=== PATIENT | female | born 1935 | race Caucasian/White ===

== ENCOUNTER → 2016-10-10 | Outpatient (CLI) | payer OTHER ==
[~2016-10-10] MED LIST: ACET-1138 PO; ALBU1AER9 INH; ATRINS INH; Boost Nutritional Drink PO; CALCTAB7 PO; CEPH500C PO; CHOL100027 PO; ENAL1TAB34 PO; FLUT0.15 NAE; FLUTICASONE NASAL NAE; GUAI1TAB68 PO; HYDC25 PO; HYDR25TA4 PO; LATA0.009 OPB; LVQ750 PO; METO25TA3 PO; MONT1TAB5 PO; MULT-506 PO; ONDA8TAB6 PO; OXYSR10 PO; PLQ200 PO; POTA-65 PO; POTA10CA28 PO; PRD/1 PO; PRED-301 PO; PRED10TA PO; PRM/3 PO; RXC5 PO; SPRIN/30 INH; TIOTCAP INH; VNTHFA/IN INH; WARF5TAB90 PO; WLC625 PO; XPNINS INH
== END | disposition home or self-care (01) ==
LOC: C.MAMM 10:21
PROVIDERS: ATTEND Family Medicine
DX: Z78.0 Asymptomatic menopausal state (principal)

== ENCOUNTER → 2016-11-28 | Day surgery (SDC) | payer OTHER ==
[~2016-11-28] MED LIST changes: -ACET-1138 PO; +BRIMONIDINE TART 0.2% OP SOLN PER DROP CHARGE OPR ONE; +BRIMONIDINE TART 0.2% OP SOLN PER DROP CHARGE OPR SCH; +BRIMONIDINE TARTRATE 0.2% 5ML OP SCH; -ONDA8TAB6 PO; -OXYSR10 PO; +PILOCARPINE HCL 2% OP SOLN PER DROP CHARGE OPR SCH; +PREDNISOLONE ACET 1% OPR SCH; -PRM/3 PO; +PROPARACAINE 0.5% OP SOLN PER DROP CHARGE OPR SCH; -RXC5 PO; -WARF5TAB90 PO
--- NOTE | 2016-11-28 11:33 | Discharge Instructions-[facility]urgCtr ---
Discharge Instructions Date of Service Nov 28, 2016. Visit Reason for Visit: Glaucoma Discharge Discharge Diagnosis / Problem: Glaucoma Discharge Goals Goal(s): Improve disease control Activity Recommendations Activity Limitations: per Instructions/Follow-up section Anesthesia . Post Anesthesia Instructions: If you have had General Anesthesia or IV Sedation: * Do not drive today. * Resume driving when surgeon permits. * Do not make important decisions or sign legal documents today. * Call surgeon for: 1. Temperature elevations greater than 101 degrees F. 2. Uncontrollable pain. 3. Excessive bleeding. 4. Persistent nausea and vomiting. 5. Medication intolerance (nausea, vomiting or rash). * For nausea and vomiting use only clear liquids such as: tea, soda, bouillon until nausea subsides, then gradually increase diet as tolerated. * If you have any concerns or questions, call your surgeon's office. If physician is unavailable and it is an emergency, call 911 or go to the nearest emergency room. . Instructions / Follow-Up Instructions / Follow-Up ACTIVITY RECOMMENDATIONS: * No limitations RETURN TO SCHOOL/WORK: * No limitations DIET: * No limitations MEDICATIONS: Resume previous medications unless instructed otherwise by your surgeon. * Please use Prednisolone acetate drops prescription given to you at your office appointment as follows: 1 drop in effected eye 4 times a day for 5 days. * Continue all glaucoma drops as usual with no interruption to either eye. SPECIAL CARE INSTRUCTIONS: Call your doctor at with any concerns or problems. FOLLOW UP VISIT: Follow-up with Dr Coronado in 1 hour. Diet Recommendations Home Diet: resume previous diet Pending Studies Studies pending at discharge: no Medical Emergencies . Who to Call and When: Medical Emergencies: If at any time you feel your situation is an emergency, please call 911 immediately. . Non-Emergent Contact Non-Emergency issues call your: [facility] [employer] . . "Provider Documentation" section prepared by Mk Coronado. .
[2016-11-28 11:34] VITALS: BP 155/95; PULSE 89; O2SAT 93
--- NOTE | 2016-11-28 11:35 | [facility] Operative Report ---
Operative Report Date of Service Nov 28, 2016. Operative Report Diagnosis: Open angle glaucoma, right eye Procedure: SLT inferior 180 degrees right eye, 53 spots, 1.3-1.5mj Complications: none I attest to the content of the Intraoperative Record and any orders documented therein. Any exceptions are noted below.
== END | disposition home or self-care (01) ==
LOC: X.SURG 09:58
PROVIDERS: ATTEND Ophthalmology
DX: H40.1110 Primary open-angle glaucoma, right eye, stage unspecified (principal); I10 Essential (primary) hypertension; J44.9 Chronic obstructive pulmonary disease, unspecified

== ENCOUNTER 2016-12-23 13:03 | Inpatient (IN) | payer OTHER ==
[~2016-12-23] VITALS: Ht 162.6 cm; Wt 77.7 kg
[~2016-12-23 13:03] MED LIST changes: -ATRINS INH; -BRIMONIDINE TART 0.2% OP SOLN PER DROP CHARGE OPR ONE; -BRIMONIDINE TART 0.2% OP SOLN PER DROP CHARGE OPR SCH; -BRIMONIDINE TARTRATE 0.2% 5ML OP SCH; -Boost Nutritional Drink PO; -CEPH500C PO; -FLUT0.15 NAE; -GUAI1TAB68 PO; -HYDR25TA4 PO; -LVQ750 PO; -METO25TA3 PO; -PILOCARPINE HCL 2% OP SOLN PER DROP CHARGE OPR SCH; -PLQ200 PO; -POTA-65 PO; -PRD/1 PO; -PRED-301 PO; -PREDNISOLONE ACET 1% OPR SCH; -PROPARACAINE 0.5% OP SOLN PER DROP CHARGE OPR SCH; -SPRIN/30 INH; -VNTHFA/IN INH; -XPNINS INH
[2016-12-23] MEDS ORDERED: SODIUM CHLORIDE 0.9% 1000ML 1,000 ML IV ONE ×2 (13:15→14:45)
[2016-12-23] MEDS ORDERED: ACETAMINOPHEN 500 MG TAB PO STA (13:15)
--- NOTE | 2016-12-23 13:27 | EMERGENCY ROOM VISIT NOTE ---
History Report prepared by [place]: Ernestine Raphael Under the Supervision of: Dr. Beto Walker M.D. First contact with patient: 13:09 Stated Complaint: WEAKNESS/ POSS. SEPSIS History of Present Illness The patient is a 81 year old female who presents to the Emergency Room with complaints of worsening weakness beginning this morning. The patient states that she has been experiencing a fever and cough. She is very dehydrated feeling. She did experience trouble breathing this morning. The patient denies urinary symptoms, rash, cold like symptoms, chest pain, or abdominal pain. She denies being on any blood thinners. Source of History: patient Onset: this morning Position: other (global) Quality: other (weakness) Timing: worsening Associated Symptoms: + fevers, + cough, No chest pain, No abdominal pain, No urinary symptoms, No rash Review of Systems All systems have been listed, reviewed, and are negative other than those previously mentioned. Please see Additional Medical History Sheet. Past Medical & Surgical Medical Problems: (1) Arthritis of right knee (2) COPD (chronic obstructive pulmonary disease) (3) Cough (4) Hypertension (5) PMR (polymyalgia rheumatica) Family History Cancer Heart disease Hypertension Lung disease Social History Smoking Status: Former Smoker Drug Use: none Marital Status: Housing Status: lives with family Occupation Status: retired Current/Historical Medications Scheduled Calcium Carbonate-Vitamin D W/ (Caltrate 600 Plus), 1 TAB PO BID Cholecalciferol (Vitamin D 1000 Unit), 5,000 INTER.UNIT PO QAM Colesevelam Hcl (Welchol), 625 MG PO BID Enalapril Maleate (Vasotec), 10 MG PO BID Fluticasone Propionate (Nasal) (Flonase Allergy Relief), 2 SPRAYS GREGORIO HS Hydrochlorothiazide (Hctz), 25 MG PO DAILY Latanoprost (Xalatan 0.005% Oph Lizz), 1 DROP OPB HS Montelukast Sodium (Montelukast Sodium), 1 TAB PO HS Multivitamin (Multivitamin), 1 TAB PO QAM Potassium Chloride (Micro-K Ext Rel), 10 MEQ PO QAM Prednisone (Prednisone), 2 MG PO DAILY Prednisone (Prednisone), 10 MG PO DAILY Tiotropium [place] (Spiriva Handihaler), 1 CAP INH DAILY Scheduled PRN Albuterol Hfa (Ventolin Hfa), 2-4 PUFFS INH UD PRN for SOB/Wheezing Allergies Coded Allergies: Aspirin (Verified Allergy, Intermediate, HIVES, 12/23/16) Erythromycin (Verified Allergy, Intermediate, HIVES, N/V, 12/23/16) Nitrofurantoin (Verified Allergy, Intermediate, rash, 12/23/16) Sulfa Antibiotics (Verified Allergy, Intermediate, HIVES, 11/28/16) Amoxicillin (Verified Adverse Reaction, Mild, NAUSEA, 12/23/16) Ciprofloxacin (Verified Adverse Reaction, Mild, N/V, 12/23/16) Clavulanic Acid (Verified Adverse Reaction, Mild, VOMITING, 12/23/16) Codeine (Verified Adverse Reaction, Mild, N/V, 12/23/16) Morphine (Verified Adverse Reaction, Mild, VOMITING, 12/23/16) Physical Exam Vital Signs Date Time Temp Pulse Resp B/P (MAP) Pulse Ox O2 Delivery O2 Flow Rate FiO2 12/23/16 15:31 88 24 113/66 94 Nasal Cannula 2.0 12/23/16 15:15 94 Nasal Cannula 2.0 12/23/16 14:37 88 22 121/62 94 Nasal Cannula 2.0 12/23/16 14:37 37.2 12/23/16 13:53 102 36 146/80 93 Nasal Cannula 2.0 12/23/16 13:13 117 12/23/16 13:05 87 Room Air 12/23/16 13:05 39.4 110 34 161/95 87 Room Air 12/23/16 13:05 93 Nasal Cannula 2.0 Physical Exam GENERAL: Patient awake, alert, oriented x 3. Patient follows commands. Patient does not appear toxic. Patient is adequately hydrated and well- nourished. SKIN: No erythema, pallor, cyanosis or rash HEENT: Normal head, pupils equal, reactive to light and accommodation. Oral cavity and posterior pharynx appear normal. Very dry mucous membranes. Neck: Without adenopathy, no neck vein distention. LUNGS: Clear to auscultation. No wheezes, no rales, no rhonchi. HEART: Regular rapid rate. No murmurs. No gallops. No rubs ABDOMEN: No masses, no rebound, no hepatomegaly or splenomegaly. BACK: Slightly kyphotic. EXTREMITIES: No signs of trauma. No pedal or pretibial edema. No calf or thigh tenderness. Scar over both knees. SKIN: No rash. Warm to touch. NEUROLOGIC: Cranial nerves II-XII within normal limits. No gross motor sensory function deficits. Medical Decision & Procedures ER Provider Diagnostic Interpretation: X ray results are stated below per my interpretation and the radiologist's interpretation. CHEST ONE VIEW PORTABLE CLINICAL HISTORY: Sepsis COMPARISON STUDY: 04/07/2016 FINDINGS: The heart is enlarged. There is right upper lobe airspace consolidation consistent with pneumonia. Films subsequent to treatment are recommended in follow-up. There is no failure. There are bibasal atelectatic changes.[ IMPRESSION: Right upper lobe consolidation consistent with pneumonia. Films subsequent to treatment are recommended in follow-up Electronically signed by: German Askew M.D. 12/23/2016 1:39 PM Dictated Date/Time: 12/23/2016 1:39 PM Laboratory Results 12/23/16 13:50 Red Blood Count 4.66, Mean Corpuscular Volume 88.6, Mean Corpuscular Hemoglobin 29.8, Mean Corpuscular Hemoglobin Concent 33.7, Mean Platelet Volume 8.5, Neutrophils (%) (Auto) 85.1, Lymphocytes (%) (Auto) 4.4, Monocytes (%) (Auto) 9.8, Eosinophils (%) (Auto) 0.0, Basophils (%) (Auto) 0.2, Neutrophils # (Auto) 14.53, Lymphocytes # (Auto) 0.76, Monocytes # (Auto) 1.67, Eosinophils # (Auto) 0.00, Basophils # (Auto) 0.03 12/23/16 13:50 Test 12/23/16 13:30 12/23/16 13:39 12/23/16 13:50 12/23/16 13:58 Influenza Type A Antigen Neg for Influ A (NEG) Influenza Type B Antigen Neg for Influ B (NEG) Urine Color ORANGE Urine Appearance TURBID (CLEAR) Urine pH 5.5 (4.5-7.5) Urine Specific [place] 1.020 (1.000-1.030) Urine Protein 2+ (NEG) Urine Glucose (UA) NEG (NEG) Urine Ketones 2+ (NEG) Urine Occult Blood 3+ (NEG) Urine Nitrite POS (NEG) Urine Bilirubin NEG (NEG) Urine Urobilinogen NEG (NEG) Urine Leukocyte Esterase MODERATE (NEG) Urine WBC (Auto) >30 /hpf (0-5) Urine RBC (Auto) 10-30 /hpf (0-4) Urine Hyaline Casts (Auto) 5-10 /lpf (0-5) Urine Epithelial Cells (Auto) 10-20 /lpf (0-5) Urine Bacteria (Auto) 4+ (NEG) Urine Pathogenic Casts /lpf (0) Urine Mucus PRESENT (NONE PRSENT) White Blood Count 17.08 K/uL (4.8-10.8) Red Blood Count 4.66 M/uL (4.2-5.4) Hemoglobin 13.9 g/dL (12.0-16.0) Hematocrit 41.3 % (37-47) Mean Corpuscular Volume 88.6 fL (80-100) Mean Corpuscular Hemoglobin 29.8 pg (25-34) Mean Corpuscular Hemoglobin Concent 33.7 g/dl (32-36) Platelet Count 251 K/uL (130-400) Mean Platelet Volume 8.5 fL (7.4-10.4) Neutrophils (%) (Auto) 85.1 % Lymphocytes (%) (Auto) 4.4 % Monocytes (%) (Auto) 9.8 % Eosinophils (%) (Auto) 0.0 % Basophils (%) (Auto) 0.2 % Neutrophils # (Auto) 14.53 K/uL (1.4-6.5) Lymphocytes # (Auto) 0.76 K/uL (1.2-3.4) Monocytes # (Auto) 1.67 K/uL (0.11-0.59) Eosinophils # (Auto) 0.00 K/uL (0-0.5) Basophils # (Auto) 0.03 K/uL (0-0.2) RDW Standard Deviation 48.5 fL (36.4-46.3) RDW Coefficient of Variation 14.9 % (11.5-14.5) Immature Granulocyte % (Auto) 0.5 % Immature Granulocyte # (Auto) 0.09 K/uL (0.00-0.02) Prothrombin Time 12.7 SECONDS (9.0-12.0) Prothromb Time International Ratio 1.2 (0.9-1.1) Activated Partial Thromboplast Time 40.8 SECONDS (21.0-31.0) Partial Thromboplastin Ratio 1.6 Anion Gap 10.0 mmol/L (3-11) Estimated GFR () 61.2 Estimated GFR (Non- 52.8 BUN/Creatinine Ratio 11.6 (10-20) Calcium Level 9.1 mg/dl (8.5-10.1) Total Bilirubin 1.4 mg/dl (0.2-1) Aspartate Amino Transf (AST/SGOT) 24 U/L (15-37) Alanine Aminotransferase (ALT/SGPT) 21 U/L (12-78) Alkaline Phosphatase 98 U/L (45-117) Total Protein 6.9 gm/dl (6.4-8.2) Albumin 2.3 gm/dl (3.4-5.0) Globulin 4.6 gm/dl (2.5-4.0) Albumin/Globulin Ratio 0.5 (0.9-2) Bedside Lactic Acid Venous 1.10 mmol/L (0.90-1.70) Laboratory results as stated above per my review. Medications Administered Medications (Trade) Dose Ordered Sig/Amos Route Start Time Stop Time Status Last Admin Dose Admin Sodium Chloride 1,000 ml @ 999 mls/hr Q1H1M ONCE IV 12/23/16 13:15 12/23/16 14:15 DC 12/23/16 13:15 999 MLS/HR Acetaminophen (Tylenol Tab) 1,000 mg NOW STAT PO 12/23/16 13:15 12/23/16 13:22 DC 12/23/16 13:15 1,000 MG Aztreonam 2000 mg/ Dextrose 110 ml @ 100 mls/hr ONE ONCE IV 12/23/16 14:45 12/23/16 15:50 DC 12/23/16 14:57 100 MLS/HR Sodium Chloride 1,000 ml @ 500 mls/hr Q2H ONCE IV 12/23/16 14:45 12/23/16 16:33 DC 12/23/16 14:45 500 MLS/HR Levofloxacin (Levaquin / D5W) 750 mg NOW ONCE IV 12/23/16 15:00 12/23/16 15:01 DC 12/23/16 15:25 750 MG Hydrocortisone Sodium Succinate (Solu-Cortef IV) 100 mg STK-MED ONCE .ROUTE 12/23/16 15:20 12/23/16 15:21 DC 12/23/16 15:26 100 MG ECG Indication: weakness Rate (beats per minute): 110 Rhythm: sinus tachycardia Findings: no acute ischemic change, no ectopy ED Course 1309: Past medical records reviewed. The patient was evaluated in room B6. A complete history and physical examination was performed. 1315: Tylenol Tab 1,000 mg PO, Sodium Chloride 1,000 ml @ 999 mls/hr IV. 1440: I discussed the patient's test results with the patient and her family at length and answered questions they had. 1445: Sodium Chloride 1,000 ml @ 500 mls/hr IV, Aztreonam 2,000 mg/ Dextrose 110 ml @ 100 mls/hr IV/ 1500: Zofran Inj 4 mg IV, Levaquin / D5W 750 mg IV, Hydrocortisone Sodium Succinate 100 mg/ Syringe 2ml @ 4 mls/min. 1502: [facility]iscuss[facility] the [facility]'s [facility] The patient will be evaluated for further management. 1505: Upon reevaluation, the patient is hemodynamically stable.I discussed today 's findings with the patient and her family. They verbalized agreement of the treatment plan. [facility] for further management. Medical Decision Nurses notes reviewed. Medical history sheet reviewed. Differential diagnosis includes but is not limited to: sepsis, pneumonia, UTI, dehydration, metabolic disorder. Medication Reconciliation: I attest that I have personally reviewed the patient' s current medication list. Blood Pressure Screening: Patient was found to have an elevated blood pressure and was referred to their primary doctor for recheck and further treatment. Multiple labs, EKG, urinalysis and imaging were obtained. Please see above. Chest x-ray reveals a pneumonia. Patient has questionable allergies to penicillins and quinolones but on further questioning she states that she gets nauseous. Patient was given IV aztreonam and Levaquin after blood cultures were obtained. Patient had no adverse reaction while here in the ED. Patient also appears to have a urinary tract infection. White count is markedly elevated. Lactic acid is not elevated. The patient is normally on penicillin for her polymyalgia rheumatica. I gave her a stress dose of IV hydrocortisone. Follow I discussed care with the hospitalist. I also discussed care with the patient and family members. Consults Time Called: 1500 Consulting Physician: Dr. Dilma Morris Returned Call: 1502 Discussed the patient's case with Dr. Dilma Morris. The patient will be evaluated for further management. Impression Primary Impression: Pneumonia Additional Impressions: Dehydration UTI (urinary tract infection) Critical Care I have personally spent greater than 35 minutes of critical care time in the direct management of this patient. This includes bedside care, interpretation of diagnostic studies, and testing, discussion with consultants, patient, and family members, and other required patient management activities. This 35 minutes is in excess of all separately billable procedures. Scribe Attestation The scribe's documentation has been prepared under my direction and personally reviewed by me in its entirety. I confirm that the note above accurately reflects all work, treatment, procedures, and medical decision making performed by me. Departure Information Dispostion Being Evaluated By Hospitalist Referrals Casa Bradley DDarien. (PCP) Problem Qualifiers
[2016-12-23] MEDS ORDERED: HYDR25TA4 PO (13:31)
[2016-12-23] MEDS ORDERED: SPRIN/30 INH (13:31)
[2016-12-23] MEDS ORDERED: VNTHFA/IN INH (13:31)
[2016-12-23] MEDS ORDERED: FLUT0.15 NAE (13:31)
--- NOTE | 2016-12-23 13:41 | DIAGNOSTIC IMAGING REPORT ---
CHEST ONE VIEW PORTABLE CLINICAL HISTORY: Sepsis COMPARISON STUDY: 04/07/2016 FINDINGS: The heart is enlarged. There is right upper lobe airspace consolidation consistent with pneumonia. Films subsequent to treatment are recommended in follow-up. There is no failure. There are bibasal atelectatic changes.[ IMPRESSION: Right upper lobe consolidation consistent with pneumonia. Films subsequent to treatment are recommended in follow-up Electronically signed by: German Askew M.D. 12/23/2016 1:39 PM Dictated Date/Time: 12/23/2016 1:39 PM
[2016-12-23] MEDS ORDERED: PRED-301 PO (14:07)
[2016-12-23] MEDS ORDERED: PRD/1 PO (14:07)
[2016-12-23 14:11] LABS: BASO % 0.2 %; BASO ABS # 0.03 K/uL (0-0.2); COMPLETE YES; HEMATOCRIT 41.3 % (37-47); IG% 0.5 %; LYMPH % 4.4 %; LYMPH ABS # 0.76 K/uL (1.2-3.4); MEAN CELL VOLUME 88.6 fL (80-100); MEAN CORPUSCULAR HEMOGLOBIN 29.8 pg (25-34); MEAN CORPUSCULAR HGB CONC 33.7 g/dl (32-36); MEAN PLATELET VOLUME 8.5 fL (7.4-10.4); MONO % 9.8 %; NEUT % 85.1 %; PLATELET COUNT 251 K/uL (130-400); RED BLOOD COUNT 4.66 M/uL (4.2-5.4); WHITE BLOOD COUNT 17.08 K/uL (4.8-10.8)
[2016-12-23 14:20] LABS: INR 1.2 (0.9-1.1); PARTIAL THROMBOPLASTIN RATIO 1.6; PROTHROMBIN TIME (PATIENT) 12.7 SECONDS (9.0-12.0)
[2016-12-23 14:29] LABS: ALT/SGPT 21 U/L (12-78); BLOOD UREA NITROGEN 12 mg/dl (7-18); BUN/CREATININE RATIO 11.6 (10-20); CALCIUM 9.1 mg/dl (8.5-10.1); CARBON DIOXIDE 26 mmol/L (21-32); CHLORIDE 99 mmol/L (98-107); GLUCOSE 112 mg/dl (70-99); POTASSIUM 3.3 mmol/L (3.5-5.1); SODIUM 135 mmol/L (136-145)
[2016-12-23 14:32] LABS: ALB/GLOB RATIO 0.5 (0.9-2); ALKALINE PHOSPHATASE 98 U/L (45-117); AST/SGOT 24 U/L (15-37)
[2016-12-23 14:41] LABS: URINE APPEARANCE TURBID (CLEAR); URINE COLOR ORANGE; URINE NITRITE POS (NEG); URINE PH 5.5 (4.5-7.5); UROBILINOGEN NEG (NEG); ZZURINE CULT IF INDIC CATH YES
[2016-12-23 14:45] LABS: MANUAL MICROSCOPIC REQUIRED? NO; REVIEW REQ? YES
[2016-12-23] MEDS ORDERED: AZTREONAM IV 2,000 MG in DEXTROSE 5% 100ML 100 ML IV ONE (14:45)
[2016-12-23 14:54] LABS: URINE BILIRUBIN NEG (NEG)
[2016-12-23 14:57] LABS: URINE MUCUS PRESENT (NONE PRSENT)
[2016-12-23] MEDS ORDERED: HYDROCORTISONE IV 100 MG in SYRINGE 0 ML IV ONE (15:00)
[2016-12-23] MEDS ORDERED: LEVAQUIN 750MG / 150ML D5W IV ONE (15:00)
[2016-12-23] MEDS ORDERED: ONDANSETRON INJ 2 MG/ML 2 ML VIAL IV PRN ×2 (15:00→15:45)
--- NOTE | 2016-12-23 15:09 | History and Physical ---
History & Physical Date & Time of Service: Dec 23, 2016 at 15:09 Chief Complaint: Weakness/ Poss. Sepsis Primary Care Physician: Casa Bradley D.O. History of Present Illness Source: patient, family Patient is a 81 yr female with PMH of COPD, Polymyalgia rheumatica, Rosacea, HTN , HLP and other problems presents with fever, cough and weakness since 3 days duration. CXR is consistent with pneumonia. Patient reports cough is dry, intermittent. Recently travelled to [place] and believes she could have encountered a sick friend. She reports generalized weakness and decreased appetite since 2 days. Denies any SOB, chest pain, nausea, vomiting, diarrhea, abdominal pain, dizziness. States having urinary urgency and had UTIs in the past. Offers no other relevant history. Past Medical/Surgical History Medical Problems: (1) COPD (chronic obstructive pulmonary disease) Status: Chronic (2) Hypertension Status: Chronic (3) PMR (polymyalgia rheumatica) Status: Chronic Family History Cancer Heart disease Hypertension Lung disease Not contributory Social History Smoking Status: Former Smoker Alcohol Use: none Drug Use: none Marital Status: Occupational Status: retired Multi-Drug Resistant Organisms History of MDRO: No Allergies Coded Allergies: Aspirin (Verified Allergy, Intermediate, HIVES, 12/23/16) Erythromycin (Verified Allergy, Intermediate, HIVES, N/V, 12/23/16) Nitrofurantoin (Verified Allergy, Intermediate, rash, 12/23/16) Sulfa Antibiotics (Verified Allergy, Intermediate, HIVES, 11/28/16) Amoxicillin (Verified Adverse Reaction, Mild, NAUSEA, 12/23/16) Ciprofloxacin (Verified Adverse Reaction, Mild, N/V, 12/23/16) Clavulanic Acid (Verified Adverse Reaction, Mild, VOMITING, 12/23/16) Codeine (Verified Adverse Reaction, Mild, N/V, 12/23/16) Morphine (Verified Adverse Reaction, Mild, VOMITING, 12/23/16) Home Medications Scheduled Calcium Carbonate-Vitamin D W/ (Caltrate 600 Plus), 1 TAB PO BID Cholecalciferol (Vitamin D 1000 Unit), 5,000 INTER.UNIT PO QAM Colesevelam Hcl (Welchol), 625 MG PO BID Enalapril Maleate (Vasotec), 10 MG PO BID Fluticasone Propionate (Nasal) (Flonase Allergy Relief), 2 SPRAYS GREGORIO HS Hydrochlorothiazide (Hctz), 25 MG PO DAILY Latanoprost (Xalatan 0.005% Oph Lizz), 1 DROP OPB HS Montelukast Sodium (Montelukast Sodium), 1 TAB PO HS Multivitamin (Multivitamin), 1 TAB PO QAM Potassium Chloride (Micro-K Ext Rel), 10 MEQ PO QAM Prednisone (Prednisone), 2 MG PO DAILY Prednisone (Prednisone), 10 MG PO DAILY Tiotropium [place] (Spiriva Handihaler), 1 CAP INH DAILY Scheduled PRN Albuterol Hfa (Ventolin Hfa), 2-4 PUFFS INH UD PRN for SOB/Wheezing Review of Systems See HPI for pertinent positives & negatives. A total of 10 systems reviewed and were otherwise negative. Physical Exam Vital Signs Date Time Temp Pulse Resp B/P (MAP) Pulse Ox O2 Delivery O2 Flow Rate FiO2 12/23/16 14:37 88 22 121/62 94 Nasal Cannula 2.0 12/23/16 14:37 37.2 12/23/16 13:53 102 36 146/80 93 Nasal Cannula 2.0 12/23/16 13:13 117 12/23/16 13:05 87 Room Air 12/23/16 13:05 39.4 110 34 161/95 87 Room Air 12/23/16 13:05 93 Nasal Cannula 2.0 General Appearance: WD/WN, no apparent distress Head: normocephalic, atraumatic Eyes: normal inspection, PERRL, EOMI, sclerae normal ENT: normal ENT inspection, hearing grossly normal Neck: supple, trachea midline Respiratory/Chest: chest non-tender, lungs clear, no respiratory distress, no accessory muscle use, + decreased breath sounds Cardiovascular: regular rate, rhythm, no edema, no murmur, + tachycardia Abdomen/GI: normal bowel sounds, non tender, soft Back: normal inspection Extremities/Musculoskelatal: normal inspection, no pedal edema Neurologic/Psych: crane helper II-XII nml as tested, no motor/sensory deficits, alert, normal mood/affect, oriented x 3 Skin: warm/dry, + pertinent finding (+Rosacea ) Diagnostics Laboratory Results Results Past 24 Hours Test 12/23/16 13:30 12/23/16 13:39 12/23/16 13:50 12/23/16 13:58 Range/Units Influenza Type A Antigen Neg for Influ A NEG Influenza Type B Antigen Neg for Influ B NEG Urine Color ORANGE Urine Appearance TURBID CLEAR Urine pH 5.5 4.5-7.5 Urine Specific [place] 1.020 1.000-1.030 Urine Protein 2+ NEG Urine Glucose (UA) NEG NEG Urine Ketones 2+ NEG Urine Occult Blood 3+ NEG Urine Nitrite POS NEG Urine Bilirubin NEG NEG Urine Urobilinogen NEG NEG Urine Leukocyte Esterase MODERATE NEG Urine WBC (Auto) >30 0-5 /hpf Urine RBC (Auto) 10-30 0-4 /hpf Urine Epithelial Cells (Auto) 10-20 0-5 /lpf Urine Bacteria (Auto) 4+ NEG Urine Pathogenic Casts 0 /lpf Urine Mucus PRESENT NONE PRSENT White Blood Count 17.08 4.8-10.8 K/uL Red Blood Count 4.66 4.2-5.4 M/uL Hemoglobin 13.9 12.0-16.0 g/dL Hematocrit 41.3 37-47 % Mean Corpuscular Volume 88.6 80-100 fL Mean Corpuscular Hemoglobin 29.8 25-34 pg Mean Corpuscular Hemoglobin Concent 33.7 32-36 g/dl Platelet Count 251 130-400 K/uL Mean Platelet Volume 8.5 7.4-10.4 fL Neutrophils (%) (Auto) 85.1 % Lymphocytes (%) (Auto) 4.4 % Monocytes (%) (Auto) 9.8 % Eosinophils (%) (Auto) 0.0 % Basophils (%) (Auto) 0.2 % Neutrophils # (Auto) 14.53 1.4-6.5 K/uL Lymphocytes # (Auto) 0.76 1.2-3.4 K/uL Monocytes # (Auto) 1.67 0.11-0.59 K/uL Eosinophils # (Auto) 0.00 0-0.5 K/uL Basophils # (Auto) 0.03 0-0.2 K/uL RDW Standard Deviation 48.5 36.4-46.3 fL RDW Coefficient of Variation 14.9 11.5-14.5 % Immature Granulocyte % (Auto) 0.5 % Immature Granulocyte # (Auto) 0.09 0.00-0.02 K/uL Prothrombin Time 12.7 9.0-12.0 SECONDS Prothromb Time International Ratio 1.2 0.9-1.1 Activated Partial Thromboplast Time 40.8 21.0-31.0 SECONDS Partial Thromboplastin Ratio 1.6 Sodium Level 135 136-145 mmol/L Potassium Level 3.3 3.5-5.1 mmol/L Chloride Level 99 98-107 mmol/L Carbon Dioxide Level 26 21-32 mmol/L Anion Gap 10.0 3-11 mmol/L Blood Urea Nitrogen 12 7-18 mg/dl Creatinine 1.00 0.60-1.20 mg/dl Estimated GFR () 61.2 Estimated GFR (Non- 52.8 BUN/Creatinine Ratio 11.6 10-20 Random Glucose 112 70-99 mg/dl Calcium Level 9.1 8.5-10.1 mg/dl Total Bilirubin 1.4 0.2-1 mg/dl Aspartate Amino Transf (AST/SGOT) 24 15-37 U/L Alanine Aminotransferase (ALT/SGPT) 21 12-78 U/L Alkaline Phosphatase 98 45-117 U/L Total Protein 6.9 6.4-8.2 gm/dl Albumin 2.3 3.4-5.0 gm/dl Globulin 4.6 2.5-4.0 gm/dl Albumin/Globulin Ratio 0.5 0.9-2 Bedside Lactic Acid Venous 1.10 0.90-1.70 mmol/L Microbiology Results 12/23/16 Blood Culture, Received Pending 12/23/16 Blood Culture, Received Pending 12/23/16 Urine Culture, Received Pending Diagnostic Radiology CXR: Right upper lobe consolidation consistent with pneumonia. Films subsequent to treatment are recommended in follow-up EKG EKG: Sinus tachycardia Impression Assessment and Plan Sepsis: CAP Presented with Leukocytosis, Tachycardia, fever, Hypoxia CXR: consistent with pneumonia On chronic prednisone for PMR Stress dose steroids given in ED Blood/Urine cultures Start on IV Levaquin 750mg daily IV fluids Monitor in Tele Hold HCTZ Lactate:1.1 Hypokalemia: Potassium:3.3 Will replace and monitor Possible UTI: UA suggestive of UTI Continue Levaquin Follow Urine culture COPD No signs of exacerbation Oxygen per protocol Duonebs QID Continue home inhalers On chronic prednisone for PMR Polymyalgia rheumatica: On prednisone 12mg daily started by PCP Planning to see rheumatology as outpatient No acute issues HTN: Hold HCTZ Stable DVT Px: Lovenox SQ Code Status: Full code
[2016-12-23 15:15] VITALS: O2SAT 94; Ht 162.6 cm; Wt 77.7 kg
[2016-12-23] MEDS ORDERED: HYDROCORTISONE SOD SUCCINATE 100 MG/2 ML VIAL ONE (15:20)
[2016-12-23] MEDS ORDERED: ACETAMINOPHEN 325 MG TAB PO PRN (15:45)
[2016-12-23] MEDS: ALBUT/IPRATROP 3MG/0.5MG NEB 3 ML VIAL INH SCH ×2 (16:00→18:51)
[2016-12-23 17:00] VITALS: BP 118/61; PULSE 87; TEMP 36.7; O2SAT 94; O2SAT 95
[2016-12-23] MEDS: NSS + 20MEQ KCL 1000ML 1,000 ML IV SCH (18:09)
[2016-12-23 18:51] VITALS: PULSE 87; O2SAT 96
[2016-12-23 19:28] VITALS: BP 109/70; PULSE 79; TEMP 36.6; O2SAT 96
[2016-12-23] MEDS: LATANOPROST 0.005% OP SOLN 2.5 ML BTL OPB SCH (21:03)
[2016-12-23] MEDS: FLUTICASONE PROPIONATE NA SPR 16 GM BTL NAE SCH (21:05)
[2016-12-23] MEDS: COLESEVELAM 625 MG TAB PO SCH (21:06)
[2016-12-23] MEDS: MONTELUKAST SOD 10 MG TAB PO SCH (21:06)
[2016-12-23] MEDS: ENALAPRIL MALEATE 10 MG TAB PO SCH (21:06)
[2016-12-23] MEDS: ENOXAPARIN 40 MG/0.4 ML SYR SC SCH (21:07)
[2016-12-24] VITALS (14 sets, daily range): BP systolic 128–154; BP diastolic 6–83; PULSE 81–102; TEMP 35.6–37.4; O2SAT 91–97
[2016-12-24] MEDS: NSS + 20MEQ KCL 1000ML 1,000 ML IV SCH ×3 (02:58→23:19)
[2016-12-24 06:43] LABS: BASO % 0.1 %; BASO ABS # 0.01 K/uL (0-0.2); COMPLETE YES; IG% 0.6 %; LYMPH % 4.4 %; LYMPH ABS # 0.74 K/uL (1.2-3.4); MEAN CELL VOLUME 89.1 fL (80-100); MEAN CORPUSCULAR HEMOGLOBIN 28.3 pg (25-34); MEAN CORPUSCULAR HGB CONC 31.8 g/dl (32-36); MEAN PLATELET VOLUME 8.4 fL (7.4-10.4); MONO % 7.2 %; NEUT % 87.7 %; PLATELET COUNT 261 K/uL (130-400); RED BLOOD COUNT 4.49 M/uL (4.2-5.4); WHITE BLOOD COUNT 17.01 K/uL (4.8-10.8)
[2016-12-24] MEDS: ALBUT/IPRATROP 3MG/0.5MG NEB 3 ML VIAL INH SCH ×2 (07:05→11:09)
[2016-12-24 07:15] LABS: CREATININE 0.82 mg/dl (0.60-1.20)
[2016-12-24 07:16] LABS: BUN/CREATININE RATIO 13.4 (10-20); CALCIUM 9.2 mg/dl (8.5-10.1); POTASSIUM 3.9 mmol/L (3.5-5.1)
[2016-12-24] MEDS: COLESEVELAM 625 MG TAB PO SCH ×2 (08:30→20:06)
[2016-12-24] MEDS: ENALAPRIL MALEATE 10 MG TAB PO SCH ×2 (08:30→20:05)
[2016-12-24] MEDS: POTASSIUM CHLORIDE 10 MEQ TABCR PO SCH (08:31)
--- NOTE | 2016-12-24 12:36 | Progress Note ---
Medicine Progress Note Date & Time of Visit: Dec 24, 2016 at 12:21. Subjective Pt was seen and examined Lying in bed with no distress Pt said that she feels much better she said that she is able to breath better denies any chest pain, palpitation, chills and fever Objective Last 8 Hrs Date Time Temp Pulse Resp B/P (MAP) Pulse Ox O2 Delivery O2 Flow Rate FiO2 12/24/16 11:39 35.6 95 20 136/6 (49) 96 Room Air 12/24/16 11:10 92 16 95 Nasal Cannula 2.0 12/24/16 08:00 95 Nasal Cannula 2.0 12/24/16 07:56 36.6 96 20 147/83 (104) 97 Nasal Cannula 2.0 12/24/16 07:06 94 16 93 Nasal Cannula 2.0 Physical Exam: General- No acute distress Head- atraumatic Eyes- PERRL, EOMI ENT- oropharynx clear Neck- supple, no JVD Lungs- Poor air entry, no wheezing Heart- regular rhythm Abdomen- normal bowel sounds, soft Extremities- no calf tenderness Neuro- alert, oriented x 3; PERRL, EOMI Skin- warm & dry Laboratory Results: Last 24 Hours Test 12/23/16 13:30 12/23/16 13:39 12/23/16 13:50 12/23/16 13:58 Influenza Type A Antigen Neg for Influ A Influenza Type B Antigen Neg for Influ B Urine Color ORANGE Urine Appearance TURBID Urine pH 5.5 Urine Specific [place] 1.020 Urine Protein 2+ Urine Glucose (UA) NEG Urine Ketones 2+ Urine Occult Blood 3+ Urine Nitrite POS Urine Bilirubin NEG Urine Urobilinogen NEG Urine Leukocyte Esterase MODERATE Urine WBC (Auto) >30 /hpf Urine RBC (Auto) 10-30 /hpf Urine Hyaline Casts (Auto) 5-10 /lpf Urine Epithelial Cells (Auto) 10-20 /lpf Urine Bacteria (Auto) 4+ Urine Pathogenic Casts /lpf Urine Mucus PRESENT White Blood Count 17.08 K/uL Red Blood Count 4.66 M/uL Hemoglobin 13.9 g/dL Hematocrit 41.3 % Mean Corpuscular Volume 88.6 fL Mean Corpuscular Hemoglobin 29.8 pg Mean Corpuscular Hemoglobin Concent 33.7 g/dl Platelet Count 251 K/uL Mean Platelet Volume 8.5 fL Neutrophils (%) (Auto) 85.1 % Lymphocytes (%) (Auto) 4.4 % Monocytes (%) (Auto) 9.8 % Eosinophils (%) (Auto) 0.0 % Basophils (%) (Auto) 0.2 % Neutrophils # (Auto) 14.53 K/uL Lymphocytes # (Auto) 0.76 K/uL Monocytes # (Auto) 1.67 K/uL Eosinophils # (Auto) 0.00 K/uL Basophils # (Auto) 0.03 K/uL RDW Standard Deviation 48.5 fL RDW Coefficient of Variation 14.9 % Immature Granulocyte % (Auto) 0.5 % Immature Granulocyte # (Auto) 0.09 K/uL Prothrombin Time 12.7 SECONDS Prothromb Time International Ratio 1.2 Activated Partial Thromboplast Time 40.8 SECONDS Partial Thromboplastin Ratio 1.6 Sodium Level 135 mmol/L Potassium Level 3.3 mmol/L Chloride Level 99 mmol/L Carbon Dioxide Level 26 mmol/L Anion Gap 10.0 mmol/L Blood Urea Nitrogen 12 mg/dl Creatinine 1.00 mg/dl Estimated GFR () 61.2 Estimated GFR (Non- 52.8 BUN/Creatinine Ratio 11.6 Random Glucose 112 mg/dl Calcium Level 9.1 mg/dl Total Bilirubin 1.4 mg/dl Aspartate Amino Transf (AST/SGOT) 24 U/L Alanine Aminotransferase (ALT/SGPT) 21 U/L Alkaline Phosphatase 98 U/L Total Protein 6.9 gm/dl Albumin 2.3 gm/dl Globulin 4.6 gm/dl Albumin/Globulin Ratio 0.5 Bedside Lactic Acid Venous 1.10 mmol/L Test 12/24/16 06:09 White Blood Count 17.01 K/uL Red Blood Count 4.49 M/uL Hemoglobin 12.7 g/dL Hematocrit 40.0 % Mean Corpuscular Volume 89.1 fL Mean Corpuscular Hemoglobin 28.3 pg Mean Corpuscular Hemoglobin Concent 31.8 g/dl Platelet Count 261 K/uL Mean Platelet Volume 8.4 fL Neutrophils (%) (Auto) 87.7 % Lymphocytes (%) (Auto) 4.4 % Monocytes (%) (Auto) 7.2 % Eosinophils (%) (Auto) 0.0 % Basophils (%) (Auto) 0.1 % Neutrophils # (Auto) 14.93 K/uL Lymphocytes # (Auto) 0.74 K/uL Monocytes # (Auto) 1.22 K/uL Eosinophils # (Auto) 0.00 K/uL Basophils # (Auto) 0.01 K/uL RDW Standard Deviation 48.7 fL RDW Coefficient of Variation 15.0 % Immature Granulocyte % (Auto) 0.6 % Immature Granulocyte # (Auto) 0.11 K/uL Sodium Level 142 mmol/L Potassium Level 3.9 mmol/L Chloride Level 105 mmol/L Carbon Dioxide Level 28 mmol/L Anion Gap 9.0 mmol/L Blood Urea Nitrogen 11 mg/dl Creatinine 0.82 mg/dl Est Creatinine Clear Calc Drug Dose 55.1 ml/min Estimated GFR () 77.8 Estimated GFR (Non- 67.1 BUN/Creatinine Ratio 13.4 Random Glucose 95 mg/dl Calcium Level 9.2 mg/dl Date/Time Source Procedure Growth Status 12/23/16 14:35 Blood Blood Culture Pending Received 12/23/16 14:20 Blood Blood Culture Pending Received 12/23/16 13:39 Urine,Catheterized Urine Culture - Preliminary Escherichia Coli Resulted Assessment & Plan Sepsis Presented on admission with Leukocytosis, Tachycardia, fever, Hypoxia Possible 2nd to CAP CXR showed right upper lobe consolidation consistent with pneumonia Stress dose steroids and IV Azactam in ED Blood pending urine cx growth Ecoli Continue levaquin 750 mg daily Will D/C IVF Continue monitor WBC Monitor in Tele UTI UA positive for UTI Urine cx grew EColi On Levaquin for pneumonia will follow sensitivity Hypokalemia: K stable Monitor BMP COPD No signs of exacerbation saturated well on RA DuoNeb QID Continue home inhalers On chronic prednisone for PMR Polymyalgia rheumatica: On prednisone 12mg daily started by PCP Planning to see rheumatology as outpatient No acute issues HTN: Stable Will resume HCTZ DVT Px: Lovenox SQ Code Status Full code Current Inpatient Medications: Current Inpatient Medications Medications (Trade) Dose Ordered Sig/Amos Route Start Time Stop Time Status Last Admin Dose Admin Enoxaparin Sodium (Lovenox Inj) 40 mg Q24H SC 12/23/16 21:00 01/22/17 20:59 12/23/16 21:07 40 MG Potassium Chloride/Sodium Chloride 1,000 ml @ 100 mls/hr Q10H IV 12/23/16 17:00 01/22/17 15:41 12/24/16 02:58 100 MLS/HR Acetaminophen (Tylenol Tab) 650 mg Q4H PRN PO 12/23/16 15:45 01/22/17 15:44 Ondansetron HCl (Zofran Inj) 4 mg Q6H PRN IV 12/23/16 15:45 01/22/17 15:44 Levofloxacin 750 mg/Prmx 150 ml @ 100 mls/hr Q24H IV 12/24/16 16:00 12/30/16 23:59 Albuterol/ Ipratropium (Duoneb) 3 ml QIDR INH 12/23/16 16:00 01/22/17 15:59 12/24/16 11:09 3 ML Enalapril Maleate (Vasotec Tab) 10 mg BID PO 12/23/16 21:00 01/22/17 20:59 12/24/16 08:30 10 MG Fluticasone Propionate (Flonase Nasal [place]) 2 sprays HS GREGORIO 12/23/16 21:00 01/22/17 20:59 12/23/16 21:05 2 SPRAYS Latanoprost (Xalatan Oph Soln) 1 drops HS OPB 12/23/16 21:00 01/22/17 20:59 12/23/16 21:03 1 DROPS Montelukast Sodium (Singulair Tab) 10 mg HS PO 12/23/16 21:00 01/22/17 20:59 12/23/16 21:06 10 MG Potassium Chloride (Klor-Con M10) 10 meq QAM PO 12/24/16 09:00 01/23/17 08:59 12/24/16 08:31 10 MEQ Prednisone (PredniSONE TAB) 10 mg DAILY PO 12/24/16 09:00 01/23/17 08:59 12/24/16 08:31 10 MG Prednisone (PredniSONE TAB) 2 mg DAILY PO 12/24/16 09:00 01/23/17 08:59 12/24/16 08:31 2 MG Colesevelam HCl (Welchol) 625 mg BID@1000,2200 PO 12/23/16 22:00 01/22/17 21:59 12/24/16 08:30 625 MG
[2016-12-24] MEDS: LEVOFLOXACIN / D5W 750 MG in PREMIXED IN D5W 150 ML IV SCH (15:49)
[2016-12-24] MEDS: IPRATROPIUM BROMIDE/ALBUTEROL respimat INH INH SCH (20:04)
[2016-12-24] MEDS: FLUTICASONE PROPIONATE NA SPR 16 GM BTL NAE SCH (20:04)
[2016-12-24] MEDS: LATANOPROST 0.005% OP SOLN 2.5 ML BTL OPB SCH (20:05)
[2016-12-24] MEDS: MONTELUKAST SOD 10 MG TAB PO SCH (20:05)
[2016-12-24] MEDS: ENOXAPARIN 40 MG/0.4 ML SYR SC SCH (20:06)
[2016-12-25] VITALS (13 sets, daily range): BP systolic 143–180; BP diastolic 79–103; PULSE 86–114; TEMP 36.7–37.2; O2SAT 92–98
[2016-12-25] MEDS: ALBUT/IPRATROP 3MG/0.5MG NEB 3 ML VIAL INH SCH ×6 (01:21→19:04)
[2016-12-25] MEDS ORDERED: FUROSEMIDE INJ 20 MG in SYRINGE 0 ML IV ONE (05:00)
--- NOTE | 2016-12-25 07:04 | DIAGNOSTIC IMAGING REPORT ---
CHEST ONE VIEW PORTABLE CLINICAL HISTORY: Hypoxia. Cough. COMPARISON STUDY: Chest radiograph December 23, 2016. FINDINGS: There is no pneumothorax. Dense right upper lobe consolidation has progressed since chest radiograph of December 23, 2016. Left lung is clear. Cardiomegaly is unchanged. There is no evidence of pulmonary edema. IMPRESSION: Progression of extensive right upper lobe consolidation which favors pneumonia. Post treatment radiographs to ensure resolution are recommended. Electronically signed by: Vaughn Frost M.D. 12/25/2016 7:03 AM Dictated Date/Time: 12/25/2016 7:02 AM
[2016-12-25] MEDS: IPRATROPIUM BROMIDE/ALBUTEROL respimat INH INH SCH ×3 (08:17→20:51)
[2016-12-25] MEDS: ENALAPRIL MALEATE 10 MG TAB PO SCH ×2 (08:18→20:53)
[2016-12-25] MEDS: POTASSIUM CHLORIDE 10 MEQ TABCR PO SCH (08:18)
[2016-12-25] MEDS: COLESEVELAM 625 MG TAB PO SCH ×2 (08:18→20:53)
[2016-12-25 09:02] LABS: HEMATOCRIT 37.5 % (37-47); MEAN CELL VOLUME 89.1 fL (80-100); MEAN CORPUSCULAR HGB CONC 32.5 g/dl (32-36); MEAN PLATELET VOLUME 8.5 fL (7.4-10.4); PLATELET COUNT 272 K/uL (130-400); RED BLOOD COUNT 4.21 M/uL (4.2-5.4); WHITE BLOOD COUNT 10.82 K/uL (4.8-10.8)
[2016-12-25 09:29] LABS: BUN/CREATININE RATIO 7.2 (10-20); CALCIUM 9.3 mg/dl (8.5-10.1); CREATININE 0.85 mg/dl (0.60-1.20); POTASSIUM 3.4 mmol/L (3.5-5.1)
[2016-12-25] MEDS ORDERED: METOPROLOL TARTRATE 1 MG/ML VIAL IV PRN (09:30)
[2016-12-25] MEDS: LEVOFLOXACIN / D5W 750 MG in PREMIXED IN D5W 150 ML IV SCH (16:02)
[2016-12-25] MEDS ORDERED: HYDROCHLOROTHIAZIDE 25 MG TAB PO ONE (16:41)
--- NOTE | 2016-12-25 16:45 | Progress Note ---
Medicine Progress Note Date & Time of Visit: Dec 25, 2016 at 16:33. Subjective Pt was seen and examined Lying in bed with no distress with son and present Pt said that her breathing feels better this morning She said that she had a rough night last night because she was having a hard time to breath Denies any chest pain, palpitation, fever, chills and weakness Objective Last 8 Hrs Date Time Temp Pulse Resp B/P (MAP) Pulse Ox O2 Delivery O2 Flow Rate FiO2 12/25/16 15:57 99 20 95 Nasal Cannula 2.0 12/25/16 15:22 37.0 90 20 153/92 (112) 98 Nasal Cannula 3.0 12/25/16 12:00 Nasal Cannula 2.0 12/25/16 11:28 37.1 97 22 146/93 (110) 96 Nasal Cannula 3.0 12/25/16 11:12 94 20 95 Nasal Cannula 3.0 12/25/16 10:30 151/83 (105) Physical Exam: General- No acute distress Head- atraumatic Eyes- PERRL, EOMI ENT- oropharynx clear Neck- supple, no JVD Lungs- Poor air entry, no wheezing Heart- regular rhythm Abdomen- normal bowel sounds, soft Extremities- no calf tenderness Neuro- alert, oriented x 3; PERRL, EOMI Skin- warm & dry Laboratory Results: Last 24 Hours Test 12/25/16 04:59 12/25/16 08:46 Pro-B-Type Natriuretic Peptide 1060 pg/ml White Blood Count 10.82 K/uL Red Blood Count 4.21 M/uL Hemoglobin 12.2 g/dL Hematocrit 37.5 % Mean Corpuscular Volume 89.1 fL Mean Corpuscular Hemoglobin 29.0 pg Mean Corpuscular Hemoglobin Concent 32.5 g/dl RDW Standard Deviation 49.6 fL RDW Coefficient of Variation 15.3 % Platelet Count 272 K/uL Mean Platelet Volume 8.5 fL Sodium Level 137 mmol/L Potassium Level 3.4 mmol/L Chloride Level 102 mmol/L Carbon Dioxide Level 26 mmol/L Anion Gap 9.0 mmol/L Blood Urea Nitrogen 6 mg/dl Creatinine 0.85 mg/dl Est Creatinine Clear Calc Drug Dose 53.5 ml/min Estimated GFR () 74.5 Estimated GFR (Non- 64.3 BUN/Creatinine Ratio 7.2 Random Glucose 179 mg/dl Calcium Level 9.3 mg/dl Assessment & Plan Sepsis/Pneumonia Presented on admission with Leukocytosis, Tachycardia, fever, Hypoxia CXR showed right upper lobe consolidation consistent with pneumonia Repeat cxr this morning showed Progression of extensive right upper lobe consolidation which favors pneumonia. Stress dose steroids and IV Azactam in ED Blood no growth urine cx growth Ecoli Continue levaquin 750 mg daily WBC trending down talked to and Son for about 10- 15 minutes, I reviewed with them her CXR and her urine cx I answered all questions Monitor in Tele UTI UA positive for UTI Urine cx grew EColi On Levaquin for pneumonia Continue levaquin Hypokalemia K3.4 On Potassium supplement Monitor BMP COPD No signs of exacerbation saturated well on RA DuoNeb QID Continue home inhalers On chronic prednisone for PMR Polymyalgia rheumatica: On prednisone 12mg daily started by PCP Planning to see rheumatology as outpatient No acute issues HTN: BP elevated Resume HCTZ Will add lopressor prn DVT Px: Lovenox SQ Code Status Full code Current Inpatient Medications: Current Inpatient Medications Medications (Trade) Dose Ordered Sig/Amos Route Start Time Stop Time Status Last Admin Dose Admin Enoxaparin Sodium (Lovenox Inj) 40 mg Q24H SC 12/23/16 21:00 01/22/17 20:59 12/24/16 20:06 40 MG Acetaminophen (Tylenol Tab) 650 mg Q4H PRN PO 12/23/16 15:45 01/22/17 15:44 12/24/16 20:08 650 MG Ondansetron HCl (Zofran Inj) 4 mg Q6H PRN IV 12/23/16 15:45 01/22/17 15:44 Levofloxacin 750 mg/Prmx 150 ml @ 100 mls/hr Q24H IV 12/24/16 16:00 12/30/16 23:59 12/25/16 16:02 100 MLS/HR Enalapril Maleate (Vasotec Tab) 10 mg BID PO 12/23/16 21:00 01/22/17 20:59 12/25/16 08:18 10 MG Fluticasone Propionate (Flonase Nasal [place]) 2 sprays HS GREGORIO 12/23/16 21:00 01/22/17 20:59 12/24/16 20:04 2 SPRAYS Latanoprost (Xalatan Oph Soln) 1 drops HS OPB 12/23/16 21:00 01/22/17 20:59 12/24/16 20:05 1 DROPS Montelukast Sodium (Singulair Tab) 10 mg HS PO 12/23/16 21:00 01/22/17 20:59 12/24/16 20:05 10 MG Potassium Chloride (Klor-Con M10) 10 meq QAM PO 12/24/16 09:00 01/23/17 08:59 12/25/16 08:18 10 MEQ Prednisone (PredniSONE TAB) 10 mg DAILY PO 12/24/16 09:00 01/23/17 08:59 12/25/16 06:42 10 MG Prednisone (PredniSONE TAB) 2 mg DAILY PO 12/24/16 09:00 01/23/17 08:59 12/25/16 06:42 2 MG Colesevelam HCl (Welchol) 625 mg BID@1000,2200 PO 12/23/16 22:00 01/22/17 21:59 12/25/16 08:18 625 MG Albuterol/ Ipratropium (Combivent Respimat Inh) 1 puffs QID INH 12/24/16 21:00 01/23/17 20:59 12/25/16 16:02 1 PUFFS Albuterol/ Ipratropium (Duoneb) 3 ml QIDR INH 12/25/16 08:00 01/24/17 07:59 12/25/16 15:35 3 ML Metoprolol Tartrate (Lopressor Iv) 2.5 mg Q4 PRN IV 12/25/16 09:30 01/24/17 09:29
[2016-12-25] MEDS: FLUTICASONE PROPIONATE NA SPR 16 GM BTL NAE SCH (20:52)
[2016-12-25] MEDS: MONTELUKAST SOD 10 MG TAB PO SCH (20:53)
[2016-12-25] MEDS: ENOXAPARIN 40 MG/0.4 ML SYR SC SCH (20:54)
[2016-12-25] MEDS: LATANOPROST 0.005% OP SOLN 2.5 ML BTL OPB SCH (20:54)
[2016-12-26] VITALS (11 sets, daily range): BP systolic 128–171; BP diastolic 76–97; PULSE 87–111; TEMP 36.4–37.2; O2SAT 90–96
[2016-12-26] MEDS: ALBUT/IPRATROP 3MG/0.5MG NEB 3 ML VIAL INH SCH ×3 (00:34→11:09)
[2016-12-26 07:26] LABS: HEMATOCRIT 37.7 % (37-47); MEAN CELL VOLUME 87.5 fL (80-100); MEAN CORPUSCULAR HEMOGLOBIN 27.8 pg (25-34); MEAN CORPUSCULAR HGB CONC 31.8 g/dl (32-36); MEAN PLATELET VOLUME 8.3 fL (7.4-10.4); PLATELET COUNT 318 K/uL (130-400); RED BLOOD COUNT 4.31 M/uL (4.2-5.4); WHITE BLOOD COUNT 10.69 K/uL (4.8-10.8)
[2016-12-26] MEDS: ENALAPRIL MALEATE 10 MG TAB PO SCH ×2 (07:39→20:51)
[2016-12-26] MEDS: IPRATROPIUM BROMIDE/ALBUTEROL respimat INH INH SCH (07:40)
[2016-12-26] MEDS: HYDROCHLOROTHIAZIDE 25 MG TAB PO SCH (07:40)
[2016-12-26] MEDS: POTASSIUM CHLORIDE 10 MEQ TABCR PO SCH (07:40)
[2016-12-26 07:59] LABS: BUN/CREATININE RATIO 9.7 (10-20); CALCIUM 9.5 mg/dl (8.5-10.1); CREATININE 0.73 mg/dl (0.60-1.20); POTASSIUM 3.2 mmol/L (3.5-5.1)
[2016-12-26] MEDS ORDERED: GUAIFENESIN 200 MG TAB PO PRN (10:00)
[2016-12-26] MEDS ORDERED: POTASSIUM CHLORIDE 20 MEQ TABCR PO ONE (10:00)
[2016-12-26] MEDS: COLESEVELAM 625 MG TAB PO SCH ×2 (10:12→20:50)
--- NOTE | 2016-12-26 10:38 | Progress Note ---
Medicine Progress Note Date & Time of Visit: Dec 26, 2016 at 10:30. Subjective Pt was seen and examined Lying in bed with no acute distress Pt said that she feels slightly better Denies any fever or chills last night she denies any chest pain, palpitation, dizziness Objective Last 8 Hrs Date Time Temp Pulse Resp B/P (MAP) Pulse Ox O2 Delivery O2 Flow Rate FiO2 12/26/16 08:00 Nasal Cannula 2.0 12/26/16 07:23 37.2 102 20 171/97 (121) 92 2.0 12/26/16 07:15 102 20 93 Nasal Cannula 2.0 12/26/16 04:00 Nasal Cannula 2.0 12/26/16 03:58 37.0 105 22 165/76 (105) 94 Nasal Cannula 2.0 12/26/16 03:58 120 171/93 Physical Exam: General- No acute distress Head- atraumatic Eyes- PERRL, EOMI ENT- oropharynx clear Neck- supple, no JVD Lungs- Decrease BS in the L side, no wheezing Heart- tachycardia Abdomen- normal bowel sounds, soft Extremities- no calf tenderness Neuro- alert, oriented x 3; PERRL, EOMI Skin- warm & dry Laboratory Results: Last 24 Hours Test 12/26/16 06:50 White Blood Count 10.69 K/uL Red Blood Count 4.31 M/uL Hemoglobin 12.0 g/dL Hematocrit 37.7 % Mean Corpuscular Volume 87.5 fL Mean Corpuscular Hemoglobin 27.8 pg Mean Corpuscular Hemoglobin Concent 31.8 g/dl RDW Standard Deviation 48.3 fL RDW Coefficient of Variation 15.0 % Platelet Count 318 K/uL Mean Platelet Volume 8.3 fL Sodium Level 134 mmol/L Potassium Level 3.2 mmol/L Chloride Level 94 mmol/L Carbon Dioxide Level 32 mmol/L Anion Gap 8.0 mmol/L Blood Urea Nitrogen 7 mg/dl Creatinine 0.73 mg/dl Est Creatinine Clear Calc Drug Dose 61.8 ml/min Estimated GFR () 89.5 Estimated GFR (Non- 77.2 BUN/Creatinine Ratio 9.7 Random Glucose 99 mg/dl Calcium Level 9.5 mg/dl Assessment & Plan Sepsis/Pneumonia Presented on admission with Leukocytosis, Tachycardia, fever, Hypoxia CXR showed right upper lobe consolidation consistent with pneumonia Repeat cxr this morning showed Progression of extensive right upper lobe consolidation which favors pneumonia. Stress dose steroids and IV Azactam in ED Blood no growth urine cx growth Ecoli Continue levaquin 750 mg daily WBC trending down to normal talked Son for about 10- 15 minutes yesterday, I reviewed with them her CXR and her urine cx Talked to Son again today and provided with update Monitor in Tele UTI UA positive for UTI Urine cx grew EColi On Levaquin for pneumonia Continue levaquin Hypokalemia K3.2 K replaced On Potassium supplement Monitor BMP COPD Exacerbation due to Pneumonia saturated well on RA on DuoNeb QID, but will change Albuterol inh to levalbuterol due to tahycardia Add prednisone 20mg On chronic prednisone for PMR Polymyalgia rheumatica: On prednisone 12mg daily started by PCP Planning to see rheumatology as outpatient No acute issues HTN: BP elevated Resumed HCTZ Will add lopressor prn continue monitor BP DVT Px: Lovenox SQ Code Status Full code Current Inpatient Medications: Current Inpatient Medications Medications (Trade) Dose Ordered Sig/Amos Route Start Time Stop Time Status Last Admin Dose Admin Enoxaparin Sodium (Lovenox Inj) 40 mg Q24H SC 12/23/16 21:00 01/22/17 20:59 12/25/16 20:54 40 MG Acetaminophen (Tylenol Tab) 650 mg Q4H PRN PO 12/23/16 15:45 01/22/17 15:44 12/24/16 20:08 650 MG Ondansetron HCl (Zofran Inj) 4 mg Q6H PRN IV 12/23/16 15:45 01/22/17 15:44 Levofloxacin 750 mg/Prmx 150 ml @ 100 mls/hr Q24H IV 12/24/16 16:00 12/30/16 23:59 12/25/16 16:02 100 MLS/HR Enalapril Maleate (Vasotec Tab) 10 mg BID PO 12/23/16 21:00 01/22/17 20:59 12/26/16 07:39 10 MG Fluticasone Propionate (Flonase Nasal [place]) 2 sprays HS GREGORIO 12/23/16 21:00 01/22/17 20:59 12/25/16 20:52 2 SPRAYS Latanoprost (Xalatan Oph Soln) 1 drops HS OPB 12/23/16 21:00 01/22/17 20:59 12/25/16 20:54 1 DROPS Montelukast Sodium (Singulair Tab) 10 mg HS PO 12/23/16 21:00 01/22/17 20:59 12/25/16 20:53 10 MG Potassium Chloride (Klor-Con M10) 10 meq QAM PO 12/24/16 09:00 01/23/17 08:59 12/26/16 07:40 10 MEQ Prednisone (PredniSONE TAB) 2 mg DAILY PO 12/24/16 09:00 01/23/17 08:59 12/26/16 07:40 2 MG Colesevelam HCl (Welchol) 625 mg BID@1000,2200 PO 12/23/16 22:00 01/22/17 21:59 12/26/16 10:12 625 MG Albuterol/ Ipratropium (Combivent Respimat Inh) 1 puffs QID INH 12/24/16 21:00 01/23/17 20:59 12/26/16 07:40 1 PUFFS Albuterol/ Ipratropium (Duoneb) 3 ml QIDR INH 12/25/16 08:00 01/24/17 07:59 12/26/16 07:15 3 ML Metoprolol Tartrate (Lopressor Iv) 2.5 mg Q4 PRN IV 12/25/16 09:30 01/24/17 09:29 12/26/16 03:58 2.5 MG Hydrochlorothiazide (Hydrochlorothiazide Tab) 25 mg DAILY PO 12/26/16 09:00 01/25/17 08:59 12/26/16 07:40 25 MG Prednisone (PredniSONE TAB) 20 mg DAILY PO 12/27/16 09:00 01/26/17 08:59 Guaifenesin (Organidin Nr Tab) 200 mg Q6 PRN PO 12/26/16 10:00 01/25/17 09:59
[2016-12-26] MEDS ORDERED: LEVALBUTEROL/IPRATROPIUM NEB INH PRN (11:30)
[2016-12-26] MEDS ORDERED: IPRATROPIUM BROMIDE NEB SOLN 0.02% 2.5 ML VIAL INH PRN (11:45)
[2016-12-26] MEDS ORDERED: LEVALBUTEROL 0.63MG/3 ML NEB INH PRN (11:45)
[2016-12-26] MEDS: LEVALBUTEROL 0.63MG/3 ML NEB INH SCH ×2 (14:20→19:34)
[2016-12-26] MEDS: IPRATROPIUM BROMIDE NEB SOLN 0.02% 2.5 ML VIAL INH SCH ×2 (14:20→19:34)
[2016-12-26] MEDS ORDERED: LEVALBUTEROL/IPRATROPIUM NEB INH SCH (15:00)
[2016-12-26] MEDS: BOOST BREEZE NUTRITION DRINK 1 BOX PO SCH (15:38)
[2016-12-26] MEDS: LEVOFLOXACIN / D5W 750 MG in PREMIXED IN D5W 150 ML IV SCH (15:38)
[2016-12-26] MEDS: FLUTICASONE PROPIONATE NA SPR 16 GM BTL NAE SCH (20:50)
[2016-12-26] MEDS: LATANOPROST 0.005% OP SOLN 2.5 ML BTL OPB SCH (20:50)
[2016-12-26] MEDS: ENOXAPARIN 40 MG/0.4 ML SYR SC SCH (20:51)
[2016-12-26] MEDS: MONTELUKAST SOD 10 MG TAB PO SCH (20:51)
[2016-12-27] VITALS (7 sets, daily range): BP systolic 137–152; BP diastolic 74–81; PULSE 81–106; TEMP 36.3–36.4; O2SAT 91–96
[2016-12-27] MEDS: IPRATROPIUM BROMIDE NEB SOLN 0.02% 2.5 ML VIAL INH SCH ×3 (01:35→14:35)
[2016-12-27] MEDS: LEVALBUTEROL 0.63MG/3 ML NEB INH SCH ×3 (01:35→14:35)
[2016-12-27 06:24] LABS: HEMATOCRIT 36.2 % (37-47); MEAN CELL VOLUME 86.8 fL (80-100); MEAN CORPUSCULAR HGB CONC 33.4 g/dl (32-36); MEAN PLATELET VOLUME 8.1 fL (7.4-10.4); PLATELET COUNT 306 K/uL (130-400); RED BLOOD COUNT 4.17 M/uL (4.2-5.4); WHITE BLOOD COUNT 9.11 K/uL (4.8-10.8)
[2016-12-27 06:55] LABS: BUN/CREATININE RATIO 17.3 (10-20); CALCIUM 9.4 mg/dl (8.5-10.1); CREATININE 0.62 mg/dl (0.60-1.20); POTASSIUM 3.2 mmol/L (3.5-5.1)
[2016-12-27] MEDS: BOOST BREEZE NUTRITION DRINK 1 BOX PO SCH ×3 (07:30→11:30)
[2016-12-27] MEDS ORDERED: POTASSIUM CHLORIDE 10 MEQ TABCR PO ONE (09:00)
[2016-12-27] MEDS: ENALAPRIL MALEATE 10 MG TAB PO SCH (09:23)
[2016-12-27] MEDS: HYDROCHLOROTHIAZIDE 25 MG TAB PO SCH (09:24)
[2016-12-27] MEDS: POTASSIUM CHLORIDE 10 MEQ TABCR PO SCH (09:24)
[2016-12-27] MEDS: COLESEVELAM 625 MG TAB PO SCH (09:26)
[2016-12-27] MEDS ORDERED: LEVOFLOXACIN 750 MG TAB PO SCH (13:54)
--- NOTE | 2016-12-27 15:36 | Progress Note ---
Medicine Progress Note Date & Time of Visit: Dec 27, 2016 at 15:23. Subjective Pt was seen and examined Lying in bed comfortable with present at bedside Pt said that she feels better today She said that her breathing feels better She continues some dyspnea with ambulation she denies any chest chest pain, palpitation, dizziness, fever, chills Objective Last 8 Hrs Date Time Temp Pulse Resp B/P (MAP) Pulse Ox O2 Delivery O2 Flow Rate FiO2 12/27/16 14:35 106 18 93 Nasal Cannula 2.0 12/27/16 12:00 Room Air 91 12/27/16 11:02 36.4 89 18 142/81 (101) 91 12/27/16 08:00 Nasal Cannula 2.0 12/27/16 07:39 36.3 87 20 152/81 (104) 93 Nasal Cannula 2.0 Physical Exam: General- No acute distress Head- atraumatic Eyes- PERRL, EOMI ENT- oropharynx clear Neck- supple, no JVD Lungs- Decrease BS in the L side, no wheezing Heart- tachycardia Abdomen- normal bowel sounds, soft Extremities- no calf tenderness Neuro- alert, oriented x 3; PERRL, EOMI Skin- warm & dry Laboratory Results: Last 24 Hours Test 12/27/16 06:13 White Blood Count 9.11 K/uL Red Blood Count 4.17 M/uL Hemoglobin 12.1 g/dL Hematocrit 36.2 % Mean Corpuscular Volume 86.8 fL Mean Corpuscular Hemoglobin 29.0 pg Mean Corpuscular Hemoglobin Concent 33.4 g/dl RDW Standard Deviation 48.2 fL RDW Coefficient of Variation 15.0 % Platelet Count 306 K/uL Mean Platelet Volume 8.1 fL Sodium Level 138 mmol/L Potassium Level 3.2 mmol/L Chloride Level 97 mmol/L Carbon Dioxide Level 31 mmol/L Anion Gap 10.0 mmol/L Blood Urea Nitrogen 11 mg/dl Creatinine 0.62 mg/dl Est Creatinine Clear Calc Drug Dose 71.8 ml/min Estimated GFR () 98.0 Estimated GFR (Non- 84.6 BUN/Creatinine Ratio 17.3 Random Glucose 102 mg/dl Calcium Level 9.4 mg/dl Assessment & Plan Sepsis/Pneumonia Presented on admission with Leukocytosis, Tachycardia, fever, Hypoxia CXR showed right upper lobe consolidation consistent with pneumonia Repeat cxr this morning showed Progression of extensive right upper lobe consolidation which favors pneumonia. Stress dose steroids and IV Azactam in ED Blood no growth urine cx growth Ecoli Levaquin changed to 750 mg PO daily WBC trending down to normal talked Son for about 10- 15 minutes yesterday, I reviewed with them her CXR and her urine cx Talked to Son again today and provided with update over the phone Talked to today Continue supplement oxygen UTI UA positive for UTI Urine cx grew EColi On Levaquin for pneumonia Continue levaquin Hypokalemia K3.2 K replaced On Potassium supplement, will increase to 20meq daily Monitor BMP COPD Exacerbation due to Pneumonia on DuoNeb QID, but will change Albuterol inh to levalbuterol due to tahycardia Will continue prednisone 20mg for 3 more days Continue oxygen supplement On chronic prednisone for PMR Will need a nocturnal pulse oximetry and 2 step exercise before discharge from rehab Polymyalgia rheumatica: On prednisone 12mg daily started by PCP Planning to see rheumatology as outpatient No acute issues HTN: BP elevated Resumed HCTZ Will add lopressor prn continue monitor BP DVT Px: Lovenox SQ Code Status Full code Disposition Discharge to [facility] today Follow up with your Primary care Physician once your discharge from rehab Continue PT/OT Fall precaution Continue 2 L oxygen supplement for now to keep oxygen saturation above 93% Will need a nocturnal pulse oximetry and 2 step exercise before discharge from rehab Current Inpatient Medications: Current Inpatient Medications Medications (Trade) Dose Ordered Sig/Amos Route Start Time Stop Time Status Last Admin Dose Admin Enoxaparin Sodium (Lovenox Inj) 40 mg Q24H SC 12/23/16 21:00 01/22/17 20:59 12/26/16 20:51 40 MG Acetaminophen (Tylenol Tab) 650 mg Q4H PRN PO 12/23/16 15:45 01/22/17 15:44 12/24/16 20:08 650 MG Ondansetron HCl (Zofran Inj) 4 mg Q6H PRN IV 12/23/16 15:45 01/22/17 15:44 Enalapril Maleate (Vasotec Tab) 10 mg BID PO 12/23/16 21:00 01/22/17 20:59 12/27/16 09:23 10 MG Fluticasone Propionate (Flonase Nasal [place]) 2 sprays HS GREGORIO 12/23/16 21:00 01/22/17 20:59 12/26/16 20:50 2 SPRAYS Latanoprost (Xalatan Oph Soln) 1 drops HS OPB 12/23/16 21:00 01/22/17 20:59 12/26/16 20:50 1 DROPS Montelukast Sodium (Singulair Tab) 10 mg HS PO 12/23/16 21:00 01/22/17 20:59 12/26/16 20:51 10 MG Potassium Chloride (Klor-Con M10) 10 meq QAM PO 12/24/16 09:00 01/23/17 08:59 12/27/16 09:24 10 MEQ Prednisone (PredniSONE TAB) 2 mg DAILY PO 12/24/16 09:00 01/23/17 08:59 12/27/16 09:00 2 MG Colesevelam HCl (Welchol) 625 mg BID@1000,2200 PO 12/23/16 22:00 01/22/17 21:59 12/27/16 09:26 625 MG Metoprolol Tartrate (Lopressor Iv) 2.5 mg Q4 PRN IV 12/25/16 09:30 01/24/17 09:29 12/26/16 03:58 2.5 MG Hydrochlorothiazide (Hydrochlorothiazide Tab) 25 mg DAILY PO 12/26/16 09:00 01/25/17 08:59 12/27/16 09:24 25 MG Prednisone (PredniSONE TAB) 20 mg DAILY PO 12/27/16 09:00 01/26/17 08:59 12/27/16 09:23 20 MG Guaifenesin (Organidin Nr Tab) 200 mg Q6 PRN PO 12/26/16 10:00 01/25/17 09:59 12/27/16 09:46 200 MG Ipratropium [place] (Atrovent 0.02% 0.5MG/2.5ML Neb) 0.5 mg Q6R INH 12/26/16 15:00 01/25/17 14:59 12/27/16 14:35 0.5 MG Levalbuterol (Xopenex 0.63 Mg/ 3 Ml Neb) 0.63 mg Q6R INH 12/26/16 15:00 01/25/17 14:59 12/27/16 14:35 0.63 MG Ipratropium [place] (Atrovent 0.02% 0.5MG/2.5ML Neb) 0.5 mg Q4R PRN INH 12/26/16 11:45 01/25/17 11:44 Levalbuterol (Xopenex 0.63 Mg/ 3 Ml Neb) 0.63 mg Q4R PRN INH 12/26/16 11:45 01/25/17 11:44 Enteral Nutritional Formula (Boost Breeze Nutritional Drink) 1 box TIDM PO 12/26/16 16:45 01/25/17 16:44 12/26/16 15:38 1 BOX Levofloxacin (Levaquin Tab) 750 mg DAILY@11 PO 12/27/16 13:54 12/30/16 13:53
[2016-12-27] MEDS ORDERED: ATRINS INH (15:51)
[2016-12-27] MEDS ORDERED: GUAI1TAB68 PO (15:51)
[2016-12-27] MEDS ORDERED: PRED-301 PO (15:51)
[2016-12-27] MEDS ORDERED: Boost Nutritional Drink PO (15:51)
[2016-12-27] MEDS ORDERED: XPNINS INH (15:51)
[2016-12-27] MEDS ORDERED: POTA10CA28 PO (15:51)
[2016-12-27] MEDS ORDERED: LVQ750 PO ×2 (15:51→15:57)
--- NOTE | 2016-12-27 16:06 | Discharge Instructions ---
Discharge Instructions Date of Service Dec 27, 2016. Admission Reason for Admission: COUGH Discharge Discharge Diagnosis / Problem: Sepsis/Pneumonia/COPD exacerbation/ UTI/ Hypokalemia/HTN Discharge Goals Goal(s): Decrease discomfort, Improve function, Improve disease control Activity Recommendations Activity Limitations: resume your previous activity (as tolerated) . Instructions / Follow-Up Instructions / Follow-Up Discharge to [facility] Follow up with your Primary care Physician once your discharge from rehab Continue PT/OT Fall precaution Continue Incentive spirometry Check BMP within 1 week to monitor her Potassium Continue 2 L oxygen supplement for now to keep oxygen saturation above 93% Will need a nocturnal pulse oximetry and 2 step exercise before discharge from rehab Complete the course of antibiotic with Levaquin Continue Prednisone 20mg for 3 days, then change to 12mg prednisone for her Polymyalgia rheumatica. Current Hospital Diet Patient's current hospital diet: AHA Diet (Heart Healthy) Discharge Diet Recommended Diet: AHA Diet (Heart Healthy) Pending Studies Studies pending at discharge: no Medical Emergencies . Who to Call and When: Medical Emergencies: If at any time you feel your situation is an emergency, please call 911 immediately. . Non-Emergent Contact Non-Emergency issues call your: Primary Care Provider Call Non-Emergent contact if: you have a fever, you have any medication questions . . "Provider Documentation" section prepared by Ascencion Gorman. . VTE Core Measure Inpt VTE Proph given/why not?: Enoxaparin (Lovenox)SQ
--- NOTE | 2016-12-29 15:37 | Discharge Summary ---
Discharge Summary Date of Service Dec 29, 2016. Discharge Summary Admission Date: Dec 23, 2016 at 15:45 Discharge Date: Dec 27, 2016 Discharge Disposition: Rehab Principal Diagnosis: Sepsis Secondary Diagnoses/Problems: Pneumonia COPD exacerbation UTI Hypokalemia HTN Polymyalgia rheumatica Procedures: CHEST ONE VIEW PORTABLE CLINICAL HISTORY: Sepsis COMPARISON STUDY: 04/07/2016 FINDINGS: The heart is enlarged. There is right upper lobe airspace consolidation consistent with pneumonia. Films subsequent to treatment are recommended in follow-up. There is no failure. There are bibasal atelectatic changes.[ IMPRESSION: Right upper lobe consolidation consistent with pneumonia. Films subsequent to treatment are recommended in follow-up Electronically signed by: German Askew M.D. 12/23/2016 1:39 PM Dictated Date/Time: 12/23/2016 1:39 PM CHEST ONE VIEW PORTABLE CLINICAL HISTORY: Hypoxia. Cough. COMPARISON STUDY: Chest radiograph December 23, 2016. FINDINGS: There is no pneumothorax. Dense right upper lobe consolidation has progressed since chest radiograph of December 23, 2016. Left lung is clear. Cardiomegaly is unchanged. There is no evidence of pulmonary edema. IMPRESSION: Progression of extensive right upper lobe consolidation which favors pneumonia. Post treatment radiographs to ensure resolution are recommended. Electronically signed by: Vaughn Frost M.D. 12/25/2016 7:03 AM Dictated Date/Time: 12/25/2016 7:02 AM Medication Reconciliation New Medications: Guaifenesin (Organ-I Nr) 200 Mg Tab 200 MG PO Q8 PRN for cough for 5 Days, #15 TAB Ipratropium Wales (Ipratropium Wales) 0.5 Mg/2.5 Ml Nebu 0.5 MG INH Q6R for 7 Days Levalbuterol (Levalbuterol HCl) 0.63 Mg/3 Ml Nebu 0.63 MG INH Q6R for 7 Days Levofloxacin (Levofloxacin) 750 Mg Tab 750 MG PO DAILY for 3 Days, #3 TAB [Boost Nutritional Drink] () 1 BOX LIQD 1 BOX PO TIDM for 7 Days Changed Medications: Potassium Chloride (Micro-K Ext Rel) 10 Meq Cap 20 MEQ PO QAM for 15 Days, #30 CAP (Changed from: 10 MEQ) Prednisone (Prednisone) 5 Mg Tab 20 MG PO UD for 5 Days, TAB (Changed from: 10 MG; DAILY) Prednisone 20mg for 3 days, on day 4 change to 12 mg, then continue prenisone 12 mg daily for PMR Continued Medications: Albuterol Hfa (Ventolin Hfa) 200 Puffs/62807 Mcg Aers 2-4 PUFFS INH UD PRN for SOB/Wheezing, #1 INHALER Calcium Carbonate-Vitamin D W/ (Caltrate 600 Plus) 1 Tab Tab 1 TAB PO BID, TAB Cholecalciferol (Vitamin D 1000 Unit) 1,000 Unit Cap 5000 INTER.UNIT PO QAM, CAP Colesevelam Hcl (Welchol) 625 Mg Tab 625 MG PO BID, TAB Enalapril Maleate (Vasotec) 10 Mg Tab 10 MG PO BID, TAB Fluticasone Propionate (Nasal) (Flonase Allergy Relief) 50 Mcg/Act Spr 2 SPRAYS GREGORIO HS Hydrochlorothiazide (Hctz) 25 Mg Tab 25 MG PO DAILY, TAB Latanoprost (Xalatan 0.005% Oph Lizz) 0.005 % Lizz 1 DROP OPB HS Montelukast Sodium (Montelukast Sodium) 10 Mg Tab 1 TAB PO HS for 90 Days, TAB 3 Refills Multivitamin (Multivitamin) Tab 1 TAB PO QAM, TAB Prednisone (Prednisone) 1 Mg Tab 2 MG PO DAILY, TAB Tiotropium [place] (Spiriva Handihaler) 30 Puff/540 Mcg Aerp 1 CAP INH DAILY, INHALER Admission Information HPI (per Admitting provider): Patient is a 81 yr female with PMH of COPD, Polymyalgia rheumatica, Rosacea, HTN , HLP and other problems presents with fever, cough and weakness since 3 days duration. CXR is consistent with pneumonia. Patient reports cough is dry, intermittent. Recently travelled to [place] and believes she could have encountered a sick friend. She reports generalized weakness and decreased appetite since 2 days. Denies any SOB, chest pain, nausea, vomiting, diarrhea, abdominal pain, dizziness. States having urinary urgency and had UTIs in the past. Offers no other relevant history. Physical Exam (per Admitting): General Appearance: WD/WN, no apparent distress Head: normocephalic, atraumatic Eyes: normal inspection, PERRL, EOMI, sclerae normal ENT: normal ENT inspection, hearing grossly normal Neck: supple, trachea midline Respiratory/Chest: chest non-tender, lungs clear, no respiratory distress, no accessory muscle use, + decreased breath sounds Cardiovascular: regular rate, rhythm, no edema, no murmur, + tachycardia Abdomen/GI: normal bowel sounds, non tender, soft Back: normal inspection Extremities/Musculoskelatal: normal inspection, no pedal edema Neurologic/Psych: cake former II-XII nml as tested, no motor/sensory deficits, alert , normal mood/affect, oriented x 3 Skin: warm/dry, + pertinent finding (+Rosacea ) Hospital Course Sepsis/Pneumonia Presented on admission with Leukocytosis, Tachycardia, fever, Hypoxia CXR showed right upper lobe consolidation consistent with pneumonia Repeat cxr this morning showed Progression of extensive right upper lobe consolidation which favors pneumonia. Stress dose steroids and IV Azactam in ED Blood no growth urine cx growth Ecoli Levaquin changed to 750 mg PO daily WBC trending down to normal talked Son for about 10- 15 minutes yesterday, I reviewed with them her CXR and her urine cx Talked to Son again today and provided with update over the phone Talked to today Continue supplement oxygen UTI UA positive for UTI Urine cx grew EColi On Levaquin for pneumonia Continue levaquin Hypokalemia K3.2 K replaced On Potassium supplement, will increase to 20meq daily Monitor BMP COPD Exacerbation due to Pneumonia on DuoNeb QID, but will change Albuterol inh to levalbuterol due to tahycardia Will continue prednisone 20mg for 3 more days Continue oxygen supplement On chronic prednisone for PMR Will need a nocturnal pulse oximetry and 2 step exercise before discharge from rehab Polymyalgia rheumatica: On prednisone 12mg daily started by PCP Planning to see rheumatology as outpatient No acute issues HTN: BP elevated Resumed HCTZ Will add lopressor prn continue monitor BP DVT Px: Lovenox SQ Code Status Full code Disposition Discharge to [facility] Follow up with your Primary care Physician once your discharge from rehab Continue PT/OT Fall precaution Continue 2 L oxygen supplement for now to keep oxygen saturation above 93% Will need a nocturnal pulse oximetry and 2 step exercise before discharge from rehab Total time spent on discharge = 35 minutes This includes examination of the patient, discharge planning, medication reconciliation, and communication with other providers. Discharge Instructions Discharge Instructions Date of Service Dec 27, 2016. Admission Reason for Admission: COUGH Discharge Discharge Diagnosis / Problem: Sepsis/Pneumonia/COPD exacerbation/ UTI/ Hypokalemia/HTN Discharge Goals Goal(s): Decrease discomfort, Improve function, Improve disease control Activity Recommendations Activity Limitations: resume your previous activity (as tolerated) . Instructions / Follow-Up Instructions / Follow-Up Discharge to [facility] today Follow up with your Primary care Physician once your discharge from rehab Continue PT/OT Fall precaution Continue Incentive spirometry Check BMP within 1 week to monitor her Potassium Continue 2 L oxygen supplement for now to keep oxygen saturation above 93% Will need a nocturnal pulse oximetry and 2 step exercise before discharge from rehab Complete the course of antibiotic with Levaquin Continue Prednisone 20mg for 3 days, then change to 12mg prednisone for her Polymyalgia rheumatica. Current Hospital Diet Patient's current hospital diet: AHA Diet (Heart Healthy) Discharge Diet Recommended Diet: AHA Diet (Heart Healthy) Pending Studies Studies pending at discharge: no Medical Emergencies . Who to Call and When: Medical Emergencies: If at any time you feel your situation is an emergency, please call 911 immediately. . Non-Emergent Contact Non-Emergency issues call your: Primary Care Provider Call Non-Emergent contact if: you have a fever, you have any medication questions . . "Provider Documentation" section prepared by Ascencion Gorman. . VTE Core Measure Inpt VTE Proph given/why not?: Enoxaparin (Lovenox)SQ Additional Copies To [facility] D[facility]
== END 2016-12-27 16:30 | DRG 871 ==
LOC: EDBD 13:03 → C.EDB 13:04 → C.2T 15:45 → ENRESERV 16:04
PROVIDERS: ADMIT Internal Medicine; ATTEND Internal Medicine
DX: A41.9 Sepsis, unspecified organism (principal); J18.9 Pneumonia, unspecified organism; N39.0 Urinary tract infection, site not specified; J44.0 Chronic obstructive pulmonary disease with (acute) lower respiratory infection; J44.1 Chronic obstructive pulmonary disease with (acute) exacerbation; E87.6 Hypokalemia; E86.0 Dehydration; B96.20 Unspecified Escherichia coli [E. coli] as the cause of diseases classified elsewhere; M17.11 Unilateral primary osteoarthritis, right knee; E78.5 Hyperlipidemia, unspecified; M35.3 Polymyalgia rheumatica; Z79.899 Other long term (current) drug therapy; Z79.52 Long term (current) use of systemic steroids; Z79.51 Long term (current) use of inhaled steroids

== ENCOUNTER 2017-05-20 11:04 | Emergency (ER) | payer OTHER ==
[~2017-05-20] VITALS: Ht 162.6 cm; Wt 77.0 kg
[~2017-05-20 11:04] MED LIST changes: -ALBU1AER9 INH; +ATRINS INH; +Boost Nutritional Drink PO; +FLUT0.15 NAE; -FLUTICASONE NASAL NAE; +GUAI1TAB68 PO; -HYDC25 PO; +HYDR25TA4 PO; +LVQ750 PO; +PRD/1 PO; +PRED-301 PO; -PRED10TA PO; +SPRIN/30 INH; -TIOTCAP INH; +VNTHFA/IN INH; +XPNINS INH
[2017-05-20 11:13] VITALS: Ht 162.6 cm; Wt 77.0 kg
[2017-05-20] MEDS ORDERED: PRD/1 PO (11:39)
[2017-05-20] MEDS ORDERED: POTA-65 PO (11:39)
[2017-05-20 11:49] VITALS: O2SAT 92
[2017-05-20] MEDS ORDERED: PLQ200 PO (12:09)
--- NOTE | 2017-05-20 12:12 | DIAGNOSTIC IMAGING REPORT ---
SINGLE VIEW CHEST CLINICAL HISTORY: Hypertension. FINDINGS: An AP, portable, upright chest radiograph is compared to study dated 01/26/2017. The examination is degraded by portable technique and patient rotation. The heart is enlarged and there is atherosclerotic calcification of the thoracic aorta. The pulmonary vasculature is noncongested. Linear opacities are present at both lung bases. No large pleural effusion or pneumothorax is seen. The skeletal structures are osteopenic. The bony thorax is grossly intact. IMPRESSION: 1. Cardiomegaly without radiographic evidence of congestive failure. 2. Linear opacities are present at both lung bases and likely represent atelectasis. Correlate clinically for evidence of superimposed pneumonia/aspiration pneumonitis. Electronically signed by: Curtis Nj M.D. 05/20/2017 12:10 PM Dictated Date/Time: 05/20/2017 12:09 PM
[2017-05-20 12:27] LABS: URINE APPEARANCE CLEAR (CLEAR); URINE BILIRUBIN NEG (NEG); URINE COLOR YELLOW; URINE EPITHELIAL CELL AUTO >30 /lpf (0-5); URINE NITRITE NEG (NEG); URINE SPECIFIC GRAVITY 1.016 (1.000-1.030); UROBILINOGEN NEG (NEG)
[2017-05-20 12:28] LABS: MANUAL MICROSCOPIC REQUIRED? NO; REVIEW REQ? NO
[2017-05-20 12:32] LABS: BASO % 0.3 %; BASO ABS # 0.05 K/uL (0-0.2); COMPLETE YES; EOS % 0.5 %; HEMATOCRIT 45.2 % (37-47); IG% 0.3 %; MEAN CELL VOLUME 86.8 fL (80-100); MEAN CORPUSCULAR HEMOGLOBIN 29.2 pg (25-34); MEAN CORPUSCULAR HGB CONC 33.6 g/dl (32-36); MEAN PLATELET VOLUME 8.9 fL (7.4-10.4); MONO % 3.8 %; NEUT % 91.1 %; PLATELET COUNT 298 K/uL (130-400); RED BLOOD COUNT 5.21 M/uL (4.2-5.4); WHITE BLOOD COUNT 15.11 K/uL (4.8-10.8)
[2017-05-20 12:49] LABS: ALT/SGPT 22 U/L (12-78); BLOOD UREA NITROGEN 10 mg/dl (7-18); BUN/CREATININE RATIO 11.1 (10-20); CALCIUM 10.1 mg/dl (8.5-10.1); CARBON DIOXIDE 31 mmol/L (21-32); CHLORIDE 98 mmol/L (98-107); CREATININE 0.85 mg/dl (0.60-1.20); GLUCOSE 104 mg/dl (70-99); INR 1.1 (0.9-1.1); PARTIAL THROMBOPLASTIN RATIO 1.1; POTASSIUM 3.6 mmol/L (3.5-5.1); PROTHROMBIN TIME (PATIENT) 11.4 SECONDS (9.0-12.0); SODIUM 136 mmol/L (136-145)
[2017-05-20 13:00] LABS: ALKALINE PHOSPHATASE 77 U/L (45-117); AST/SGOT 20 U/L (15-37); CKMB/CK RATIO 7.6 (0-3.0)
[2017-05-20] MEDS ORDERED: CEFTRIAXONE SOD INJ 1 GM ADDVIAL IV STA (13:15)
[2017-05-20] MEDS ORDERED: METOPROLOL SUCC 25MG EXT REL TAB PO STA (14:04)
[2017-05-20 14:38] VITALS: BP 165/107; PULSE 85; TEMP 37; O2SAT 94
[2017-05-20] MEDS ORDERED: METO25TA3 PO (15:30)
[2017-05-20] MEDS ORDERED: CEPH500C PO (15:30)
--- NOTE | 2017-05-20 19:09 | EMERGENCY ROOM VISIT NOTE ---
History Report prepared by [place]: Lucina Gorman Under the Supervision of: Dr. Lloyd Linder M.D. First contact with patient: 11:49 Chief Complaint: HYPERTENSION Stated Complaint: HIGH BLOOD PRESSURE History of Present Illness The patient is an 81 year old female who presents to the Emergency Room with complaints of an episode of hypertension starting 3 days ago. The patient states that she has been tracking her blood pressure for the past 3 days. She states that it is ranging from 122-185 over 75-100. She reports that she has been taking her hypertension medications and notes that she took them 3 hours ago this morning. The patient complains of loss of appetite. Her notes that she has been stressed because they are giving up their homestead home of 45 years. She notes that this has her anxious and stressed. Pt denies LOC, headache, fevers, chills, diaphoresis, visual changes, neck pain , chest pain, breathing difficulties, nausea, vomiting, abdominal pain, back pain, melena, hematochezia, urinary symptoms, numbness, weakness, lymphadenopathy, rash, being around anyone who is sick or other complaints. Source of History: patient, spouse/significant other Onset: 3 days ago Position: other (global) Quality: other (global) Timing: other (episode) Note: The patient complains of loss of appetite, being anxious, and being stressed. Review of Systems See HPI for pertinent positives and negatives. A total of ten systems were reviewed and were otherwise negative. Past Medical & Surgical Medical Problems: (1) Arthritis of right knee (2) COPD (chronic obstructive pulmonary disease) (3) Cough (4) Hypertension (5) PMR (polymyalgia rheumatica) Surgical Problems: (1) S/P hysterectomy (2) S/P knee replacement Family History Cancer Heart disease Hypertension Lung disease Stroke Social History Smoking Status: Never Smoker Drug Use: none Marital Status: Housing Status: lives with family Occupation Status: retired Current/Historical Medications Scheduled Calcium Carbonate-Vitamin D W/ (Caltrate 600 Plus), 1 TAB PO BID Cephalexin Monohydrate (Keflex), 500 MG PO QID Cholecalciferol (Vitamin D 1000 Unit), 5,000 INTER.UNIT PO QAM Colesevelam Hcl (Welchol), 625 MG PO BID Enalapril Maleate (Vasotec), 10 MG PO BID Fluticasone Propionate (Nasal) (Flonase Allergy Relief), 2 SPRAYS GREGORIO HS Hydrochlorothiazide (Hctz), 25 MG PO DAILY Hydroxychloroquine Sulfate (Hydroxychloroquine Sulfat), 200 MG PO DAILY Latanoprost (Xalatan 0.005% Oph Lizz), 1 DROP OPB HS Metoprolol Succ (Toprol Xl) (Toprol-Xl), 25 MG PO DAILY Montelukast Sodium (Montelukast Sodium), 1 TAB PO HS Multivitamin (Multivitamin), 1 TAB PO QAM Potassium Chloride (Potassium Chloride ER), 20 MEQ PO BID Prednisone (Prednisone), 6 MG PO UD Tiotropium Fieldon (Spiriva Handihaler), 1 CAP INH DAILY Scheduled PRN Albuterol Hfa (Ventolin Hfa), 2-4 PUFFS INH UD PRN for SOB/Wheezing Allergies Coded Allergies: Aspirin (Verified Allergy, Intermediate, HIVES, 05/20/17) Erythromycin (Verified Allergy, Intermediate, HIVES, N/V, 05/20/17) Nitrofurantoin (Verified Allergy, Intermediate, rash, 05/20/17) Sulfa Antibiotics (Verified Allergy, Intermediate, HIVES, 05/20/17) Amoxicillin (Verified Adverse Reaction, Mild, NAUSEA, 05/20/17) Ciprofloxacin (Verified Adverse Reaction, Mild, N/V, 05/20/17) Clavulanic Acid (Verified Adverse Reaction, Mild, VOMITING, 05/20/17) Codeine (Verified Adverse Reaction, Mild, N/V, 05/20/17) Morphine (Verified Adverse Reaction, Mild, VOMITING, 05/20/17) Physical Exam Vital Signs Date Time Temp Pulse Resp B/P (MAP) Pulse Ox O2 Delivery O2 Flow Rate FiO2 05/20/17 14:38 37.0 85 18 165/107 94 Room Air 05/20/17 14:13 94 22 174/105 93 Room Air 05/20/17 13:20 90 24 160/108 93 Room Air 05/20/17 12:43 92 05/20/17 12:34 153 05/20/17 12:32 84 05/20/17 11:52 Room Air 05/20/17 11:49 92 Room Air 05/20/17 11:37 85 18 150/92 93 Room Air 05/20/17 11:13 36.7 81 16 159/82 94 Room Air Physical Exam GENERAL: Awake, alert, well-appearing, in no distress HENT: Normocephalic, atraumatic. Oropharynx unremarkable. EYES: Normal conjunctiva. Sclera non-icteric. NECK: Supple. No nuchal rigidity. FROM. No JVD. RESPIRATORY: Clear to auscultation. CARDIAC: Regular rate, normal rhythm. Extremities warm and well perfused. Pulses equal. ABDOMEN: Soft, non-distended. No tenderness to palpation. No rebound or guarding. No masses. RECTAL: Deferred. MUSCULOSKELETAL: Chest examination reveals no tenderness. The back is symmetrical on inspection without obvious abnormality. There is no CVA tenderness to palpation. No joint edema. LOWER EXTREMITIES: Calves are equal size bilaterally and non-tender. No edema. No discoloration. NEURO: Normal sensorium. No sensory or motor deficits noted. SKIN: No rash or jaundice noted. Medical Decision & Procedures ER Provider Diagnostic Interpretation: Radiology results as stated below per my review and radiologist interpretation: SINGLE VIEW CHEST CLINICAL HISTORY: Hypertension. FINDINGS: An AP, portable, upright chest radiograph is compared to study dated 01/26/2017. The examination is degraded by portable technique and patient rotation. The heart is enlarged and there is atherosclerotic calcification of the thoracic aorta. The pulmonary vasculature is noncongested. Linear opacities are present at both lung bases. No large pleural effusion or pneumothorax is seen. The skeletal structures are osteopenic. The bony thorax is grossly intact. IMPRESSION: 1. Cardiomegaly without radiographic evidence of congestive failure. 2. Linear opacities are present at both lung bases and likely represent atelectasis. Correlate clinically for evidence of superimposed pneumonia/aspiration pneumonitis. Electronically signed by: Curtis Nj M.D. 05/20/2017 12:10 PM Dictated Date/Time: 05/20/2017 12:09 PM Laboratory Results 05/20/17 12:15 Red Blood Count 5.21, Mean Corpuscular Volume 86.8, Mean Corpuscular Hemoglobin 29.2, Mean Corpuscular Hemoglobin Concent 33.6, Mean Platelet Volume 8.9, Neutrophils (%) (Auto) 91.1, Lymphocytes (%) (Auto) 4.0, Monocytes (%) (Auto) 3.8, Eosinophils (%) (Auto) 0.5, Basophils (%) (Auto) 0.3, Neutrophils # (Auto) 13.77, Lymphocytes # (Auto) 0.60, Monocytes # (Auto) 0.57, Eosinophils # (Auto) 0.08, Basophils # (Auto) 0.05 05/20/17 12:15 Test 05/20/17 12:10 05/20/17 12:15 Urine Color YELLOW Urine Appearance CLEAR (CLEAR) Urine pH 5.0 (4.5-7.5) Urine Specific Wilson 1.016 (1.000-1.030) Urine Protein NEG (NEG) Urine Glucose (UA) NEG (NEG) Urine Ketones NEG (NEG) Urine Occult Blood TRACE (NEG) Urine Nitrite NEG (NEG) Urine Bilirubin NEG (NEG) Urine Urobilinogen NEG (NEG) Urine Leukocyte Esterase LARGE (NEG) Urine WBC (Auto) 5-10 /hpf (0-5) Urine RBC (Auto) 0-4 /hpf (0-4) Urine Hyaline Casts (Auto) 1-5 /lpf (0-5) Urine Epithelial Cells (Auto) >30 /lpf (0-5) Urine Bacteria (Auto) 4+ (NEG) White Blood Count 15.11 K/uL (4.8-10.8) Red Blood Count 5.21 M/uL (4.2-5.4) Hemoglobin 15.2 g/dL (12.0-16.0) Hematocrit 45.2 % (37-47) Mean Corpuscular Volume 86.8 fL (80-100) Mean Corpuscular Hemoglobin 29.2 pg (25-34) Mean Corpuscular Hemoglobin Concent 33.6 g/dl (32-36) Platelet Count 298 K/uL (130-400) Mean Platelet Volume 8.9 fL (7.4-10.4) Neutrophils (%) (Auto) 91.1 % Lymphocytes (%) (Auto) 4.0 % Monocytes (%) (Auto) 3.8 % Eosinophils (%) (Auto) 0.5 % Basophils (%) (Auto) 0.3 % Neutrophils # (Auto) 13.77 K/uL (1.4-6.5) Lymphocytes # (Auto) 0.60 K/uL (1.2-3.4) Monocytes # (Auto) 0.57 K/uL (0.11-0.59) Eosinophils # (Auto) 0.08 K/uL (0-0.5) Basophils # (Auto) 0.05 K/uL (0-0.2) RDW Standard Deviation 44.6 fL (36.4-46.3) RDW Coefficient of Variation 14.1 % (11.5-14.5) Immature Granulocyte % (Auto) 0.3 % Immature Granulocyte # (Auto) 0.04 K/uL (0.00-0.02) Prothrombin Time 11.4 SECONDS (9.0-12.0) Prothromb Time International Ratio 1.1 (0.9-1.1) Activated Partial Thromboplast Time 29.1 SECONDS (21.0-31.0) Partial Thromboplastin Ratio 1.1 Anion Gap 8.0 mmol/L (3-11) Est Creatinine Clear Calc Drug Dose 52.1 ml/min Estimated GFR () 74.5 Estimated GFR (Non- 64.3 BUN/Creatinine Ratio 11.1 (10-20) Calcium Level 10.1 mg/dl (8.5-10.1) Total Bilirubin 0.7 mg/dl (0.2-1) Direct Bilirubin 0.1 mg/dl (0-0.2) Aspartate Amino Transf (AST/SGOT) 20 U/L (15-37) Alanine Aminotransferase (ALT/SGPT) 22 U/L (12-78) Alkaline Phosphatase 77 U/L (45-117) Total Creatine Kinase 45 U/L (26-192) Creatine Kinase MB 3.4 ng/ml (0.5-3.6) Creatine Kinase MB Ratio 7.6 (0-3.0) Troponin I < 0.015 ng/ml (0-0.045) Total Protein 8.0 gm/dl (6.4-8.2) Albumin 3.6 gm/dl (3.4-5.0) Lipase 87 U/L (73-393) Thyroid Stimulating Hormone (TSH) 3.500 uIu/ml (0.300-4.500) Laboratory results reviewed by me Medications Administered Medications (Trade) Dose Ordered Sig/Amos Route Start Time Stop Time Status Last Admin Dose Admin Ceftriaxone Sodium (Rocephin Inj) 1 gm NOW STAT IV 05/20/17 13:15 05/20/17 13:16 DC 05/20/17 13:30 1 GM Metoprolol Succinate (Toprol Xl Tab) 25 mg NOW STAT PO 05/20/17 14:04 05/20/17 14:05 DC 05/20/17 14:37 25 MG ECG Rate (beats per minute): 82 Rhythm: normal sinus Findings: no acute ischemic change, no ectopy ED Course 1206: The patient was evaluated in room C3. A complete history and physical exam was performed. 1241: Cardiac monitoring revealed about 1 minute of SVT. 1315: Ordered Rocephin Inj 1 gm IV. 1316: I reevaluated the patient and she is doing okay. 1349: I discussed the patient's case with Dr. Gonzalez. He is going to review the patient's case. 1401: Discussed the patient's case with Dr. Gonzalez and he said he will see her in his office this week. He said to start her on Toprol XL 25 mg. 1404: Ordered Toprol Xl Tab 25 mg PO. 1435: I reevaluated the patient. Discussed results and discharge instructions: She verbalized understanding and agreement. The patient is ready for discharge. Medical Decision Prior records/ancillary studies reviewed regarding the history above. Triage Nursing notes reviewed and agree them. Additional history obtained from the family. The patient's history was concerning for hypertension. Differential diagnosis: Etiologies such as hypertensive urgency, hypertensive emergency, benign hypertension, cardiovascular pathology, pheochromocytoma, electrolyte abnormality, renal disease, endorgan damage, as well as others were entertained. Physical examination: As above. ER treatment provided: IV Rocephin Oral Toprol-XL 25 mg On reassessment the patient felt well. Diagnostic interpretation by me: The electrocardiogram was negative for pathologic change. Cardiac monitoring revealed an episode of paroxysmal SVT. The labs revealed an unremarkable chemistry panel. Cardiac markers negative. Urinalysis concerning for infection. The patient is a slight leukocytosis. Chest x-ray as above. Consultation: A consultation was placed with the armored car guard on-call, Dr. Gonzalez. The case was discussed and diagnostics were reviewed. He recommended initiation of Toprol and close follow-up in the office. This was done. The patient appears to have a UTI but has really minimal symptoms. She wished to go because of her hypertension. She is not altered. She is not febrile. She was given Rocephin. I discussed treatment with Keflex and close follow-up with her primary physician. Patient and felt comfortable. The patient also will benefit from initiation of the beta gregoria. I gave my usual and customary discussion regarding this issue. By the evaluation outlined above emergent etiologies such as hypertensive emergency, pheochromocytoma, endorgan damage, cardiac ischemia, aortic dissection, pulmonary embolism, pneumonia, pneumothorax, gastrointestinal, as well as others were deemed relatively unlikely. The patient and were informed about the findings as listed above. All questions were answered and they were pleased with the treatment. Return instructions were outlined and the patient was discharged in stable condition. Outpatient prescription management: Keflex Toprol Referral: The patient was referred back to cardiology and her primary care physician for follow-up in 2 to 3 days for a recheck of the current condition. The chart was completed utilizing [employer] Speech voice recognition software. Grammatical errors, random word insertions, pronoun errors, and incomplete sentences are an occasional consequence of this system due to software limitations, ambient noise, and hardware issues. Any formal questions or concerns about the content, text, or information contained within the body of this dictation should be directly addressed to the physician for clarification. Medication Reconcilliation Current Medication List: was personally reviewed by me Blood Pressure Screening Patient's blood pressure: Elevated blood pressure Blood pressure disposition: Referred to PCP Consults Time Called: 1331 Consulting Physician: Dr. Gonzalez Returned Call: 1349, 1401 1349: I discussed the patient's case with Dr. Gonzalez. He is going to review the patient's case. 1401: Discussed the patient's case with Dr. Gonzalez and he said he will see her in his office this week. He said to start her on Toprol XL 25 mg. Impression Primary Impression: Hypertension Additional Impressions: UTI (urinary tract infection) Paroxysmal supraventricular tachycardia Scribe Attestation The scribe's documentation has been prepared under my direction and personally reviewed by me in its entirety. I confirm that the note above accurately reflects all work, treatment, procedures, and medical decision making performed by me. Departure Information Dispostion Home / Self-Care Prescriptions Metoprolol Succ (Toprol Xl) (Toprol-Xl) 25 Mg Tabcr 25 MG PO DAILY, #14 TAB Prov: Lloyd Linder MD 05/20/17 Cephalexin Monohydrate (Keflex) 500 Mg Cap 500 MG PO QID, #20 CAP Prov: Lloyd Linder MD 05/20/17 Referrals [facility] (PCP) Forms HOME CARE DOCUMENTATION FORM, IMPORTANT VISIT INFORMATION, WORK / SCHOOL INSTRUCTIONS Patient Instructions My [facility] Additional Instructions Cephalexin(Keflex) 500mg: Take one pill four times daily for 5 days for your urine infection. All antibiotics can cause diarrhea. If this occurs and you feel worse or it does not resolve in 1-2 days follow up with your doctor or return to the Emergency Department as this could be signs of serious underlying problems. Any medication can cause an allergic reaction, stop the pills immediately and return to the ER for rash, hives, breathing difficulties, or swelling. Toprol-XL 25 mg. Take one daily. Continue all of the current medications. Review the package insert for all your medications. This is necessary as important health information is provided for your benefit and current care. Tylenol: Take 1000 mg every 6 hours as needed for pain. Do not take more than 3000 mg in a 24 hour period. Rest and drink plenty of fluids. Follow-up with your primary physician this coming week. Follow-up with [facility] cardiology this week. The number is listed below under Dr. Gonzalez. Call them Sunday. Return to the ER for worsening anxiety, weakness, palpitations, lightheadedness , passing out, chest pain, difficulty breathing, fevers, vomiting, worsening of your condition, or as needed. Problem Qualifiers
== END 2017-05-20 15:39 | disposition home or self-care (01) ==
LOC: C.EDB 11:05 → C.EDC 14:39
DX: I10 Essential (primary) hypertension (principal); N39.0 Urinary tract infection, site not specified; I47.1 Supraventricular tachycardia; M17.11 Unilateral primary osteoarthritis, right knee; J44.9 Chronic obstructive pulmonary disease, unspecified; M35.3 Polymyalgia rheumatica; Z79.52 Long term (current) use of systemic steroids; Z90.710 Acquired absence of both cervix and uterus; Z96.659 Presence of unspecified artificial knee joint; Z80.9 Family history of malignant neoplasm, unspecified; Z82.49 Family history of ischemic heart disease and other diseases of the circulatory system; Z82.3 Family history of stroke

== ENCOUNTER 2017-09-07 19:17 | Emergency (ER) | payer OTHER ==
[~2017-09-07] VITALS: Ht 167.6 cm; Wt 73.7 kg
[~2017-09-07 19:17] MED LIST changes: -ATRINS INH; -Boost Nutritional Drink PO; -CALCTAB7 PO; +CEPH500C PO; -CHOL100027 PO; -ENAL1TAB34 PO; -GUAI1TAB68 PO; -LATA0.009 OPB; -LVQ750 PO; +METO25TA3 PO; +PLQ200 PO; +POTA-65 PO; -POTA10CA28 PO; -PRED-301 PO; -XPNINS INH
[2017-09-07 19:20] VITALS: TEMP 36.6; Ht 167.6 cm; Wt 73.7 kg
[2017-09-07 19:58] LABS: BASO % 0.2 %; BASO ABS # 0.03 K/uL (0-0.2); EOS % 2.8 %; EOS ABS # 0.34 K/uL (0-0.5); HEMATOCRIT 45.6 % (37-47); HEMOGLOBIN 15.6 g/dL (12.0-16.0); IG# 0.13 K/uL (0.00-0.02); LYMPH % 12.1 %; LYMPH ABS # 1.46 K/uL (1.2-3.4); MEAN CORPUSCULAR HEMOGLOBIN 29.8 pg (25-34); MEAN CORPUSCULAR HGB CONC 34.2 g/dl (32-36); MEAN PLATELET VOLUME 8.4 fL (7.4-10.4); MONO % 9.1 %; MONO ABS # 1.09 K/uL (0.11-0.59); NEUT % 74.7 %; NEUT ABS # 8.98 K/uL (1.4-6.5); PLATELET COUNT 256 K/uL (130-400); RED CELL DISTRIBUTION WIDTH SD 47.5 fL (36.4-46.3); WHITE BLOOD COUNT 12.03 K/uL (4.8-10.8)
--- NOTE | 2017-09-07 20:00 | DIAGNOSTIC IMAGING REPORT ---
CHEST ONE VIEW PORTABLE CLINICAL HISTORY: 82 years-old Female presenting with SOB, confusion. TECHNIQUE: Portable upright AP view of the chest was obtained. COMPARISON: 05/20/2017. FINDINGS: Atherosclerosis of aortic arch. Cardiac silhouette enlarged. Lungs hyperinflated. Chronic bibasilar opacities. Heterogeneous lung parenchyma with relative density left midlung. No large pleural effusion or pneumothorax. Osseous structures normal. Upper abdomen normal. IMPRESSION: 1. Hyperinflation could suggest underlying emphysema. Relative density in the left lung in comparison to the right could raise concern for developing infiltrate. 2. Chronic bibasilar opacities possibly scarring or atelectasis. Electronically signed by: Luis Davila M.D. 09/07/2017 7:59 PM Dictated Date/Time: 09/07/2017 7:57 PM
[2017-09-07] MEDS ORDERED: SODIUM CHLORIDE 0.9% 1000ML 1,000 ML IV STA (20:02)
[2017-09-07] MEDS ORDERED: OPTIRAY 320 IV PRN (20:15)
[2017-09-07 20:24] LABS: ALBUMIN 3.2 gm/dl (3.4-5.0); ALKALINE PHOSPHATASE 84 U/L (45-117); ALT/SGPT 25 U/L (12-78); BLOOD UREA NITROGEN 25 mg/dl (7-18); CALCIUM 8.7 mg/dl (8.5-10.1); CARBON DIOXIDE 29 mmol/L (21-32); CREATININE 1.02 mg/dl (0.60-1.20); GLUCOSE 106 mg/dl (70-99)
--- NOTE | 2017-09-07 20:27 | EMERGENCY ROOM VISIT NOTE ---
History Report prepared by [place]: Sandee Figueroa Under the Supervision of: Dr. Eliza Burr M.D. 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 She has been seeing a doctor for COPD, pneumonia, and UTI symptoms for the past 2 weeks. Her states her symptoms started about 10 days ago. He states she feels like she is "suffocating" specifically on the left side. Apparently her left lung is not improving on chest x-ray. The patient has been on higher dose prednisone recently. Her states she had significant altered mentation last night. She was agitated and pacing. Patient had a bit of confusion and was "befuddled" all night. 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 A total of 10 systems reviewed and were otherwise negative. Past Medical & Surgical Medical Problems: (1) Arthritis of right knee (2) COPD (chronic obstructive pulmonary disease) (3) Cough (4) Hypertension (5) PMR (polymyalgia rheumatica) Surgical Problems: (1) S/P hysterectomy (2) S/P knee replacement Family History Cancer Heart disease Hypertension Lung disease Stroke Social History Smoking Status: Never Smoker Drug Use: none Marital Status: Housing Status: lives with family Occupation Status: retired Current/Historical Medications Scheduled Amoxicillin (Amoxil), 500 MG PO TID Aspirin (Aspirin Ec), 81 MG PO DAILY Calcium Carbonate-Vitamin D W/ (Caltrate 600 Plus), 1 TAB PO BID Cholecalciferol (Vitamin D 1000 Unit), 5,000 INTER.UNIT PO QAM Colesevelam Hcl (Welchol), 625 MG PO BID Enalapril Maleate (Vasotec), 10 MG PO BID Fluticasone Propionate (Fluticasone Propionate), 2 SPRAYS GREGORIO DAILY Hydrochlorothiazide (Hydrochlorothiazide), 25 MG PO QAM Hydroxychloroquine Sulfate (Plaquenil), 200 MG PO DAILY Latanoprost (Xalatan 0.005% Oph Lizz), 1 DROP OPB HS Metoprolol Succinate (Metoprolol Succinate ER), 50 MG PO QAM Metoprolol Succinate (Toprol Xl), 25 MG PO QPM Montelukast Sod (Montelukast Sodium), 10 MG PO DAILY Multivitamin (Multivitamin), 1 TAB PO QAM Potassium Chloride (Potassium Chloride ER), 20 MEQ PO BID Prednisone (Prednisone), 5 MG PO DAILY Tiotropium [place] (Spiriva Handihaler), 1 CAP INH DAILY Scheduled PRN Acetaminophen (Tylenol), 1,000 MG PO Q6 PRN for Pain or Fever Ipratropium-Albuterol (Duoneb), 1 TREATMENT INH Q6 PRN for cough/sob [Proair 108MCG/Act], 2 PUFF INH Q4 PRN for COUGH, SOB, WHEEZE Allergies Coded Allergies: Aspirin (Verified Allergy, Intermediate, HIVES, 05/20/17) Erythromycin (Verified Allergy, Intermediate, HIVES, N/V, 05/20/17) Nitrofurantoin (Verified Allergy, Intermediate, rash, 05/20/17) Sulfa Antibiotics (Verified Allergy, Intermediate, HIVES, 05/20/17) Amoxicillin (Verified Adverse Reaction, Mild, NAUSEA, 05/20/17) Ciprofloxacin (Verified Adverse Reaction, Mild, N/V, 05/20/17) Clavulanic Acid (Verified Adverse Reaction, Mild, VOMITING, 05/20/17) Codeine (Verified Adverse Reaction, Mild, N/V, 05/20/17) Morphine (Verified Adverse Reaction, Mild, VOMITING, 05/20/17) Physical Exam Vital Signs Date Time Temp Pulse Resp B/P (MAP) Pulse Ox O2 Delivery O2 Flow Rate FiO2 09/07/17 22:30 77 24 152/83 96 Room Air 09/07/17 22:00 83 24 09/07/17 21:37 81 18 162/89 97 Room Air 09/07/17 20:16 75 09/07/17 20:05 Room Air 09/07/17 19:20 36.6 82 18 160/77 92 Room Air Physical Exam Vital signs reviewed. General: Well-appearing female, in no significant distress. HEENT: No scleral icterus, PERRLA, neck supple. Atraumatic. Cardiovascular: Regular rate and rhythm, no extra sounds. Pulmonary: Faint scattered wheezes to the bilateral lung page. Abdomen: Soft, nontender, nondistended, positive bowel sounds. Musculoskeletal: Atraumatic, no peripheral edema. Neurologic: Patient awake alert and oriented x 3, full strength in all 4 extremities. Cranial nerves 2 through 12 grossly intact. Skin: Warm, dry, no rash Medical Decision & Procedures ER Provider Diagnostic Interpretation: Radiology results as stated below per my review and radiologist interpretation: CHEST ONE VIEW PORTABLE CLINICAL HISTORY: 82 years-old Female presenting with SOB, confusion. TECHNIQUE: Portable upright AP view of the chest was obtained. COMPARISON: 05/20/2017. FINDINGS: Atherosclerosis of aortic arch. Cardiac silhouette enlarged. Lungs hyperinflated. Chronic bibasilar opacities. Heterogeneous lung parenchyma with relative density left midlung. No large pleural effusion or pneumothorax. Osseous structures normal. Upper abdomen normal. IMPRESSION: 1. Hyperinflation could suggest underlying emphysema. Relative density in the left lung in comparison to the right could raise concern for developing infiltrate. 2. Chronic bibasilar opacities possibly scarring or atelectasis. Electronically signed by: Luis Davila M.D. 09/07/2017 7:59 PM Dictated Date/Time: 09/07/2017 7:57 PM (CHEST FOR PE) ANGIO WITH CLINICAL HISTORY: 82 years-old Female presenting with ^SOB, PNA, Tx for 10 days, continued SOB, confusion. TECHNIQUE: Multidetector CT angiography of the chest was performed after administration of intravenous contrast. 3-D volumetric and/or maximum intensity projection (MIP) images were subsequently reconstructed for review. IV contrast: 82 mL of Optiray 320. A dose lowering technique was used consistent with the principles of ALARA (as low as reasonably achievable). COMPARISON: Chest x-ray performed earlier the same day. CT DOSE (mGy.cm): The estimated cumulative dose is 438.76 mGy.cm. FINDINGS: Pipe Washer topogram: Unremarkable. Pulmonary vasculature: The study is adequate for assessment of the pulmonary vascular tree. No filling defect within the pulmonary arteries to suggest embolus. Subtle narrowing of left upper lobe pulmonary artery. Main pulmonary artery is not enlarged. No flattening of the interventricular septum. No intracardiac filling defect. No reflux of contrast into the hepatic veins. Remaining chest: On soft tissue windows, normal thyroid and thoracic inlet. Numerous pathologically enlarged mediastinal lymph nodes. An index mediastinal node in the prevascular region measures 11 mm in the short axis. Fullness in the left hilum. Atherosclerosis of the aorta. Normal heart size. Coronary artery calcification. Trace pericardial effusion. No pleural effusion. Upper abdomen normal. On lung windows, mosaic attenuation at the lung bases could suggest small airways disease. Emphysema. Extensive irregular patchy solid consolidation in the lingula. Interlobular septal thickening in this region. Extensive bronchial wall thickening, resulting in narrowing of the left upper lobe segmental bronchi. Narrowing of the left lower lobe bronchus also noted. Nodular thickening of the left major fissure suggested. Minimal patchy consolidation also noted in the superior segment of the left lower lobe. Central airways patent. Bandlike opacity in the right middle lobe likely atelectasis or scarring. On bone windows, degenerative changes of the spine. IMPRESSION: 1. Patchy irregular consolidation in the lingula and to a lesser extent the superior segment of the left upper lobe. This could represent infection, however, the appearance is somewhat irregular. Furthermore, there are features which are suspicious and raise concern for an underlying neoplasm. Specifically, narrowing of the left upper and lower lobe bronchi and left upper lobe pulmonary artery are highly atypical in the setting of infection and suspicious for malignancy. Nodular pleural thickening and such exuberant mediastinal lymphadenopathy also atypical infection. Differential considerations include sarcoidosis. This should be followed to resolution. 2. Emphysema. 3. Mediastinal lymphadenopathy. 4. No pulmonary embolism. Electronically signed by: Luis Davila M.D. 09/07/2017 9:16 PM HEAD WITHOUT CONTRAST (CT) CLINICAL HISTORY: 82 years-old Female presenting with AMS, confusion. TECHNIQUE: Multidetector CT imaging of the head was performed without the use of intravenous contrast. IV contrast: None. A dose lowering technique was used consistent with the principles of ALARA (as low as reasonably achievable). COMPARISON: None. CT DOSE (mGy.cm): The estimated cumulative dose is 921.40 mGy.cm. FINDINGS: Pipe Washer topogram: Unremarkable. Ex vacuo dilatation of the left lateral ventricle likely due to cystic encephalomalacia in the anterior left temporal lobe from prior surgery and/or infarct. Possible limited old infarct in the paramedian left occipital lobe. Periventricular and subcortical white matter hypoattenuation, nonspecific but likely indicative of chronic small vessel ischemic change. No mass effect or midline shift. Acute hemorrhage in the left parietal vertex, which may be subarachnoid rather than intraparenchymal. No intraventricular hemorrhage. No convincing evidence of acute territorial infarct. Postsurgical changes of left pterional craniotomy with suspected aneurysm clips in the region of the left MCA bifurcation. IMPRESSION: 1. Findings most consistent with subarachnoid hemorrhage at the left parietal vertex. 2. Postsurgical changes of left parietal craniotomy with suspected aneurysm clips in the region of the left MCA bifurcation. 3. 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 4. Extensive chronic small vessel ischemic change. The report will be called/faxed according to standard departmental protocol. Electronically signed by: Luis Davila M.D. 09/07/2017 9:05 PM Dictated Date/Time: 09/07/2017 9:00 PM Laboratory Results 09/07/17 19:45 Red Blood Count 5.24, Mean Corpuscular Volume 87.0, Mean Corpuscular Hemoglobin 29.8, Mean Corpuscular Hemoglobin Concent 34.2, Mean Platelet Volume 8.4, Neutrophils (%) (Auto) 74.7, Lymphocytes (%) (Auto) 12.1, Monocytes (%) (Auto) 9.1, Eosinophils (%) (Auto) 2.8, Basophils (%) (Auto) 0.2, Neutrophils # (Auto) 8.98, Lymphocytes # (Auto) 1.46, Monocytes # (Auto) 1.09, Eosinophils # (Auto) 0.34, Basophils # (Auto) 0.03 09/07/17 19:45 Test 09/07/17 19:45 White Blood Count 12.03 K/uL (4.8-10.8) Red Blood Count 5.24 M/uL (4.2-5.4) Hemoglobin 15.6 g/dL (12.0-16.0) Hematocrit 45.6 % (37-47) Mean Corpuscular Volume 87.0 fL (80-100) Mean Corpuscular Hemoglobin 29.8 pg (25-34) Mean Corpuscular Hemoglobin Concent 34.2 g/dl (32-36) Platelet Count 256 K/uL (130-400) Mean Platelet Volume 8.4 fL (7.4-10.4) Neutrophils (%) (Auto) 74.7 % Lymphocytes (%) (Auto) 12.1 % Monocytes (%) (Auto) 9.1 % Eosinophils (%) (Auto) 2.8 % Basophils (%) (Auto) 0.2 % Neutrophils # (Auto) 8.98 K/uL (1.4-6.5) Lymphocytes # (Auto) 1.46 K/uL (1.2-3.4) Monocytes # (Auto) 1.09 K/uL (0.11-0.59) Eosinophils # (Auto) 0.34 K/uL (0-0.5) Basophils # (Auto) 0.03 K/uL (0-0.2) RDW Standard Deviation 47.5 fL (36.4-46.3) RDW Coefficient of Variation 15.0 % (11.5-14.5) Immature Granulocyte % (Auto) 1.1 % Immature Granulocyte # (Auto) 0.13 K/uL (0.00-0.02) Anion Gap 9.0 mmol/L (3-11) Est Creatinine Clear Calc Drug Dose 43.7 ml/min Estimated GFR () 59.3 Estimated GFR (Non- 51.2 BUN/Creatinine Ratio 24.9 (10-20) Calcium Level 8.7 mg/dl (8.5-10.1) Magnesium Level 1.9 mg/dl (1.8-2.4) Total Bilirubin 0.6 mg/dl (0.2-1) Direct Bilirubin 0.2 mg/dl (0-0.2) Aspartate Amino Transf (AST/SGOT) 19 U/L (15-37) Alanine Aminotransferase (ALT/SGPT) 25 U/L (12-78) Alkaline Phosphatase 84 U/L (45-117) Total Creatine Kinase 52 U/L (26-192) Creatine Kinase MB 5.0 ng/ml (0.5-3.6) Creatine Kinase MB Ratio 9.6 (0-3.0) Troponin I < 0.015 ng/ml (0-0.045) Pro-B-Type Natriuretic Peptide 145 pg/ml (0-1800) Total Protein 7.0 gm/dl (6.4-8.2) Albumin 3.2 gm/dl (3.4-5.0) Laboratory results per my review. Medications Administered Medications (Trade) Dose Ordered Sig/Amos Route Start Time Stop Time Status Last Admin Dose Admin Sodium Chloride 1,000 ml @ 125 mls/hr Q8H STAT IV 09/07/17 20:02 09/08/17 04:01 09/07/17 20:02 125 MLS/HR ECG Per My Interpretation Indication: altered mental status, other (dyspnea) Rate (beats per minute): 84 Rhythm: normal sinus Findings: Q waves (Anterior) Change: no significant change (05/20/17) ED Course 1999: Past medical records reviewed. The patient was evaluated in room B10. A complete history and physical examination was performed. 2212: I reviewed the patient's case with Dr. Flores, neurosurgery, who will will evaluate the patient for further management. Medical Decision Differential diagnosis: Etiologies such as infections, reactive airway disease, pneumonia, pneumothorax , COPD, CHF, cardiac ischemia, pulmonary embolism, musculoskeletal, gastrointestinal, as well as others were entertained. This patient was evaluated and appeared to be in no significant distress. Patient is neurologically intact to my evaluation. Patient is maintaining her oxygenation on room air. She is speaking in full sentences. Chest x-ray was performed and reveals infiltrative changes to the left lung. As the patient has completed antibiotics and the infiltrative changes persist, CT scan of the chest was performed and reveals concerning changes for neoplasm/malignancy. CT scan of the head was performed due to the altered mentation and reveals a left parietal subarachnoid hemorrhage. Patient has had previous coiling in 1991. I did speak with Dr. Flores. He has accepted the patient and to the neurosurgical ICU. Case was discussed with Dr. Adrian of critical care medicine. ALS ground transportation arrangements were attempted however due to high acuity in the area this evening with multiple large events, ambulance transfer would not be arranged for several hours. Due to the acute intracranial bleeding, [facility] was contacted and will the patient was transferred via helicopter. Patient has been were made aware of the plan and agree. Medication Reconcilliation Current Medication List: was personally reviewed by me Blood Pressure Screening Patient's blood pressure: Elevated blood pressure Blood pressure disposition: Elevated BP felt to be situational Consults Time Called: 2209 Consulting Physician: Dr. Avina, neurosurgery Returned Call: [id number] He will accept the transfer and further evaluate the patient. Impression Primary Impression: Subarachnoid hemorrhage Additional Impression: Lung neoplasm Critical Care I have personally spent greater than 60 minutes of critical care time in the direct management of this patient. This includes bedside care, interpretation of diagnostic studies, and testing, discussion with consultants, patient, and family members, and other required patient management activities. This 60 minutes is in excess of all separately billable procedures. Scribe Attestation The scribe's documentation has been prepared under my direction and personally reviewed by me in its entirety. I confirm that the note above accurately reflects all work, treatment, procedures, and medical decision making performed by me. Departure Information Dispostion Being Evaluated By Surgeon (Dr. Avina, neurosurgery) Referrals [facility] D.Ivonne (PCP) Forms HOME CARE DOCUMENTATION FORM, IMPORTANT VISIT INFORMATION Patient Instructions My [facility] Health Problem Qualifiers
[2017-09-07 20:34] LABS: POTASSIUM 3.5 mmol/L (3.5-5.1); SODIUM 140 mmol/L (136-145)
[2017-09-07 20:42] LABS: AST/SGOT 19 U/L (15-37)
--- NOTE | 2017-09-07 21:06 | DIAGNOSTIC IMAGING REPORT ---
HEAD WITHOUT CONTRAST (CT) CLINICAL HISTORY: 82 years-old Female presenting with AMS, confusion. TECHNIQUE: Multidetector CT imaging of the head was performed without the use of intravenous contrast. IV contrast: None. A dose lowering technique was used consistent with the principles of ALARA (as low as reasonably achievable). COMPARISON: None. CT DOSE (mGy.cm): The estimated cumulative dose is 921.40 mGy.cm. FINDINGS: Fast Food Worker topogram: Unremarkable. Ex vacuo dilatation of the left lateral ventricle likely due to cystic encephalomalacia in the anterior left temporal lobe from prior surgery and/or infarct. Possible limited old infarct in the paramedian left occipital lobe. Periventricular and subcortical white matter hypoattenuation, nonspecific but likely indicative of chronic small vessel ischemic change. No mass effect or midline shift. Acute hemorrhage in the left parietal vertex, which may be subarachnoid rather than intraparenchymal. No intraventricular hemorrhage. No convincing evidence of acute territorial infarct. Postsurgical changes of left pterional craniotomy with suspected aneurysm clips in the region of the left MCA bifurcation. IMPRESSION: 1. Findings most consistent with subarachnoid hemorrhage at the left parietal vertex. 2. Postsurgical changes of left parietal craniotomy with suspected aneurysm clips in the region of the left MCA bifurcation. 3. 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 4. Extensive chronic small vessel ischemic change. The report will be called/faxed according to standard departmental protocol. Electronically signed by: Luis Davila M.D. 09/07/2017 9:05 PM Dictated Date/Time: 09/07/2017 9:00 PM
--- NOTE | 2017-09-07 21:17 | DIAGNOSTIC IMAGING REPORT ---
(CHEST FOR PE) ANGIO WITH CLINICAL HISTORY: 82 years-old Female presenting with ^SOB, PNA, Tx for 10 days, continued SOB, confusion. TECHNIQUE: Multidetector CT angiography of the chest was performed after administration of intravenous contrast. 3-D volumetric and/or maximum intensity projection (MIP) images were subsequently reconstructed for review. IV contrast: 82 mL of Optiray 320. A dose lowering technique was used consistent with the principles of ALARA (as low as reasonably achievable). COMPARISON: Chest x-ray performed earlier the same day. CT DOSE (mGy.cm): The estimated cumulative dose is 438.76 mGy.cm. FINDINGS: Open Shank Coverer topogram: Unremarkable. Pulmonary vasculature: The study is adequate for assessment of the pulmonary vascular tree. No filling defect within the pulmonary arteries to suggest embolus. Subtle narrowing of left upper lobe pulmonary artery. Main pulmonary artery is not enlarged. No flattening of the interventricular septum. No intracardiac filling defect. No reflux of contrast into the hepatic veins. Remaining chest: On soft tissue windows, normal thyroid and thoracic inlet. Numerous pathologically enlarged mediastinal lymph nodes. An index mediastinal node in the prevascular region measures 11 mm in the short axis. Fullness in the left hilum. Atherosclerosis of the aorta. Normal heart size. Coronary artery calcification. Trace pericardial effusion. No pleural effusion. Upper abdomen normal. On lung windows, mosaic attenuation at the lung bases could suggest small airways disease. Emphysema. Extensive irregular patchy solid consolidation in the lingula. Interlobular septal thickening in this region. Extensive bronchial wall thickening, resulting in narrowing of the left upper lobe segmental bronchi. Narrowing of the left lower lobe bronchus also noted. Nodular thickening of the left major fissure suggested. Minimal patchy consolidation also noted in the superior segment of the left lower lobe. Central airways patent. Bandlike opacity in the right middle lobe likely atelectasis or scarring. On bone windows, degenerative changes of the spine. IMPRESSION: 1. Patchy irregular consolidation in the lingula and to a lesser extent the superior segment of the left upper lobe. This could represent infection, however, the appearance is somewhat irregular. Furthermore, there are features which are suspicious and raise concern for an underlying neoplasm. Specifically, narrowing of the left upper and lower lobe bronchi and left upper lobe pulmonary artery are highly atypical in the setting of infection and suspicious for malignancy. Nodular pleural thickening and such exuberant mediastinal lymphadenopathy also atypical infection. Differential considerations include sarcoidosis. This should be followed to resolution. 2. Emphysema. 3. Mediastinal lymphadenopathy. 4. No pulmonary embolism. Electronically signed by: Luis Davila M.D. 09/07/2017 9:16 PM Dictated Date/Time: 09/07/2017 9:08 PM
[2017-09-07] MEDS ORDERED: IPRASOL4 INH (21:58)
[2017-09-07] MEDS ORDERED: AMOX500C3 PO (21:59)
[2017-09-07] MEDS ORDERED: FLNIN/ NAE (22:12)
[2017-09-07] MEDS ORDERED: HYDR25TA5 PO (22:12)
[2017-09-07] MEDS ORDERED: VST10 PO (22:12)
[2017-09-07] MEDS ORDERED: METO25TA4 PO (22:12)
[2017-09-07] MEDS ORDERED: TPRSR/25 PO (22:12)
[2017-09-07] MEDS ORDERED: ASPI81TA28 PO (22:12)
[2017-09-07] MEDS ORDERED: HYDR200T5 PO (22:12)
[2017-09-07] MEDS ORDERED: ACET-1256 PO (22:12)
[2017-09-07] MEDS ORDERED: PRED10TA PO (22:12)
[2017-09-07] MEDS ORDERED: SNG10 PO (22:12)
[2017-09-07] MEDS ORDERED: PROAIR INH (22:12)
[2017-09-07 23:05] VITALS: PULSE 82; O2SAT 93
[2017-09-07 23:27] VITALS: BP 169/89
[2017-09-07] MEDS ORDERED: ENAL1TAB34 PO (23:35)
[2017-09-07] MEDS ORDERED: CHOL100027 PO (23:41)
[2017-09-07] MEDS ORDERED: CALCTAB7 PO (23:42)
[2017-09-07] MEDS ORDERED: LATA0.009 OPB (23:46)
== END 2017-09-07 23:44 | disposition short-term general hospital (02) ==
LOC: C.EDB 19:18
DX: I60.9 Nontraumatic subarachnoid hemorrhage, unspecified (principal); D49.1 Neoplasm of unspecified behavior of respiratory system; R06.02 Shortness of breath; R41.0 Disorientation, unspecified; J43.9 Emphysema, unspecified; J44.9 Chronic obstructive pulmonary disease, unspecified; Z79.899 Other long term (current) drug therapy; Z88.8 Allergy status to other drugs, medicaments and biological substances; I10 Essential (primary) hypertension; M35.3 Polymyalgia rheumatica

== ENCOUNTER → 2018-01-22 | Outpatient (CLI) | payer OTHER ==
[~2018-01-22] MED LIST changes: +ACET-1256 PO; +CALCTAB7 PO; -CEPH500C PO; +CIPR250T3 PO; +ENAL1TAB34 PO; +FLNIN/ NAE; -FLUT0.15 NAE; +HYDR200T5 PO; -HYDR25TA4 PO; +HYDR25TA5 PO; +IPRA-64 INH; +KPP250 PO; +LATA0.009 OPB; -METO25TA3 PO; +METO25TA4 PO; -MONT1TAB5 PO; -MULT-506 PO; -PLQ200 PO; +SNG10 PO; +TPRSR/25 PO
== END | disposition home or self-care (01) ==
LOC: C.LABWYN 16:18
PROVIDERS: ATTEND Family Medicine
DX: R41.82 Altered mental status, unspecified (principal)

== ENCOUNTER 2018-02-03 11:53 | Inpatient (IN) | payer OTHER ==
[~2018-02-03] VITALS: Ht 167.6 cm; Wt 64.8 kg
[2018-02-03] MEDS ORDERED: SODIUM CHLORIDE 0.9% 1000ML 250 ML IV STA (12:48)
[2018-02-03] MEDS ORDERED: SODIUM CHLORIDE 0.9% 1000ML 1,000 ML IV STA (12:48)
[2018-02-03] MEDS ORDERED: ATV5X PO (12:53)
[2018-02-03] MEDS ORDERED: FLUT1INH INH (12:53)
[2018-02-03] MEDS ORDERED: MELATAB2 PO (12:53)
[2018-02-03] MEDS ORDERED: MRLP527 PO (12:53)
--- NOTE | 2018-02-03 13:14 | DIAGNOSTIC IMAGING REPORT ---
CHEST ONE VIEW PORTABLE CLINICAL HISTORY: Chest pain. Lung cancer. COMPARISON STUDY: Chest radiograph November 12, [address] September 07, 2017. FINDINGS: Possible sclerotic lesion within the left humeral head is noted. There is no pneumothorax or pleural effusion. Cardiomegaly is unchanged. Asymmetric left lung interstitial thickening persists. This was shown on previous exam. There is no lobar consolidation. IMPRESSION: 1. Persistent asymmetric left lung interstitial thickening which raises the possibility of lymphangitic carcinomatosis. 2. Possible sclerotic lesion within the left humeral head. 3. Stable cardiomegaly. Electronically signed by: Vaughn Frost M.D. 02/03/2018 1:12 PM Dictated Date/Time: 02/03/2018 1:06 PM
[2018-02-03 13:28] LABS: BASO % 0.4 %; BASO ABS # 0.04 K/uL (0-0.2); EOS % 2.2 %; EOS ABS # 0.24 K/uL (0-0.5); HEMATOCRIT 42.9 % (37-47); HEMOGLOBIN 14.7 g/dL (12.0-16.0); IG# 0.11 K/uL (0.00-0.02); LYMPH % 7.3 %; LYMPH ABS # 0.81 K/uL (1.2-3.4); MEAN CELL VOLUME 84.6 fL (80-100); MEAN CORPUSCULAR HGB CONC 34.3 g/dl (32-36); MEAN PLATELET VOLUME 8.9 fL (7.4-10.4); MONO % 4.5 %; NEUT % 84.6 %; NEUT ABS # 9.46 K/uL (1.4-6.5); PLATELET COUNT 203 K/uL (130-400); RED CELL DISTRIBUTION WIDTH CV 14.9 % (11.5-14.5); RED CELL DISTRIBUTION WIDTH SD 45.7 fL (36.4-46.3); WHITE BLOOD COUNT 11.16 K/uL (4.8-10.8)
[2018-02-03 13:41] LABS: INR 1.1 (0.9-1.1); PTT PATIENT 26.8 SECONDS (21.0-31.0)
[2018-02-03 13:49] LABS: ALBUMIN 3.3 gm/dl (3.4-5.0); CREATININE 0.73 mg/dl (0.60-1.20); POTASSIUM 4.2 mmol/L (3.5-5.1); TOTAL PROTEIN 7.2 gm/dl (6.4-8.2)
--- NOTE | 2018-02-03 13:52 | DIAGNOSTIC IMAGING REPORT ---
CT OF THE HEAD WITHOUT CONTRAST CLINICAL HISTORY: Increasing weakness and confusion. Metastatic lung cancer. COMPARISON STUDY: Head CT November 13, 2017. TECHNIQUE: Helical axial images of the head were obtained without IV contrast. Automated exposure control was utilized for the study. A dose lowering technique was utilized adhering to the principles of ALARA. FINDINGS: Note is made of a 1.1 cm linear hyperdense focus within the left parietal vertex which has decreased in conspicuity since head CT of November 13, 2017. Otherwise, the appearance of the brain is unchanged. The ventricular system is stable. Basilar cisterns are patent. There are no extra axial collections. Left temporal lobe encephalomalacia is unchanged. Postoperative findings consistent with a left temporal craniotomy with aneurysm clipping is again noted. This is unchanged. A hypodensity within the right basal ganglia is unchanged and could reflect a prominent perivascular space or old lacunar infarct. White matter hypodensity suggests small vessel disease. There may be a 9 mm sclerotic lesion within the right aspect of the clivus. There is no calvarial fracture. IMPRESSION: 1. 1.1 cm hyperdense focus within the left parietal vertex which has decreased in conspicuity since head CT of November 13, 2017. This favors an underlying lesion which may have decreased in size since prior exam although is suboptimally assessed on this unenhanced exam. Otherwise, unchanged appearance of the brain. 2. Possible 9 mm sclerotic metastasis within the right aspect of the clivus. Electronically signed by: Vaughn Frost M.D. 02/03/2018 1:50 PM Dictated Date/Time: 02/03/2018 1:41 PM
--- NOTE | 2018-02-03 13:59 | DIAGNOSTIC IMAGING REPORT ---
LUMBAR SPINE CT WITHOUT CONTRAST CLINICAL HISTORY: Low back pain. Metastatic lung cancer. COMPARISON STUDY: Chest CT September 07, 2017. TECHNIQUE: Axial images of the lumbar spine were obtained without IV contrast. Sagittal and coronal reconstructions were viewed. FINDINGS: For purposes of numbering on this exam, the L5-S1 disc space is assigned to axial image 266 of 340. Alignment of the lumbar spine is anatomic with the exception of slight anterolisthesis of L4 and L5. Note is made of a fracture of the superior endplate of L1 with mild loss of vertebral body height. This fracture is likely acute to subacute. No additional lumbar spine fractures are noted. There is no significant retropulsion. No extension into the posterior elements is noted. Central canal and neural foramen are suboptimally assessed by CT. There is moderate disc space narrowing with vacuum disc phenomenon at L5-S1. There is disc bulge at this level. There is no evidence for severe central canal stenosis at this level. There is also disc bulge at L4-L5. No suspicious osseous lesion within the lumbar spine is identified by CT. There are multiple mildly enlarged left para-aortic and bilateral common iliac lymph nodes which measure up to 1.2 cm in short axis diameter. IMPRESSION: 1. Acute to subacute fracture involving the superior endplate of L1 without significant retropulsion. No extension into the posterior elements. The appearance favors a benign compression fracture. A pathologic fracture could appear similar although is considered less likely. 2. Multiple mildly enlarged left periaortic and bilateral common iliac lymph nodes which are likely neoplastic and favor metastatic disease although lymphoma could appear similar. Electronically signed by: Vaughn Frost M.D. 02/03/2018 1:58 PM Dictated Date/Time: 02/03/2018 1:51 PM
--- NOTE | 2018-02-03 14:10 | EMERGENCY ROOM VISIT NOTE ---
History Report prepared by [place]: Sarika Jhaveri Under the Supervision of: Dr. Cale Doherty M.D. First contact with patient: 12:35 Chief Complaint: OTHER COMPLAINT Stated Complaint: GEN ILLNESS History of Present Illness The patient is an 82 year old female who presents to the Emergency Room with complaints of an episode of poor hand-eye/muscle coordination that started 2-3 days ago. Per , the patient had labored breathing this morning and lost hand-eye/muscle coordination. The notes that the patient almost fell off her walker secondary to her loss of coordination. The patient denies any headache, vision changes, numbness, weakness, chest pain, and shortness of breath. The also notes that the patient has severe short term memory loss. He reports that this past week, they celebrated their anniversary and had a lot of people around, and that they are planning to move to a new apartment soon, which may have increased the patient's stress. The notes that the patient was hospitalized for similar symptoms on November 12, 2017 for after a stressful weekend. He notes that after 2 days of hospitalization, the patient went for rehabilitation at [facility]. At the time, the patient reportedly had a brain tumor and was diagnosed with lung cancer at [facility] at the end of October 2017. The states that the patient is scheduled for her second PET scan on February 06, 2018 and her 7th treatment is coming up next week. He reports that the patient has back pain secondary to arthritis that started 3 weeks ago. Per , the patient was found to have a cancerous tumor in her back. He notes that the patient does not take blood thinners but is on nebulizers for COPD. Source of History: patient, spouse/significant other () Onset: 2-3 days ago Position: head, other (muscles) Quality: other (poor hand-eye coordination) Timing: other (episode) Associated Symptoms: + back pain, No headache, No chest pain, No SOB, No weakness, No numbness Note: Additional symptoms: labored breathing Denies: vision changes Review of Systems See HPI for pertinent positives & negatives. A total of 10 systems reviewed and were otherwise negative. Past Medical & Surgical Medical Problems: (1) Arthritis of right knee (2) Back pain (3) COPD (chronic obstructive pulmonary disease) (4) Cough (5) Hypertension (6) Left knee DJD (7) Lung cancer (8) Paroxysmal supraventricular tachycardia (9) PMR (polymyalgia rheumatica) (10) Seizure (11) UTI (urinary tract infection) (12) Weakness (13) Word finding difficulty Surgical Problems: (1) S/P hysterectomy (2) S/P knee replacement Family History Cancer Heart disease Hypertension Lung disease Stroke Social History Smoking Status: Former Smoker Alcohol Use: none Drug Use: none Marital Status: Housing Status: lives with family Occupation Status: retired Current/Historical Medications Scheduled Albuterol Hfa (Ventolin Hfa), 2 PUFFS INH Q6H Colesevelam Hcl (Welchol), 625 MG PO BID Enalapril Maleate (Vasotec), 10 MG PO BID Fluticasone Furoate-Vilanterol (Breo Ellipta), 1 PUFF INH DAILY Fluticasone Propionate (Fluticasone Propionate), 2 SPRAYS GREGORIO DAILY Hydrochlorothiazide (Hydrochlorothiazide), 25 MG PO QAM Hydroxychloroquine Sulfate (Plaquenil), 200 MG PO DAILY Latanoprost (Xalatan 0.005% Oph Lizz), 1 DROP OPB HS Melatonin (Melatonin Maximum Strengt), 1 TAB PO HS Metoprolol Succinate (Metoprolol Succinate ER), 50 MG PO QAM Metoprolol Succinate (Toprol Xl), 25 MG PO QPM Montelukast Sod (Montelukast Sodium), 10 MG PO DAILY Ondasetron Odt (Zofran Odt), 4 MG SL Q8 Potassium Chloride (Potassium Chloride ER), 20 MEQ PO BID Prednisone (Prednisone), 1 MG PO DAILY Prednisone (Prednisone), 5 MG PO DAILY Tiotropium Arrey (Spiriva Handihaler), 1 CAP INH DAILY Scheduled PRN Acetaminophen (Tylenol), 650 MG PO Q6 PRN for Pain or Fever Ipratropium-Albuterol (Duoneb), 1 TREATMENT INH Q6 PRN for cough/sob Lorazepam (Lorazepam), 1 TAB PO HS PRN for Sleep Polyethylene (Polyethylene Glycol 3350), 17 GM PO DAILY PRN for Constipation Sennosides-Docusate Sodium (Sennalax-S), 1 TAB PO DAILY PRN for Constipation Allergies Coded Allergies: Aspirin (Verified Allergy, Intermediate, HIVES, 02/03/18) Erythromycin (Verified Allergy, Intermediate, HIVES, N/V, 02/03/18) Nitrofurantoin (Verified Allergy, Intermediate, rash, 02/03/18) Sulfa Antibiotics (Verified Allergy, Intermediate, HIVES, 02/03/18) Amoxicillin (Verified Adverse Reaction, Mild, NAUSEA, 02/03/18) Ciprofloxacin (Verified Adverse Reaction, Mild, N/V, 02/03/18) Clavulanic Acid (Verified Adverse Reaction, Mild, VOMITING, 02/03/18) Codeine (Verified Adverse Reaction, Mild, N/V, 02/03/18) Morphine (Verified Adverse Reaction, Mild, VOMITING, 02/03/18) Physical Exam Vital Signs Date Time Temp Pulse Resp B/P (MAP) Pulse Ox O2 Delivery O2 Flow Rate FiO2 02/03/18 15:48 80 28 188/91 94 Nasal Cannula 2.0 02/03/18 15:38 76 18 184/111 94 Room Air 02/03/18 13:43 81 16 186/100 94 Room Air 02/03/18 13:17 81 18 168/99 92 Room Air 02/03/18 12:15 82 02/03/18 12:12 82 02/03/18 12:06 37.1 84 18 171/93 91 Room Air Physical Exam General: Chronically ill-appearing older female in no acute distress, breathing comfortably on room air. Normal speech HEENT: Normal cephalic atraumatic. Pupils are equal round and reactive to light. Extraocular movements are intact. Oropharynx is pink with moist mucous membranes. No swelling of the mouth lips or tongue. Neck: Supple with a midline trachea. No meningeal signs or stiffness, no JVD or bruits. No Stridor. Chest: Clear to auscultation bilaterally. No wheezes or rhonchi. No increased work of breathing. Heart: regular rate and rhythm. Abdomen: Soft nontender, nondistended without rebound guarding or rigidity. Extremities: No cyanosis clubbing or edema. No calf tenderness or assymetry. Legs are mildly weak bilaterally but symmetrical. Spine/Back. Non tender to palpation. No CVA tenderness. Pain in lower lumbar spine. Skin: Good turgor without rashes. Neurologic exam: Cranial nerves two through 12 are intact. Motor and sensation are intact and symmetrical throughout. Medical Decision & Procedures ER Provider Diagnostic Interpretation: Radiology results as stated below per my review and radiologist interpretation: LUMBAR SPINE CT WITHOUT CONTRAST CLINICAL HISTORY: Low back pain. Metastatic lung cancer. COMPARISON STUDY: Chest CT September 07, 2017. TECHNIQUE: Axial images of the lumbar spine were obtained without IV contrast. Sagittal and coronal reconstructions were viewed. FINDINGS: For purposes of numbering on this exam, the L5-S1 disc space is assigned to axial image 266 of 340. Alignment of the lumbar spine is anatomic with the exception of slight anterolisthesis of L4 and L5. Note is made of a fracture of the superior endplate of L1 with mild loss of vertebral body height. This fracture is likely acute to subacute. No additional lumbar spine fractures are noted. There is no significant retropulsion. No extension into the posterior elements is noted. Central canal and neural foramen are suboptimally assessed by CT. There is moderate disc space narrowing with vacuum disc phenomenon at L5-S1. There is disc bulge at this level. There is no evidence for severe central canal stenosis at this level. There is also disc bulge at L4-L5. No suspicious osseous lesion within the lumbar spine is identified by CT. There are multiple mildly enlarged left para-aortic and bilateral common iliac lymph nodes which measure up to 1.2 cm in short axis diameter. IMPRESSION: 1. Acute to subacute fracture involving the superior endplate of L1 without significant retropulsion. No extension into the posterior elements. The appearance favors a benign compression fracture. A pathologic fracture could appear similar although is considered less likely. 2. Multiple mildly enlarged left periaortic and bilateral common iliac lymph nodes which are likely neoplastic and favor metastatic disease although lymphoma could appear similar. Electronically signed by: Vaughn Frost M.D. 02/03/2018 1:58 PM Dictated Date/Time: 02/03/2018 1:[address] OF THE HEAD WITHOUT CONTRAST CLINICAL HISTORY: Increasing weakness and confusion. Metastatic lung cancer. COMPARISON STUDY: Head CT November 13, 2017. TECHNIQUE: Helical axial images of the head were obtained without IV contrast. Automated exposure control was utilized for the study. A dose lowering technique was utilized adhering to the principles of ALARA. FINDINGS: Note is made of a 1.1 cm linear hyperdense focus within the left parietal vertex which has decreased in conspicuity since head CT of November 13, 2017. Otherwise, the appearance of the brain is unchanged. The ventricular system is stable. Basilar cisterns are patent. There are no extra axial collections. Left temporal lobe encephalomalacia is unchanged. Postoperative findings consistent with a left temporal craniotomy with aneurysm clipping is again noted. This is unchanged. A hypodensity within the right basal ganglia is unchanged and could reflect a prominent perivascular space or old lacunar infarct. White matter hypodensity suggests small vessel disease. There may be a 9 mm sclerotic lesion within the right aspect of the clivus. There is no calvarial fracture. IMPRESSION: 1. 1.1 cm hyperdense focus within the left parietal vertex which has decreased in conspicuity since head CT of November 13, 2017. This favors an underlying lesion which may have decreased in size since prior exam although is suboptimally assessed on this unenhanced exam. Otherwise, unchanged appearance of the brain. 2. Possible 9 mm sclerotic metastasis within the right aspect of the clivus. Electronically signed by: Vaughn Frost M.D. 02/03/2018 1:50 PM Dictated Date/Time: 02/03/2018 1:41 PM CHEST ONE VIEW PORTABLE CLINICAL HISTORY: Chest pain. Lung cancer. COMPARISON STUDY: Chest radiograph November 12, [address] September 07, 2017. FINDINGS: Possible sclerotic lesion within the left humeral head is noted. There is no pneumothorax or pleural effusion. Cardiomegaly is unchanged. Asymmetric left lung interstitial thickening persists. This was shown on previous exam. There is no lobar consolidation. IMPRESSION: 1. Persistent asymmetric left lung interstitial thickening which raises the possibility of lymphangitic carcinomatosis. 2. Possible sclerotic lesion within the left humeral head. 3. Stable cardiomegaly. Electronically signed by: Vaughn Frost M.D. 02/03/2018 1:12 PM Dictated Date/Time: 02/03/2018 1:06 PM Laboratory Results Test 02/03/18 13:19 02/03/18 13:23 Immature Granulocyte % (Auto) 1.0 % White Blood Count 11.16 K/uL (4.8-10.8) Red Blood Count 5.07 M/uL (4.2-5.4) Hemoglobin 14.7 g/dL (12.0-16.0) Hematocrit 42.9 % (37-47) Mean Corpuscular Volume 84.6 fL (80-100) Mean Corpuscular Hemoglobin 29.0 pg (25-34) Mean Corpuscular Hemoglobin Concent 34.3 g/dl (32-36) Platelet Count 203 K/uL (130-400) Mean Platelet Volume 8.9 fL (7.4-10.4) Neutrophils (%) (Auto) 84.6 % Lymphocytes (%) (Auto) 7.3 % Monocytes (%) (Auto) 4.5 % Eosinophils (%) (Auto) 2.2 % Basophils (%) (Auto) 0.4 % Neutrophils # (Auto) 9.46 K/uL (1.4-6.5) Lymphocytes # (Auto) 0.81 K/uL (1.2-3.4) Monocytes # (Auto) 0.50 K/uL (0.11-0.59) Eosinophils # (Auto) 0.24 K/uL (0-0.5) Basophils # (Auto) 0.04 K/uL (0-0.2) Immature Granulocyte # (Auto) 0.11 K/uL (0.00-0.02) Prothrombin Time 11.5 SECONDS (9.0-12.0) Prothromb Time International Ratio 1.1 (0.9-1.1) Activated Partial Thromboplast Time 26.8 SECONDS (21.0-31.0) Partial Thromboplastin Ratio 1.0 Urine Color YELLOW Urine Appearance CLEAR (CLEAR) Urine pH 6.5 (4.5-7.5) Urine Specific Erin 1.011 (1.000-1.030) Urine Protein NEG (NEG) Urine Glucose (UA) NEG (NEG) Urine Ketones TRACE (NEG) Urine Occult Blood 1+ (NEG) Urine Nitrite NEG (NEG) Urine Bilirubin NEG (NEG) Urine Urobilinogen NEG (NEG) Urine Leukocyte Esterase NEG (NEG) Urine WBC (Auto) 0 /hpf (0-5) Urine RBC (Auto) 0-4 /hpf (0-4) Urine Hyaline Casts (Auto) 0 /lpf (0-5) Urine Epithelial Cells (Auto) 5-10 /lpf (0-5) Urine Bacteria (Auto) NEG (NEG) Lipase 43 U/L (73-393) Bedside Troponin I < 0.030 ng/ml (0-0.045) Laboratory studies as stated above per my review. Medications Administered Medications (Trade) Dose Ordered Sig/Amos Route Start Time Stop Time Status Last Admin Dose Admin Sodium Chloride 250 ml @ 999 mls/hr Q16M STAT IV 02/03/18 12:48 02/03/18 13:03 DC 02/03/18 12:48 999 MLS/HR Sodium Chloride 1,000 ml @ 100 mls/hr Q10H STAT IV 02/03/18 12:48 02/03/18 18:20 DC 02/03/18 12:48 100 MLS/HR Acetaminophen (Tylenol Tab) 650 mg NOW STAT PO 02/03/18 14:41 02/03/18 14:42 DC 02/03/18 14:41 650 MG ED Course 1244: Past medical records reviewed. The patient was evaluated in room C2B, and a complete history and physical examination were performed. 1248: Administered Sodium Chloride 1000 ml @ 100 mls/hr IV, Sodium Chloride 250 ml @ 999 mls/hr IV. 1354: Discussed the patient's case with Ruma Barker PA-C, [facility]. 1355: I checked on the patient and updated him on his results. I discussed the patient's high blood pressure. 1434: Discussed the patient's case with Alexandra Daley PA-C. The patient will be evaluated for further management. 1441: Administered Acetaminophen 650 mg PO. 1603: Upon reevaluation, the patient is resting. I discussed the results and treatment plan with the patient. She verbalized agreement of the treatment plan. The patient will be evaluated for further management by Alexandra Daley PA-C. Medical Decision Differentials: cancer complication, CVA, COPD, pneumonia, infection, cardiac disease, electrolyte or metabolic abnormality. This patient comes in as described above she is placed in room. 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 Her family think she is been more weak and confused she also been complaining of back pain. She was no fall or trauma. She had extensive workup. She has a brain lesion which was known from before she unfortunately cannot have an MRI due to the metallic magnetic clip in her brain. She was found to have a compression fracture on the lumbar CT there is no retropulsion. This appears most likely consistent from benign cause rather than metastatic. She has no significant electrolyte or metabolic abnormalities. She was found to be mildly hypertensive as well although some this likely from the pain. She has received IV hydration as well as p.o. Tylenol I do think she needs to be admitted for pain management and further treatment and evaluation of her weakness and confusion as well as her lumbar compression fracture and cancer. Medication Reconcilliation Current Medication List: was personally reviewed by me Blood Pressure Screening Patient's blood pressure: Elevated blood pressure (will be further monitored by SHELDON) Consults Time Called: [id number] Consulting Physician: Ruma Barker PA-C, [facility] Returned Call: [phone] Discussed the patient's case with Ruma Barker PA-C, [facility]. Impression Primary Impression: Weakness Additional Impressions: Metastatic cancer Lumbar compression fracture Scribe Attestation The scribe's documentation has been prepared under my direction and personally reviewed by me in its entirety. I confirm that the note above accurately reflects all work, treatment, procedures, and medical decision making performed by me. Departure Information Dispostion Being Evaluated By Hospitalist Referrals FITO MOON (PCP) Patient Instructions My [facility] Problem Qualifiers
[2018-02-03] MEDS ORDERED: ACETAMINOPHEN 325 MG TAB PO STA (14:41)
[2018-02-03] MEDS ORDERED: ENALAPRIL MALEATE 5 MG TAB PO STA (16:23)
[2018-02-03] MEDS ORDERED: ONDANSETRON INJ 2 MG/ML 2 ML VIAL IV PRN (16:30)
[2018-02-03] MEDS ORDERED: METOPROLOL SUCC 25MG EXT REL TAB PO ONE (16:30)
[2018-02-03] MEDS ORDERED: ACET-1311 PO (16:42)
[2018-02-03] MEDS ORDERED: ONDA4TAB10 SL (16:42)
[2018-02-03] MEDS ORDERED: PRED-301 PO (16:42)
[2018-02-03] MEDS ORDERED: SENN1TAB86 PO (16:42)
[2018-02-03] MEDS ORDERED: LORAZEPAM 0.5 MG TAB PO PRN (16:45)
[2018-02-03] MEDS ORDERED: ALBUT/IPRATROP 3MG/0.5MG NEB 3 ML VIAL INH PRN (16:45)
[2018-02-03] MEDS ORDERED: DOCUSATE SODIUM/SENNA 50/8.6MG TAB PO PRN (17:45)
[2018-02-03 17:54] VITALS: BP 188/95; PULSE 76; TEMP 37.1; O2SAT 97
[2018-02-03 18:00] VITALS: BP 188/95; PULSE 76; TEMP 37.1; O2SAT 97
[2018-02-03] MEDS ORDERED: SODIUM CHLORIDE 0.9% 1000ML 1,000 ML IV SCH (18:30)
[2018-02-03] MEDS ORDERED: POLYETHYLENE (MIRALAX) 17 GM PACK PO ONE (19:00)
[2018-02-03] MEDS ORDERED: ACETAMINOPHEN IV 650 MG in EMPTY BAG 0 ML IV PRN (19:00)
--- NOTE | 2018-02-03 19:11 | History and Physical ---
History & Physical Date & Time of Service: Feb 03, 2018 at 16:44 Chief Complaint: Gen Illness Primary Care Physician: Casa Bradley D.OSimba History of Present Illness Source: patient, family, clinic records, hospital records Pt is 82 y/o F with PMH COPD, HTN, PMR lung CA with possible brain metastasis and others listed below presented to ER with complaint of increased confusion & increased back pain. History obtained from patient's family secondary to patient's history of problems with short-term memory loss. Patient is currently residing at [facility] for the past 7 weeks. Has it was too difficult for her to care for patient at home. Patient with history hospitalization 11/12/17-11/14/17 for possible brain metastasis versus hemorrhage. She was discharged to [facility] and then went back home now is at [facility]. Family reports for the past 3 weeks patient has been complaining of mid and low back pain and trial of physical therapy was started. Reports patient takes Tylenol which seems to control pain. Patient ambulates with walker. Patient's states 2-3 days ago noticed she was having difficult with hand eye coordination and was having difficulty using her walker and locking and nonlocking the walker. States seems to have increased confusion memory problems over past couple of weeks. He reports she appeared to have some labored breathing this morning. Not on home oxygen. Patient has been off of Keppra, no reported seizures. Denies any other recent medicine changes. Reports history of constipation, usually resolved with meds and prune juice. No BM for 2 days. Patient with reported chronic poor appetite. Has been having chronic weakness. reports noticing increased poor appetite and increased weakness the week following Ketruda treatments. Patient with reported weight loss since last year. Reports last week patient had her 6th Keytruda treatment. Patient was scheduled to have a PET scan on 02/06/18. Denies known fever/chills, diaphoresis, vomiting, MCMAHAN, syncope, falls, hemoptysis, cough , choking, reported abdominal pain, extremity edema, rashes, urinary symptoms. Patient was reporting increased back pain after CT scan in ER today and then received acetaminophen and since patient reports has been pain-free and is denying any other complaints. Past Medical/Surgical History Medical Problems: (1) Arthritis of right knee Status: Chronic (2) COPD (chronic obstructive pulmonary disease) Status: Chronic (3) Hypertension Status: Chronic (4) Left knee DJD Status: Chronic (5) Paroxysmal supraventricular tachycardia Status: Chronic (6) PMR (polymyalgia rheumatica) Status: Chronic (7) Seizure Status: Resolved (8) UTI (urinary tract infection) Status: Resolved Surgical Problems: (1) S/P hysterectomy Status: Resolved (2) S/P knee replacement Status: Resolved Family History Cancer Heart disease Hypertension Lung disease Stroke Social History Smoking Status: Former Smoker Smokeless Tobacco Use: No Alcohol Use: none Drug Use: none Marital Status: Housing status: other ([employer]) Occupational Status: retired Allergies Coded Allergies: Aspirin (Verified Allergy, Intermediate, HIVES, 02/03/18) Erythromycin (Verified Allergy, Intermediate, HIVES, N/V, 02/03/18) Nitrofurantoin (Verified Allergy, Intermediate, rash, 02/03/18) Sulfa Antibiotics (Verified Allergy, Intermediate, HIVES, 02/03/18) Amoxicillin (Verified Adverse Reaction, Mild, NAUSEA, 02/03/18) Ciprofloxacin (Verified Adverse Reaction, Mild, N/V, 02/03/18) Clavulanic Acid (Verified Adverse Reaction, Mild, VOMITING, 02/03/18) Codeine (Verified Adverse Reaction, Mild, N/V, 02/03/18) Morphine (Verified Adverse Reaction, Mild, VOMITING, 02/03/18) Home Medications Scheduled Albuterol Hfa (Ventolin Hfa), 2 PUFFS INH Q6H Colesevelam Hcl (Welchol), 625 MG PO BID Enalapril Maleate (Vasotec), 10 MG PO BID Fluticasone Furoate-Vilanterol (Breo Ellipta), 1 PUFF INH DAILY Fluticasone Propionate (Fluticasone Propionate), 2 SPRAYS GREGORIO DAILY Hydrochlorothiazide (Hydrochlorothiazide), 25 MG PO QAM Hydroxychloroquine Sulfate (Plaquenil), 200 MG PO DAILY Latanoprost (Xalatan 0.005% Oph Lizz), 1 DROP OPB HS Melatonin (Melatonin Maximum Strengt), 1 TAB PO HS Metoprolol Succinate (Metoprolol Succinate ER), 50 MG PO QAM Metoprolol Succinate (Toprol Xl), 25 MG PO QPM Montelukast Sod (Montelukast Sodium), 10 MG PO DAILY Ondasetron Odt (Zofran Odt), 4 MG SL Q8 Potassium Chloride (Potassium Chloride ER), 20 MEQ PO BID Prednisone (Prednisone), 1 MG PO DAILY Prednisone (Prednisone), 5 MG PO DAILY Tiotropium [place] (Spiriva Handihaler), 1 CAP INH DAILY Scheduled PRN Acetaminophen (Tylenol), 650 MG PO Q6 PRN for Pain or Fever Ipratropium-Albuterol (Duoneb), 1 TREATMENT INH Q6 PRN for cough/sob Lorazepam (Lorazepam), 1 TAB PO HS PRN for Sleep Polyethylene (Polyethylene Glycol 3350), 17 GM PO DAILY PRN for Constipation Sennosides-Docusate Sodium (Sennalax-S), 1 TAB PO DAILY PRN for Constipation Review of Systems See HPI for pertinent positives & negatives. Further review of systems unable to be obtained secondary to patient's mental status Physical Exam Vital Signs Date Time Temp Pulse Resp B/P (MAP) Pulse Ox O2 Delivery O2 Flow Rate FiO2 02/03/18 15:48 80 28 188/91 94 Nasal Cannula 2.0 02/03/18 15:38 76 18 184/111 94 Room Air 02/03/18 13:43 81 16 186/100 94 Room Air 02/03/18 13:17 81 18 168/99 92 Room Air 02/03/18 12:15 82 02/03/18 12:12 82 02/03/18 12:06 37.1 84 18 171/93 91 Room Air General Appearance: no apparent distress (Lying on right side in bed), + thin Head: normocephalic, atraumatic Eyes: normal inspection, PERRL, sclerae normal ENT: hearing grossly normal, pharynx normal, + pertinent finding (Mucous membranes slightly dry) Neck: supple, trachea midline Respiratory/Chest: no respiratory distress, no accessory muscle use, + decreased breath sounds Cardiovascular: regular rate, rhythm, normal peripheral pulses Abdomen/GI: normal bowel sounds, non tender, soft Back: + pertinent finding (No tenderness to palpation at this time (patient was medicated with Tylenol prior to exam)) Extremities/Musculoskelatal: no pedal edema, non-tender, + pertinent finding ( Bilateral pedal pulls and pushes intact, flexion of bilateral hips intact, flexion and extension of bilateral knees intact. Distal pulses intact, brisk capillary refill, sensation to light touch) Neurologic/Psych: alert, + pertinent finding (Patient is pleasantly confused) Skin: warm/dry Diagnostics Laboratory Results Results Past 24 Hours Test 02/03/18 13:19 02/03/18 13:23 Range/Units White Blood Count 11.16 4.8-10.8 K/uL Red Blood Count 5.07 4.2-5.4 M/uL Hemoglobin 14.7 12.0-16.0 g/dL Hematocrit 42.9 37-47 % Mean Corpuscular Volume 84.6 80-100 fL Mean Corpuscular Hemoglobin 29.0 25-34 pg Mean Corpuscular Hemoglobin Concent 34.3 32-36 g/dl Platelet Count 203 130-400 K/uL Mean Platelet Volume 8.9 7.4-10.4 fL Neutrophils (%) (Auto) 84.6 % Lymphocytes (%) (Auto) 7.3 % Monocytes (%) (Auto) 4.5 % Eosinophils (%) (Auto) 2.2 % Basophils (%) (Auto) 0.4 % Neutrophils # (Auto) 9.46 1.4-6.5 K/uL Lymphocytes # (Auto) 0.81 1.2-3.4 K/uL Monocytes # (Auto) 0.50 0.11-0.59 K/uL Eosinophils # (Auto) 0.24 0-0.5 K/uL Basophils # (Auto) 0.04 0-0.2 K/uL RDW Standard Deviation 45.7 36.4-46.3 fL RDW Coefficient of Variation 14.9 11.5-14.5 % Immature Granulocyte % (Auto) 1.0 % Immature Granulocyte # (Auto) 0.11 0.00-0.02 K/uL Prothrombin Time 11.5 9.0-12.0 SECONDS Prothromb Time International Ratio 1.1 0.9-1.1 Activated Partial Thromboplast Time 26.8 21.0-31.0 SECONDS Partial Thromboplastin Ratio 1.0 Urine Color YELLOW Urine Appearance CLEAR CLEAR Urine pH 6.5 4.5-7.5 Urine Specific [place] 1.011 1.000-1.030 Urine Protein NEG NEG Urine Glucose (UA) NEG NEG Urine Ketones TRACE NEG Urine Occult Blood 1+ NEG Urine Nitrite NEG NEG Urine Bilirubin NEG NEG Urine Urobilinogen NEG NEG Urine Leukocyte Esterase NEG NEG Urine WBC (Auto) 0 0-5 /hpf Urine RBC (Auto) 0-4 0-4 /hpf Urine Hyaline Casts (Auto) 0 0-5 /lpf Urine Epithelial Cells (Auto) 5-10 0-5 /lpf Urine Bacteria (Auto) NEG NEG Sodium Level 133 136-145 mmol/L Potassium Level 4.2 3.5-5.1 mmol/L Chloride Level 96 98-107 mmol/L Carbon Dioxide Level 27 21-32 mmol/L Anion Gap 10.0 3-11 mmol/L Blood Urea Nitrogen 10 7-18 mg/dl Creatinine 0.73 0.60-1.20 mg/dl Est Creatinine Clear Calc Drug Dose 55.6 ml/min Estimated GFR () 88.9 Estimated GFR (Non- 76.7 BUN/Creatinine Ratio 13.7 10-20 Random Glucose 109 70-99 mg/dl Calcium Level 9.0 8.5-10.1 mg/dl Total Bilirubin 0.9 0.2-1 mg/dl Direct Bilirubin 0.2 0-0.2 mg/dl Aspartate Amino Transf (AST/SGOT) 24 15-37 U/L Alanine Aminotransferase (ALT/SGPT) 26 12-78 U/L Alkaline Phosphatase 245 45-117 U/L Total Protein 7.2 6.4-8.2 gm/dl Albumin 3.3 3.4-5.0 gm/dl Lipase 43 73-393 U/L Bedside Troponin I < 0.030 0-0.045 ng/ml Microbiology Results 02/03/18 Urine Culture, Received Pending Diagnostic Radiology CXR: IMPRESSION: 1. Persistent asymmetric left lung interstitial thickening which raises the possibility of lymphangitic carcinomatosis. 2. Possible sclerotic lesion within the left humeral head. 3. Stable cardiomegaly CT HEAD: IMPRESSION: 1. 1.1 cm hyperdense focus within the left parietal vertex which has decreased in conspicuity since head CT of November 13, 2017. This favors an underlying lesion which may have decreased in size since prior exam although is suboptimally assessed on this unenhanced exam. Otherwise, unchanged appearance of the brain. 2. Possible 9 mm sclerotic metastasis within the right aspect of the clivus CT L-SPINE: IMPRESSION: 1. Acute to subacute fracture involving the superior endplate of L1 without significant retropulsion. No extension into the posterior elements. The appearance favors a benign compression fracture. A pathologic fracture could appear similar although is considered less likely. 2. Multiple mildly enlarged left periaortic and bilateral common iliac lymph nodes which are likely neoplastic and favor metastatic disease although lymphoma could appear similar. Impression Assessment and Plan Pt is 82 y/o F with PMH COPD, HTN, PMR lung CA with possible brain metastasis and others listed below presented to ER with complaint of increased confusion & increased back pain. CONFUSION pt with chronic confusion and memory problems with reported worsening past couple of weeks by family. recent hx possible brain mets vs subarachnoid hemorrhage In ER pt afebrile, P: 84, R: 18, BP: 171/93, 91-94% on RA. WBC: 11. Na: 133, Gluc: 109. POC troponin negative. UA unremarkable. CT HEAD: 1.1 cm hyperdense focus within the left parietal vertex which has decreased in conspicuity since head CT of November 13, 2017. This favors an underlying lesion which may have decreased in size since prior exam although is suboptimally assessed on this unenhanced exam. Otherwise, unchanged appearance of the brain. Possible 9 mm sclerotic metastasis within the right aspect of the clivus Pt was given 250ml NSS bolus then at 100ml/hr. No focal deficits noted -pending urine culture -monitor -neuro consult -cbc, electrolyte panel in am LUMBAR SPINE COMPRESSION FRACTURE Reported mid and lower back pain for past couple of weeks. Denies known falls. In ER CT L-SPINE: Acute to subacute fracture involving the superior endplate of L1 without significant retropulsion. No extension into the posterior elements. The appearance favors a benign compression fracture. A pathologic fracture could appear similar although is considered less likely. Multiple mildly enlarged left periaortic and bilateral common iliac lymph nodes which are likely neoplastic and favor metastatic disease although lymphoma could appear similar. -Tylenol IV prn pain. Reported by family that pt intolerances to narcotic pain meds in past -PT/OT HTN In ER BP: 171/93 up to 186/100. May be elevated secondary to pain. Pt was given Tyelnol with reported improvement of pain and no apparent distress -dose her night BP meds now - enalapril, metoprolol -continue enalapril, metoprolol, HCTZ -monitor CONSTIPATION chronic constipation, no BM for couple of days. No vomiting, no apparent tenderness to palpation, bowel sounds intact on exam -KUB to r/o obstruction -miralax dose now and prn H/O LUNG CA follows with Dr Dodd last week had 6th treatment of keytruda In ER CXR: Persistent asymmetric left lung interstitial thickening which raises the possibility of lymphangitic carcinomatosis. Possible sclerotic lesion within the left humeral head. Stable cardiomegaly COPD No cough or fever. no apparent respiratory distress. 91-94% on room air. -continue home inhalers, Singulair PMR -continue prednisone, hydroxychloroquine DVT Prophylaxis -SCDs Admit tele Full Code as per discussion with pt and pt's family Follows with Dr Casa Bradley for routine care Pt was seen with Dr Mason. See addendum ATTENDING ADDENDUM : pt seen and examined, care co-ordinated with Ruma De Leon PA-C labs and images reviews This 82-year-old female with history metastatic lung cancer with brain metastases Sent from personal assisted we note house confusion, disorientation History limited patient was not able to provide meaningful information Patient was on Keppra prior for concern of possible seizure with brain metastases Was taking of from Keppra [address] Phillips as patient was found to be more confused disoriented, sedated No report of seizure activity Present patient is on palliative chemo with Keytruda Baseline patient is ambulatory, uses a walker Past 2-3 days has been noted patient was having increased difficulty with hand eye coordination using her walker and locking and unlocking it lab work is unremarkable, UA negative, CT head without contrast shows 1.1 cm hypodense focus within the left parietal vertex which has decreased in conspicuity since head CT on November 13, 2017 PHYSICAL EXAM General, elderly female no apparent distress HEENT: Pupils reactive to light, sclera nonicteric Neck no JVD no carotid bruit, trachea midline Lungs: Clear to auscultate Heart: Regular S1-S2 Abdomen: Mildly distended, mild tenderness on lower abdomen area, bowel sounds active Neuro: No focal neurological deficit, patient has short-term memory loss, unable to tell me where she is at, thinks that she is in the center [place]- personal assisted Gait not assessed ASSESSMENT AND PLAN CONFUSION/DISORIENTATION/POSSIBLE METABOLIC ENCEPHALOPATHY -Is baseline short-term memory loss, with gait disturbance secondary to metastatic brain lesion from lung cancer -No seizure activity noted as per [facility] staff -No sign of infection, -Reports of poor p.o. intake, no nausea vomiting or diarrhea -Patient was given IV fluids in the ER -Neurology consulted for assessment HYPERTENSION Present with hypotensive episode -Continue with outpatient antihypertensive -Monitoring telemetry Lung CA: With metastases to brain Follows with hematology oncology Dr. Dodd Last week had sixth treatment of Keytruda -Chest x-ray: Persistent symmetric left lung interstitial thickening with raises the possibility of lymphangitic carcinomatosis. Possible sclerotic lesion within the left humeral head Patient patient is scheduled to have PET scan on 02/06/2018 Overall prognosis remains poor CODE STATUS full code-which needs to be re addressed Patient's overall prognosis remains very poor Patient's family will need to have a a discussion with hematology oncology- regarding prognosis/overall life expectancy to provide realistic goal of care Please refer to further documentation by Radha Barker PA-C Discussion of other chronic issues Cora Mason MD Resuscitation Status VTE Prophylaxis Will order VTE Prophylaxis: Yes Additional Copies To Casa Bradley, BreeO.
[2018-02-03] MEDS: POTASSIUM CHLORIDE 20 MEQ TABCR PO SCH (20:15)
[2018-02-03] MEDS: LATANOPROST 0.005% OP SOLN 2.5 ML BTL OPB SCH (20:15)
[2018-02-03] MEDS: ACETAMINOPHEN 325 MG TAB PO PRN (20:17)
[2018-02-03] MEDS: ALBUTEROL HFA 8 GM INHALER INH SCH ×2 (20:18→22:45)
[2018-02-03] MEDS ORDERED: COLESEVELAM HCL 625 MG PO SCH (21:00)
[2018-02-03] MEDS ORDERED: NON-FORMULARY MEDICATION (Melatonin (Melatonin Maximum Strengt) 1 TAB) PO SCH (21:00)
[2018-02-03 23:28] VITALS: BP 151/82; PULSE 80; TEMP 36.5; O2SAT 97
[2018-02-04] VITALS (9 sets, daily range): BP systolic 123–177; BP diastolic 77–95; PULSE 66–84; TEMP 36.3–36.7; O2SAT 91–97; Ht 167.6 cm; Wt 64.8 kg
[2018-02-04] MEDS: ALBUTEROL HFA 8 GM INHALER INH SCH ×4 (04:45→22:45)
[2018-02-04 06:12] LABS: HEMOGLOBIN 13.8 g/dL (12.0-16.0); MEAN CORPUSCULAR HEMOGLOBIN 28.9 pg (25-34); MEAN CORPUSCULAR HGB CONC 33.7 g/dl (32-36); MEAN PLATELET VOLUME 8.8 fL (7.4-10.4); PLATELET COUNT 187 K/uL (130-400); RED CELL DISTRIBUTION WIDTH CV 14.8 % (11.5-14.5); RED CELL DISTRIBUTION WIDTH SD 46.1 fL (36.4-46.3); WHITE BLOOD COUNT 10.55 K/uL (4.8-10.8)
[2018-02-04 06:53] LABS: ALBUMIN 2.8 gm/dl (3.4-5.0); CALCIUM 8.3 mg/dl (8.5-10.1); CREATININE 0.61 mg/dl (0.60-1.20); POTASSIUM 3.5 mmol/L (3.5-5.1); TOTAL PROTEIN 6.2 gm/dl (6.4-8.2)
--- NOTE | 2018-02-04 07:14 | Neurology Consultation ---
Neurology Consultation Date of Consultation: Feb 04, 2018. Attending Physician: Cora Mason M.D. Primary Care Physician: Casa Bradley D.O. History of Present Illness Source: patient, family, hospital records An 82 year old woman with a past medical history of metastatic lung cancer on immunotherapy (keytruda), hypertension, and COPD who presented to the ED for concerns of progressive confusion. Patient was recently admitted in October 2017 and evaluated by my colleagues for possible brain metastasis. SHe is unable to get an MRI due to prior aneurysmal clipping. She has had several CT brain non contrast, and EEG that showed diffuse slowing and focal slowing on the left. She was started on low dose Keppra for possible seizures. 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 She currently resides at a care home and has been having evening confusion and agitation. She has been receiving Ativan 0.5 mg nightly. Past Medical/Surgical History Medical Problems: (1) Dehydration Status: Acute (2) Dysarthria Status: Acute (3) Lumbar compression fracture Status: Acute (4) Lung neoplasm Status: Acute (5) Metastatic cancer Status: Acute (6) Pneumonia Status: Acute (7) Subarachnoid hemorrhage Status: Acute (8) Subarachnoid hemorrhage Status: Acute (9) UTI (urinary tract infection) Status: Acute Family History Cancer Heart disease Hypertension Lung disease Stroke Social History Smoking Status: Never smoker Smokeless Tobacco Use: No Alcohol Use: none Drug Use: none Marital Status: Housing Status: lives with family Occupation Status: retired Allergies Coded Allergies: Aspirin (Verified Allergy, Intermediate, HIVES, 02/03/18) Erythromycin (Verified Allergy, Intermediate, HIVES, N/V, 02/03/18) Nitrofurantoin (Verified Allergy, Intermediate, rash, 02/03/18) Sulfa Antibiotics (Verified Allergy, Intermediate, HIVES, 02/03/18) Amoxicillin (Verified Adverse Reaction, Mild, NAUSEA, 02/03/18) Ciprofloxacin (Verified Adverse Reaction, Mild, N/V, 02/03/18) Clavulanic Acid (Verified Adverse Reaction, Mild, VOMITING, 02/03/18) Codeine (Verified Adverse Reaction, Mild, N/V, 02/03/18) Morphine (Verified Adverse Reaction, Mild, VOMITING, 02/03/18) Current Inpatient Medications Current Inpatient Medications Medications (Trade) Dose Ordered Sig/Amos Route Start Time Stop Time Status Last Admin Dose Admin Acetaminophen (Tylenol Tab) 650 mg Q4H PRN PO 02/03/18 16:30 03/05/18 16:29 02/03/18 20:17 650 MG Ondansetron HCl (Zofran Inj) 4 mg Q6H PRN IV 02/03/18 16:30 03/05/18 16:29 Albuterol (Ventolin Hfa Inhaler) 2 puffs Q6H INH 02/03/18 16:45 03/05/18 16:44 02/03/18 20:18 2 PUFFS Enalapril Maleate (Vasotec Tab) 10 mg BID PO 02/04/18 09:00 03/06/18 08:59 Fluticasone Propionate (Flonase Nasal [place]) 2 sprays DAILY GREGORIO 02/04/18 09:00 03/06/18 08:59 Hydroxychloroquine Sulfate (Plaquenil Tab) 200 mg DAILY PO 02/04/18 09:00 03/06/18 08:59 Albuterol/ Ipratropium (Duoneb) 3 ml Q6H PRN INH 02/03/18 16:45 03/05/18 16:44 Latanoprost (Xalatan Oph Soln) 1 drops HS OPB 02/03/18 21:00 03/05/18 20:59 Lorazepam (Ativan Tab) 0.5 mg HS PRN PO 02/03/18 16:45 03/05/18 16:44 02/03/18 20:15 0.5 MG Metoprolol Succinate (Toprol Xl Tab) 50 mg QAM PO 02/04/18 09:00 03/06/18 08:59 Metoprolol Succinate (Toprol Xl Tab) 25 mg QPM PO 02/04/18 21:00 03/06/18 20:59 Montelukast Sodium (Singulair Tab) 10 mg DAILY PO 02/04/18 09:00 03/06/18 08:59 Prednisone (PredniSONE TAB) 1 mg DAILY PO 02/04/18 09:00 03/06/18 08:59 Prednisone (PredniSONE TAB) 5 mg DAILY PO 02/04/18 09:00 03/06/18 08:59 Senna/Docusate Sodium (Senokot S Tab) 1 tab DAILY PRN PO 02/03/18 17:45 03/05/18 17:44 Tiotropium [place] (Spiriva Handihaler Inhaler) 1 puff DAILY INH 02/04/18 09:00 03/06/18 08:59 Polyethylene (Miralax Powder Packet) 17 gm DAILY PRN PO 02/03/18 18:00 03/05/18 17:59 Potassium Chloride (Klor-Con Tab) 20 meq BID PO 02/03/18 21:00 03/05/18 20:59 Miscellaneous Information (Order Awaiting Action) 1 ea QS N/A 02/04/18 00:00 03/06/18 00:00 Miscellaneous Information (Order Awaiting Action) 1 ea QS N/A 02/04/18 00:00 03/06/18 00:00 Acetaminophen 650 mg/Empty Bag 65 ml @ 260 mls/hr Q6H PRN IV 02/03/18 19:00 03/05/18 18:59 Review of Systems Constitutional: + weakness Neurologic: + memory loss, + weakness Physical Exam Vital Signs (Past 24 Hrs): Date Time Temp Pulse Resp B/P (MAP) Pulse Ox O2 Delivery O2 Flow Rate FiO2 02/04/18 00:00 Nasal Cannula 2.0 02/03/18 23:28 36.5 80 20 151/82 (105) 97 Nasal Cannula 2.0 02/03/18 18:00 37.1 76 20 188/95 97 Nasal Cannula 4.0 02/03/18 17:54 37.1 76 20 188/95 (126) 97 Nasal Cannula 4.0 02/03/18 17:06 91 18 168/95 92 Nasal Cannula 2.0 02/03/18 15:48 80 28 188/91 94 Nasal Cannula 2.0 02/03/18 15:38 76 18 184/111 94 Room Air 02/03/18 13:43 81 16 186/100 94 Room Air 02/03/18 13:17 81 18 168/99 92 Room Air 02/03/18 12:15 82 02/03/18 12:12 82 02/03/18 12:06 37.1 84 18 171/93 91 Room Air Physical Exam: Constitutional: appearance nourished, healthy and normal Ears, Nose, Mouth and Throat: mucous membranes moist, no injection and skin normal, eyes normal Cardiovascular: normal S-1 and S-2 and regular rate and rhythm Respiratory: clear to auscultation Musculoskeletal: no peripheral edema Skin: no rashes seen NEUROLOGIC EXAMINATION: Mental status: awake, alert, disoriented to month and year, disoriented to season and date, Knows the president Alert and interactive Mild dysarthria, comprehension intact She can repeat, following simple commands Registration 3/3 Recall 0/3 EOMI intact, limited upgaze, No nystagmus, pupils equal, blinks to threat Tongue midline, face symmetric, should shrug ok Coordination: No ataxia with finger to nose Gait/Stance: Sitting in chair eating a snack, gait deferred Motor: some give way weakness, but symmetrical No clonus, reflexes hypoactive at the knees and ankles Laboratory Results Past 24 Hours: 02/04/18 05:35 02/04/18 05:35 Test 02/03/18 13:19 02/03/18 13:23 02/04/18 05:35 Immature Granulocyte % (Auto) 1.0 % White Blood Count 11.16 K/uL (4.8-10.8) Red Blood Count 5.07 M/uL (4.2-5.4) 4.77 M/uL (4.2-5.4) Hemoglobin 14.7 g/dL (12.0-16.0) Hematocrit 42.9 % (37-47) Mean Corpuscular Volume 84.6 fL (80-100) 86.0 fL (80-100) Mean Corpuscular Hemoglobin 29.0 pg (25-34) 28.9 pg (25-34) Mean Corpuscular Hemoglobin Concent 34.3 g/dl (32-36) 33.7 g/dl (32-36) Platelet Count 203 K/uL (130-400) Mean Platelet Volume 8.9 fL (7.4-10.4) 8.8 fL (7.4-10.4) Neutrophils (%) (Auto) 84.6 % Lymphocytes (%) (Auto) 7.3 % Monocytes (%) (Auto) 4.5 % Eosinophils (%) (Auto) 2.2 % Basophils (%) (Auto) 0.4 % Neutrophils # (Auto) 9.46 K/uL (1.4-6.5) Lymphocytes # (Auto) 0.81 K/uL (1.2-3.4) Monocytes # (Auto) 0.50 K/uL (0.11-0.59) Eosinophils # (Auto) 0.24 K/uL (0-0.5) Basophils # (Auto) 0.04 K/uL (0-0.2) Immature Granulocyte # (Auto) 0.11 K/uL (0.00-0.02) Prothrombin Time 11.5 SECONDS (9.0-12.0) Prothromb Time International Ratio 1.1 (0.9-1.1) Activated Partial Thromboplast Time 26.8 SECONDS (21.0-31.0) Partial Thromboplastin Ratio 1.0 Urine Color YELLOW Urine Appearance CLEAR (CLEAR) Urine pH 6.5 (4.5-7.5) Urine Specific [place] 1.011 (1.000-1.030) Urine Protein NEG (NEG) Urine Glucose (UA) NEG (NEG) Urine Ketones TRACE (NEG) Urine Occult Blood 1+ (NEG) Urine Nitrite NEG (NEG) Urine Bilirubin NEG (NEG) Urine Urobilinogen NEG (NEG) Urine Leukocyte Esterase NEG (NEG) Urine WBC (Auto) 0 /hpf (0-5) Urine RBC (Auto) 0-4 /hpf (0-4) Urine Hyaline Casts (Auto) 0 /lpf (0-5) Urine Epithelial Cells (Auto) 5-10 /lpf (0-5) Urine Bacteria (Auto) NEG (NEG) Lipase 43 U/L (73-393) Bedside Troponin I < 0.030 ng/ml (0-0.045) RDW Standard Deviation 46.1 fL (36.4-46.3) RDW Coefficient of Variation 14.8 % (11.5-14.5) Anion Gap 9.0 mmol/L (3-11) Est Creatinine Clear Calc Drug Dose 66.5 ml/min Estimated GFR () 97.8 Estimated GFR (Non- 84.4 BUN/Creatinine Ratio 14.5 (10-20) Calcium Level 8.3 mg/dl (8.5-10.1) Total Bilirubin 1.1 mg/dl (0.2-1) Direct Bilirubin 0.2 mg/dl (0-0.2) Aspartate Amino Transf (AST/SGOT) 18 U/L (15-37) Alanine Aminotransferase (ALT/SGPT) 21 U/L (12-78) Alkaline Phosphatase 207 U/L (45-117) Total Protein 6.2 gm/dl (6.4-8.2) Albumin 2.8 gm/dl (3.4-5.0) Globulin 3.4 gm/dl (2.5-4.0) Albumin/Globulin Ratio 0.8 (0.9-2) Imaging CT Brain non contrast: prior encephalomalacia aneurysmal clip,right parietal hyperdensity Impression I believe this patient has a dementia (likely alzheimer type) in the setting of metastatic lung cancer which is supported by her history of cognitive impairment , memory loss, and sundowning. I suspect her metastasis to the EARTH SCIENCE TECHNICIAN is also contributing as well as brain radiation treatment. I would recommend to discontinue nightly Ativan. Benzodiazepine medications often have a paradoxical affect in the elderly and may be contributing to her confusion and memory problems. This is also likely interrupting the quality of her sleep. Discussed frequent lifestyle modifications for sundowning including avoiding sedating medications, frequent re-orientation, and avoiding day time naps. If needed, low dose Seroquel 12.5-25 mg PRN can be given at night (titrate as tolerated). Family denies cardiac issues. Low dose Depakote 250 mg would also be an option. In regards to her dementia, I also discussed acetylcholinesterase inhibitor use. If family desires, she can certainly be started on Donepezil 5 mg daily. I discussed AE including N/V. She can follow up in out clinic with Mary Valerio or myself after discharge. Plan Stop Ativan Start Donepezil 5 mg daily if family wishes Add Seroquel 12.5 mg PRN nightly for agitation. Recommend PT/OT for evaluation of discharge needs.
--- NOTE | 2018-02-04 08:17 | DIAGNOSTIC IMAGING REPORT ---
KUB CLINICAL HISTORY: constipation COMPARISON STUDY: November 2007 FINDINGS: There is no pathologic bowel dilatation. There is scattered stool present throughout the colon. There are no calcifications suspicious for renal calculi. There are suspected right-sided pleurodiaphragmatic calcifications. There are progressive advanced arthritic changes within the left hip. IMPRESSION: No evidence of pathologic bowel dilatation. Fecal load is within normal limits for age. Electronically signed by: German Askew M.D. 02/04/2018 8:15 AM Dictated Date/Time: 02/04/2018 8:14 AM
[2018-02-04] MEDS: TIOTROPIUM BROMIDE 5 PUFF/90 MCG INH INH SCH (08:25)
[2018-02-04] MEDS: ENALAPRIL MALEATE 10 MG TAB PO SCH ×2 (08:26→20:23)
[2018-02-04] MEDS: HYDROXYCHLOROQUINE SULFATE 200 MG TAB PO SCH (08:26)
[2018-02-04] MEDS: MONTELUKAST SOD 10 MG TAB PO SCH (08:26)
[2018-02-04] MEDS: POTASSIUM CHLORIDE 20 MEQ TABCR PO SCH ×2 (08:26→20:25)
[2018-02-04] MEDS: POLYETHYLENE (MIRALAX) 17 GM PACK PO PRN (08:26)
[2018-02-04] MEDS: METOPROLOL SUCC 50MG EXT REL TAB PO SCH (08:26)
[2018-02-04] MEDS: FLUTICASONE PROPIONATE NA SPR 16 GM BTL NAE SCH (08:26)
[2018-02-04] MEDS: ACETAMINOPHEN 325 MG TAB PO PRN ×2 (08:27→20:20)
[2018-02-04] MEDS ORDERED: HYDROCHLOROTHIAZIDE 25 MG TAB PO SCH (09:00)
[2018-02-04] MEDS ORDERED: NON-FORMULARY MEDICATION (Fluticasone Furoate-Vilanterol (Breo Ellipta) 1 PUFF) INH SCH (09:00)
--- NOTE | 2018-02-04 13:06 | Clinical Documentation Query ---
CLINICAL DOCUMENTATION QUERY Dr. FARMER, In your clinical opinion is this patient being managed for: ( x) Moderate protein-calorie malnutrition ( ) Severe protein-calorie malnutrition ( ) Not Agree ( ) Other explanation of clinical findings (No explanation is considered a No Response) ( ) Unable to determine ( ) Need to Discuss (Phone CDS or qliq) (No discussion is considered a No Response) The medical record reflects the following clinical findings, treatment, and risk factors. Clinical Indicators: 82 yo female presenting with weakness and a lumbar spine compression fx. Review of server service assistant note indicates pt has had a wt loss of 12 lbs (7.57 kg) in the past 3 months. Both patient and family have reported a decreased appetite. Meal intake x 1 day 50-75% of needs. Treatment: snacks, smaller more frequent meals, consider removal of AHA dietary restriction, monitor labs, intake, wts Risk Factors: lung cancer with possible brain mets, COPD Moderate Malnutrition Criteria: (2 criteria needed) Energy intake: <75% of estimated energy requirement for > 7 days Wt loss: 1-2% in 1 wk, 5% in 1 month, or 7.5% in 3 months Body fat: mild loss of SQ fat from the orbits, triceps or fat overlying the ribs Muscle mass: mild muscle wasting at the temples, clavicles, shoulders, interosseous spaces, scapula, thigh, calf Fluid accumulation: mild localized or generalized edema of the extremities, vulva, scrotum-wt loss may be masked by edema Wheel And Caster Repairer strength: Not applicable Severe Malnutrition Criteria: (2 criteria needed) Energy intake: <50% of estimated energy requirement for > 5 days Wt loss: 1-2% in 1 wk, 5% in 1 month, or 7.5% in 3 months Body fat: moderate loss of SQ fat from the orbits, triceps or fat overlying the ribs Muscle mass: moderate muscle wasting at the temples, clavicles, shoulders, interosseous spaces, scapula, thigh, calf Fluid accumulation: moderate to severe localized or generalized edema of the extremities, vulva, scrotum-wt loss may be masked by edema Wheel And Caster Repairer strength: measurably decreased per the devices standards Please clarify and document your clinical opinion in the progress notes and discharge summary. Terms such as "probable", "suspected", "likely", "questionable", "possible", or "still to be ruled out" are acceptable. IF IN AGREEMENT, YOU MUST DOCUMENT ABOVE DIAGNOSTIC STATEMENT IN DAILY PROGRESS NOTES AND DISCHARGE SUMMARY. This document is not part of the patient's record. Thank You, Anju Uriostegui, RN [phone]
--- NOTE | 2018-02-04 19:12 | Progress Note ---
Internal Med Progress Note Date of Service: Feb 04, 2018. Provider Documentation: SUBJECTIVE: Patient is very pleasant, offers no complaint today, denies of any headache More oriented, knows that she is in hospital Was transferred from personal [facility] yesterday for confusion, disorientation Has been present at bedside, Reports that patient has baseline short-term memory loss secondary to brain metastases, possible underlying dementia as well Has been reported for the past 2-3 days patient having gait disturbance (worse than normal), having difficulty with hand movements, motor skill Could not lock/unlock her walker-which is off from her baseline No seizure-like activity noted No fever or chills OBJECTIVE: Vital Signs-as noted below Exam: General-elderly female, no apparent distress Eyes-sclera nonicteric, reactive to light ENT-moist oral mucosa Neck-no jugular venous distention no carotid bruit, no thyromegaly, trachea midline Lungs-clear to auscultate no wheeze or rales Heart-regular S1-S2 Abdomen-soft nontender Extremities-no lower extremity rash or deformity Neuro-no focal neurological deficit noted, baseline dementia with short-term memory loss Lab data as noted below. ASSESSMENT & PLAN: CONFUSION/METABOLIC ENCEPHALOPATHY presented with worsening confusion/disorientation past couple of weeks family noted worsening of motor skills , poor co ordination CT HEAD:on admission -1.1 cm hyperdense focus within the left parietal vertex which has decreased in conspicuity since head CT of November 13, 2017. This favors an underlying lesion which may have decreased in size since prior exam although is suboptimally assessed on this unenhanced exam. Otherwise, unchanged appreciate neurology eval no evidence of Sz episode /CT head shows improvement of brain mets Lesion possible delirium with progression of dementia ( Alzheimer's Type ) in setting of metastatic lung cancer with brain metastases status post radiation treatment Leading to progressive cognitive impairment, short-term memory loss/Delirium/ sundowning Neurology suggested to avoid benzodiazepines( Ativan ) Which may cause paradoxical effect in elderly -worsening of confusion/ agitation Suggested to start with low-dose Seroquel 12.5-25 mg PO at night as needed for sleep and agitation dose could adjusted/titrated given pt's response In the past patient did not tolerate antiseizure medication- Keppra which worsened her confusion, patient was mostly sedated, was having hallucinations Keppra dose was tapered down , later discontinued -Per Neurology : no antiseizure medications indicated trial of low Dose acetylcholinesterase inhibitor -Aricept /Donepezil 5 mg daily ordered LUMBAR SPINE COMPRESSION FRACTURE possible Pathologic Fx due bone mets complains of mid and lower back pain for past couple of weeks. no report of recent trauma or Fall CT of [place] -SPINE shows : Acute to subacute fracture involving the superior endplate of L1 without significant retropulsion. -No extension into the posterior elements. The appearance favors a benign compression fracture. - A pathologic fracture could appear similar although is considered less likely. -Multiple mildly enlarged left periaortic and bilateral common iliac lymph nodes which are likely neoplastic and favor metastatic disease although lymphoma could appear similar. -overall Prognosis is very poor pt is scheduled for PET scan as out pt by Oncology PROTEIN CALORIE MALNUTRITION : Moderate reports of significant wt loss 12 lb /7.57 kg in the past 3 months Reports of decreased appetite Skipping meals Ordered dietary consult Added dietary supplement boost with meals 3 times daily Diet change to regular to increase calorie intake HTN BP was elevated in ER possible due to Back pain /anxiety BP much improved now cont out pt meds - CONSTIPATION chronic constipation, no BM for couple of days. No vomiting, no apparent tenderness to palpation, bowel sounds intact on exam -KUB shows no evidence of bowel obstruction -continue bowel regimen /stool softener METASTATIC LUNG CA follows with Dr Dodd On Keytruda /Pembrolizumab IV infusion every 3 weeks last week had 6th treatment of keytruda CXR: Persistent asymmetric left lung interstitial thickening which raises the possibility of lymphangitic carcinomatosis. Possible sclerotic lesion within the left humeral head. Stable cardiomegaly schedule for PET scan as out pt COPD No cough or fever. no apparent respiratory distress. 91-94% on room air. -continue home inhalers, Singulair POLYMYALGIA RHEUMATICA -continue prednisone, hydroxychloroquine CODE STATUS: Full code/needs to be readdressed over all prognosis is poor DVT PROPHYLAXIS high risk with metastatic CA DISPOSITION Patient is from [facility] personal [facility] needs for support and medical assistance as pt's functional status continues to decline PT OT evaluation requested family willing for skilled rehab Lloyd Franco updated at bedside Vital Signs: Date Time Temp Pulse Resp B/P (MAP) Pulse Ox O2 Delivery O2 Flow Rate FiO2 02/05/18 16:00 Nasal Cannula 2.0 02/05/18 15:05 36.4 79 18 156/88 (110) 94 Nasal Cannula 2.0 02/05/18 11:32 36.4 76 18 148/81 (103) 92 2.0 02/05/18 09:48 Room Air 02/05/18 07:45 36.5 80 20 158/90 (112) 93 Nasal Cannula 2.0 02/05/18 07:25 36.4 68 18 135/74 (94) 96 2.0 02/05/18 04:00 36.5 77 18 166/97 (120) 93 2.0 02/05/18 00:20 Nasal Cannula 2.0 02/04/18 23:12 36.7 66 18 123/77 (92) 97 Room Air 02/04/18 20:33 177/92 (120) 02/04/18 19:40 36.6 84 18 172/95 (120) 95 Nasal Cannula 2.0 Lab Results:
[2018-02-04] MEDS ORDERED: HALOPERIDOL LACTATE 5 MG/ML 1 ML VIAL IM PRN (19:45)
[2018-02-04] MEDS: METOPROLOL SUCC 25MG EXT REL TAB PO SCH (20:22)
[2018-02-04] MEDS: LATANOPROST 0.005% OP SOLN 2.5 ML BTL OPB SCH (20:23)
[2018-02-04] MEDS: QUETIAPINE FUMARATE 25 MG TAB PO SCH (20:25)
[2018-02-04] MEDS ORDERED: QUETIAPINE FUMARATE 25 MG TAB PO PRN (22:00)
[2018-02-04] MEDS ORDERED: QUETIAPINE FUMARATE 25 MG TAB PO SCH (22:00)
[2018-02-05] VITALS (7 sets, daily range): BP systolic 127–166; BP diastolic 8–97; PULSE 68–81; TEMP 36.4–36.7; O2SAT 90–96
[2018-02-05] MEDS: ALBUTEROL HFA 8 GM INHALER INH SCH ×4 (04:43→20:42)
[2018-02-05] MEDS: TIOTROPIUM BROMIDE 5 PUFF/90 MCG INH INH SCH (07:39)
[2018-02-05] MEDS: ENALAPRIL MALEATE 10 MG TAB PO SCH ×2 (07:41→20:42)
[2018-02-05] MEDS: FLUTICASONE PROPIONATE NA SPR 16 GM BTL NAE SCH (07:41)
[2018-02-05] MEDS: MONTELUKAST SOD 10 MG TAB PO SCH (07:42)
[2018-02-05] MEDS: METOPROLOL SUCC 50MG EXT REL TAB PO SCH (07:43)
[2018-02-05] MEDS: HYDROXYCHLOROQUINE SULFATE 200 MG TAB PO SCH (07:47)
[2018-02-05] MEDS: POTASSIUM CHLORIDE 20 MEQ TABCR PO SCH ×2 (07:47→20:45)
[2018-02-05] MEDS: QUETIAPINE FUMARATE 25 MG TAB PO SCH (13:53)
[2018-02-05] MEDS: POLYETHYLENE (MIRALAX) 17 GM PACK PO PRN (16:02)
--- NOTE | 2018-02-05 16:09 | Palliative Care Consultation ---
Consultation Date of Consultation: Feb 05, 2018. Requesting Physician: Dr. Mason Attending Physician: Dr. Mason Reason for Consultation: Goals of care History of Present Illness This 82 year old female with a PMH of metastatic lung cancer on immunotherapy ( Keytruda), hypertension, dementia, and COPD, presented to the ED for concerns of progressive confusion. Patient was recently admitted in October 2017 and evaluated by neurology for possible brain metastasis. She is unable to get an MRI due to prior aneurysmal clipping. She has had several CT brain non contrast , and EEG that showed diffuse slowing and focal slowing on the left. She was started on low dose Keppra for possible seizures which has since been discontinued due to patient intolerance. She has received brain radiation for PROCESS [employer]INE[employer] metastasis. She currently resides at [facility] and has been having evening confusion and agitation. She has been receiving Ativan 0.[address] head on admission shows 1.1 cm hyperdense focus within the left parietal vertex which has decreased in conspicuity since head CT of November 13, 2017. This favors an underlying lesion which may have decreased in size since prior exam although is suboptimally assessed on this unenhanced exam. Otherwise , unchanged. Patient also has lumbar spine fracture of L1, pathologic vs compression, mildly enlarged left periaortic and bilateral common iliac lymph nodes favoring metastatic disease. She's had recent weight loss of 12lb in 3 months, not eating or drinking as much. PET CT was scheduled for tomorrow, but now she is in hospital so it was cancelled. Uncertain of further treatment plan with Keytruda-- she follows with Dr. Mario Dodd. Palliative is consulted to discuss goals of care with patient and family given her advanced age, cancer, dementia, brain mets, other comorbidities, and recent decline. I met for lengthy amount of time with patient and her two sons Malachi and Lloyd. Please see plan below. Past Medical/Surgical History Medical History: (1) Arthritis of right knee Status: Chronic (2) COPD (chronic obstructive pulmonary disease) Status: Chronic (3) Hypertension Status: Chronic (4) Left knee DJD Status: Chronic (5) Paroxysmal supraventricular tachycardia Status: Chronic (6) PMR (polymyalgia rheumatica) Status: Chronic (7) Seizure Status: Resolved (8) UTI (urinary tract infection) Status: Resolved Surgical Problems: (1) S/P hysterectomy Status: Resolved (2) S/P knee replacement Status: Resolved Family History As reported: Cancer Heart disease Hypertension Lung disease Stroke Social History Smoking Status: Former Smoker History of Alcohol Use: Yes (occassionally) Drug Use: none Marital Status: Housing Status: other ([facility]) Occupation Status: retired Review of Systems Constitutional: + weakness ENT: No trouble swallowing Respiratory: No cough, No shortness of breath Cardiac: No chest pain, No edema Abdomen: No pain, No nausea, No vomiting Female : No problem reported Psychiatric: No depression symptoms, No anxiety Allergies Coded Allergies: Aspirin (Verified Allergy, Intermediate, HIVES, 02/03/18) Erythromycin (Verified Allergy, Intermediate, HIVES, N/V, 02/03/18) Nitrofurantoin (Verified Allergy, Intermediate, rash, 02/03/18) Sulfa Antibiotics (Verified Allergy, Intermediate, HIVES, 02/03/18) Amoxicillin (Verified Adverse Reaction, Mild, NAUSEA, 02/03/18) Ciprofloxacin (Verified Adverse Reaction, Mild, N/V, 02/03/18) Clavulanic Acid (Verified Adverse Reaction, Mild, VOMITING, 02/03/18) Codeine (Verified Adverse Reaction, Mild, N/V, 02/03/18) Morphine (Verified Adverse Reaction, Mild, VOMITING, 02/03/18) Medications Current Inpatient Medications Medications (Trade) Dose Ordered Sig/Amos Route Start Time Stop Time Status Last Admin Dose Admin Acetaminophen (Tylenol Tab) 650 mg Q4H PRN PO 02/03/18 16:30 03/05/18 16:29 02/04/18 20:20 650 MG Ondansetron HCl (Zofran Inj) 4 mg Q6H PRN IV 02/03/18 16:30 03/05/18 16:29 Albuterol (Ventolin Hfa Inhaler) 2 puffs Q6H INH 02/03/18 16:45 03/05/18 16:44 02/05/18 11:07 2 PUFFS Enalapril Maleate (Vasotec Tab) 10 mg BID PO 02/04/18 09:00 03/06/18 08:59 02/05/18 07:41 10 MG Fluticasone Propionate (Flonase Nasal [place]) 2 sprays DAILY GREGORIO 8/20/18 09:00 03/06/18 08:59 02/05/18 07:41 2 SPRAYS Hydroxychloroquine Sulfate (Plaquenil Tab) 200 mg DAILY PO 02/04/18 09:00 03/06/18 08:59 02/05/18 07:47 200 MG Albuterol/ Ipratropium (Duoneb) 3 ml Q6H PRN INH 02/03/18 16:45 03/05/18 16:44 Latanoprost (Xalatan Oph Soln) 1 drops HS OPB 02/03/18 21:00 03/05/18 20:59 02/04/18 20:23 1 DROPS Metoprolol Succinate (Toprol Xl Tab) 50 mg QAM PO 02/04/18 09:00 03/06/18 08:59 02/05/18 07:43 50 MG Metoprolol Succinate (Toprol Xl Tab) 25 mg QPM PO 02/04/18 21:00 03/06/18 20:59 02/04/18 20:22 25 MG Montelukast Sodium (Singulair Tab) 10 mg DAILY PO 02/04/18 09:00 03/06/18 08:59 02/05/18 07:42 10 MG Prednisone (PredniSONE TAB) 1 mg DAILY PO 02/04/18 09:00 03/06/18 08:59 02/05/18 07:44 1 MG Prednisone (PredniSONE TAB) 5 mg DAILY PO 02/04/18 09:00 03/06/18 08:59 02/05/18 07:43 5 MG Senna/Docusate Sodium (Senokot S Tab) 1 tab DAILY PRN PO 02/03/18 17:45 03/05/18 17:44 Tiotropium [place] (Spiriva Handihaler Inhaler) 1 puff DAILY INH 02/04/18 09:00 03/06/18 08:59 02/05/18 07:39 1 PUFF Polyethylene (Miralax Powder Packet) 17 gm DAILY PRN PO 02/03/18 18:00 03/05/18 17:59 02/04/18 08:26 17 GM Potassium Chloride (Klor-Con Tab) 20 meq BID PO 02/03/18 21:00 03/05/18 20:59 02/05/18 07:47 20 MEQ Miscellaneous Information (Order Awaiting Action) 1 ea QS N/A 02/04/18 00:00 03/06/18 00:00 Miscellaneous Information (Order Awaiting Action) 1 ea QS N/A 02/04/18 00:00 03/06/18 00:00 Acetaminophen 650 mg/Empty Bag 65 ml @ 260 mls/hr Q6H PRN IV 02/03/18 19:00 03/05/18 18:59 Quetiapine Fumarate (seroQUEL TAB) 25 mg HS PO 02/04/18 21:00 03/06/18 20:59 02/04/18 20:25 25 MG Quetiapine Fumarate (seroQUEL TAB) 12.5 mg Q8 PRN PO 02/04/18 22:00 03/06/18 21:59 Haloperidol Lactate (Haldol Inj) 5 mg Q6 PRN IM 02/04/18 19:45 03/06/18 19:44 Enteral Nutritional Formula (Boost Plus Vanilla) 1 can TIDM PO 02/05/18 17:00 03/07/18 16:59 Physical Exam Date Time Temp Pulse Resp B/P (MAP) Pulse Ox O2 Delivery O2 Flow Rate FiO2 02/05/18 15:05 36.4 79 18 156/88 (110) 94 Nasal Cannula 2.0 02/05/18 11:32 36.4 76 18 148/81 (103) 92 2.0 02/05/18 09:48 Room Air 02/05/18 07:45 36.5 80 20 158/90 (112) 93 Nasal Cannula 2.0 02/05/18 07:25 36.4 68 18 135/74 (94) 96 2.0 02/05/18 04:00 36.5 77 18 166/97 (120) 93 2.0 02/05/18 00:20 Nasal Cannula 2.0 02/04/18 23:12 36.7 66 18 123/77 (92) 97 Room Air 02/04/18 20:33 177/92 (120) 02/04/18 19:40 36.6 84 18 172/95 (120) 95 Nasal Cannula 2.0 02/04/18 16:49 Nasal Cannula 2.0 General Appearance: no apparent distress, + obese Eyes: + pertinent finding (bilateral eyes reddened) ENT: hearing grossly normal Neck: supple, no JVD Respiratory: no respiratory distress, no accessory muscle use, + pertinent finding (room air) Cardiovascular: regular rate, rhythm, no edema, + normal peripheral pulses Abdomen: normal bowel sounds, non tender, soft Neurologic/Psychiatric: alert, + disoriented Skin: normal color Assessment & Plan Problem list: Weakness Confusion- hx dementia, brain mets Lung cancer with mets to brain and skull Goals of care Palliative care recs: -Patient unable to participate in meaningful goals of care conversation with her confusion. -Lengthy discussion with patient's two sons Malachi and Lloyd Franco. We discussed code status, goals of care, hospice, skilled rehab, and patient's medical conditions. Both sons are in agreement that patient should be DNR. They would like to discuss with their father/patient's prior to making a decision. They will make the decision prior to patient leaving the hospital. I will offer a POLST form. -Discussed goals of care. At this point, they are not certain patient could even withstand another Keytruda infusion, which I agree with. Patient is weak, quite confused, and from their report, has been declining quite rapidly in the recent months and weeks. The patient's sons believe that moving towards comfort care is reasonable at this point, but their father is not on the same page-- whether it's due to denial or lack of understanding they aren't certain. They are going to continue to have conversations with him. -At this point, plan is for [facility] skilled care. If patient is unable to participate in therapy, she will likely transition to long-term care there. We discussed the addition of hospice care and what they could provide. Patient would certainly quality for hospice care at this point. Thank you kindly for this consult. I will follow. Total time spent 70 minutes with >50% of time spent at bedside with patient and family counseling and discussing goals of care, CODE STATUS, and disposition.
[2018-02-05] MEDS ORDERED: BOOST PLUS VANILLA OR BOOST GLUCOSE CONTROL STRAWBERRY PO SCH (17:00)
--- NOTE | 2018-02-05 17:14 | Progress Note ---
Internal Med Progress Note Date of Service: Feb 05, 2018. Provider Documentation: SUBJECTIVE: More confused and disoriented today Trying to climb out of bed Could not follow command Family-2 sons present at bedside OBJECTIVE: Vital Signs-as noted below Exam: General-elderly female, confused/disoriented Eyes-sclera nonicteric, reactive to light ENT-erythematous nasal bridge, bilateral cheeks (patient has history of rosacea ) menstrual mucosa Neck-no jugular venous distention no carotid bruit, no thyromegaly, trachea midline Lungs-clear to auscultate no wheeze or rales Heart-regular S1-S2 Abdomen-soft nontender Extremities-no lower extremity rash or deformity Neuro-more disoriented, confused today, No focal neurological deficit noted Lab data as noted below. ASSESSMENT & PLAN: CONFUSION/METABOLIC ENCEPHALOPATHY Mental status continues to worsen Worsening of delirium/sundowning Patient was given 25 mg Seroquel at night last night-for increased agitation/ combativeness To be lethargic, disoriented this morning Decrease Seroquel dose to 12.5 mg at bedtime as needed for anxiety/sleep CT HEAD:on admission -1.1 cm hyperdense focus within the left parietal vertex which has decreased in conspicuity since head CT of November 13, 2017. This favors an underlying lesion which may have decreased in size since prior exam although is suboptimally assessed on this unenhanced exam. Otherwise, unchanged appreciate neurology eval no evidence of Sz episode /CT head shows improvement of brain mets Lesion possible delirium with progression of dementia ( Alzheimer's Type ) in setting of metastatic lung cancer with brain metastases status post radiation treatment Leading to progressive cognitive impairment, short-term memory loss/Delirium/ sundowning Avoid benzodiazepine/Ativan Which may cause paradoxical effect in elderly -worsening of confusion/ agitation Started with low-dose Seroquel 12.5-mg night as needed for sleep and agitation dose could adjusted/titrated given pt's response In the past patient did not tolerate antiseizure medication- Keppra which worsened her confusion, patient was mostly sedated, was having hallucinations Keppra dose was tapered down , later discontinued -Per Neurology : no antiseizure medications indicated trial of low Dose acetylcholinesterase inhibitor -Aricept /Donepezil 5 mg daily ordered LUMBAR SPINE COMPRESSION FRACTURE possible Pathologic Fx due bone mets complains of mid and lower back pain for past couple of weeks. no report of recent trauma or Fall CT of [place] -SPINE shows : Acute to subacute fracture involving the superior endplate of L1 without significant retropulsion. -No extension into the posterior elements. The appearance favors a benign compression fracture. - A pathologic fracture could appear similar although is considered less likely. -Multiple mildly enlarged left periaortic and bilateral common iliac lymph nodes which are likely neoplastic and favor metastatic disease although lymphoma could appear similar. -overall Prognosis is very poor pt is scheduled for PET scan as out pt by Oncology Continue PT OT Pain control PROTEIN CALORIE MALNUTRITION : Moderate reports of significant wt loss 12 lb /7.57 kg in the past 3 months Reports of decreased appetite Skipping meals Ordered dietary consult Added dietary supplement boost with meals 3 times daily Diet change to regular to increase calorie intake HTN BP stable Continue outpatient meds - CONSTIPATION -X-ray of KUB : IMPRESSION: No evidence of pathologic bowel dilatation. Fecal load is within normal limits for age. -continue bowel regimen /stool softener METASTATIC LUNG CA follows with Dr Dodd On Keytruda /Pembrolizumab IV infusion every 3 weeks Received 6th treatment of keytruda last week CXR: Persistent asymmetric left lung interstitial thickening which raises the possibility of lymphangitic carcinomatosis. Possible sclerotic lesion within the left humeral head. Stable cardiomegaly Scheduled for PET scan tomorrow 02/06/2018 as outpatient Discussed with Dr. Dodd PET scan will be rescheduled for next week at [facility] If PET scan shows worsening/unchanged cancer with metastasis-patient will not be a candidate to treatment with Keytruda Palliative care consulted Appreciate input Patient's is still in denial due to lack understanding -severity of 's Malignancy secondary to dementia Son's are willing for Palliative care if no further treatment in available there is no medical POA Pt is incapable to make decision herselft Family will continue to have talk with their Father for adjunct faculty for medical terminology goal /care plan for the pt 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, hydroxychloroquine CODE STATUS: Full code/needs to be readdressed over all prognosis is poor DVT PROPHYLAXIS high risk with metastatic CA DISPOSITION Patient is from [facility] home needs for support and medical assistance as pt's functional status continues to decline PT OT evaluation requested-appreciate input pt will need inpatient rehab referral made to [facility] possible transfer to [facility] tomorrow 02/06/18 Pt will need Transport arrangement Social service following for DC plan Vital Signs: Date Time Temp Pulse Resp B/P (MAP) Pulse Ox O2 Delivery O2 Flow Rate FiO2 02/05/18 16:00 Nasal Cannula 2.0 02/05/18 15:05 36.4 79 18 156/88 (110) 94 Nasal Cannula 2.0 02/05/18 11:32 36.4 76 18 148/81 (103) 92 2.0 02/05/18 09:48 Room Air 02/05/18 07:45 36.5 80 20 158/90 (112) 93 Nasal Cannula 2.0 02/05/18 07:25 36.4 68 18 135/74 (94) 96 2.0 02/05/18 04:00 36.5 77 18 166/97 (120) 93 2.0 02/05/18 00:20 Nasal Cannula 2.0 02/04/18 23:12 36.7 66 18 123/77 (92) 97 Room Air 02/04/18 20:33 177/92 (120) 02/04/18 19:40 36.6 84 18 172/95 (120) 95 Nasal Cannula 2.0
[2018-02-05] MEDS ORDERED: NURSING VERBAL MED ORDER ONE (19:15)
[2018-02-05] MEDS ORDERED: QUETIAPINE FUMARATE 25 MG TAB PO PRN (20:00)
[2018-02-05] MEDS: METOPROLOL SUCC 25MG EXT REL TAB PO SCH (20:42)
[2018-02-05] MEDS: BOOST BREEZE NUTRITION DRINK 1 BOX PO SCH (20:42)
[2018-02-05] MEDS: LATANOPROST 0.005% OP SOLN 2.5 ML BTL OPB SCH (20:43)
[2018-02-05] MEDS: ACETAMINOPHEN 325 MG TAB PO PRN (20:44)
[2018-02-06] MEDS: ALBUTEROL HFA 8 GM INHALER INH SCH ×2 (04:45→11:43)
[2018-02-06 07:09] VITALS: BP 152/81; PULSE 73; TEMP 36.6; O2SAT 96
[2018-02-06] MEDS ORDERED: SRQ25 PO (07:39)
[2018-02-06] MEDS ORDERED: Boost Nutritional Drink PO (07:41)
--- NOTE | 2018-02-06 07:44 | Discharge Instructions ---
Discharge Instructions Date of Service Feb 06, 2018. Admission Reason for Admission: Back Pain, Weakness Discharge Discharge Diagnosis / Problem: METASTATIC LUNG CA /DEMENTIA /AMBULATORY DYSFUNCTION Discharge Goals Goal(s): Decrease discomfort, Improve function, Increase independence, Improve disease control, Diagnostic testing Activity Recommendations Activity Level: Assistance Required Therapies: Physical Therapy, Occupational Therapy . Additional Information Patient informed of condition: Yes Advance Directives: No DNR: No Level of Care: Skilled Communicable Disease: No Prognosis: Other (POOR PROGNOSIS WITH METASTATIC MALIGNANCY ) Singh Catheter: No Instructions / Follow-Up Instructions / Follow-Up FOLLOW UP WITH PHYSICIAN AT [facility] PET SCAN OUT PATIENT AT [facility] NEXT WEEK OFFICE WILL CONTACT WITH SCHEDULE HEMATOLOGY /ONCOLOGY FOLLOW UP WITH DR MORENO CARLOS IN 1-2 WEEKS AFTER THE PET SCAN IMAGING OFFICE WILL CONTACT WITH SCHEDULE Current Hospital Diet Patient's current hospital diet: Regular Diet Discharge Diet Recommended Diet: Regular Diet Pending Studies Studies pending at discharge: no Medical Emergencies . Who to Call and When: Medical Emergencies: If at any time you feel your situation is an emergency, please call 911 immediately. . Non-Emergent Contact Non-Emergency issues call your: Primary Care Provider . . "Provider Documentation" section prepared by Cora Mason. . Core Measure Problem Core Measures: None
[2018-02-06] MEDS ORDERED: DONEPEZIL HCL 5 MG TAB PO SCH (08:00)
[2018-02-06] MEDS ORDERED: ENOXAPARIN 40 MG/0.4 ML SYR SQ SCH (08:00)
[2018-02-06] MEDS: MONTELUKAST SOD 10 MG TAB PO SCH (08:18)
[2018-02-06] MEDS: METOPROLOL SUCC 50MG EXT REL TAB PO SCH (08:18)
[2018-02-06] MEDS: HYDROXYCHLOROQUINE SULFATE 200 MG TAB PO SCH (08:19)
[2018-02-06] MEDS: TIOTROPIUM BROMIDE 5 PUFF/90 MCG INH INH SCH (08:19)
[2018-02-06] MEDS: POTASSIUM CHLORIDE 20 MEQ TABCR PO SCH (08:19)
[2018-02-06] MEDS: ENALAPRIL MALEATE 10 MG TAB PO SCH (08:19)
[2018-02-06] MEDS: FLUTICASONE PROPIONATE NA SPR 16 GM BTL NAE SCH (08:20)
[2018-02-06] MEDS: BOOST BREEZE NUTRITION DRINK 1 BOX PO SCH (08:21)
[2018-02-06 11:24] VITALS: BP 182/97; PULSE 73; TEMP 36.5; O2SAT 94
[2018-02-06 11:30] VITALS: BP 182/97; PULSE 73; TEMP 36.5; O2SAT 94
--- NOTE | 2018-02-06 11:57 | Discharge Summary ---
Discharge Summary Date of Service Feb 06, 2018. Discharge Summary Admission Date: Feb 03, 2018 at 16:03 Discharge Date: Feb 06, 2018 Discharge Disposition: [facility] facility ([facility] ) Principal Diagnosis: METASTATIC LUNG CA /DEMENTIA /AMBULATORY DYSFUNCTION Procedures: LUMBAR SPINE CT WITHOUT CONTRAST 1. Acute to subacute fracture involving the superior endplate of L1 without significant retropulsion's. No extension into the posterior elements. The appearance favors a benign compression fracture. A pathologic fracture could appear similar although it is considered less likely. 2. Multiple mildly enlarged left periaortic and bilateral common iliac lymph nodes which are likely neoplastic in favor metastatic disease although lymphoma could appear similar CT HEAD WITHOUT CONTRAST 1. 1.1 hypodense focus within the left parietal vertex which has decreased in conspicuity seen seen head CT of November 13, 2017 This favors an underlying lesion which may have decreased in size since prior exam although it is suboptimally assessed on the previous unenhanced exam. Otherwise, unchanged appearance of the brain. 2. Possible 9 mm sclerotic metastasis within the right aspect of the clivus. CHEST X-RAY ONE VIEW PORTABLE 1. Persistent symmetric left lung interstitial thickening which raises the possibility of lymphangitic carcinomatosis. 2. Possible sclerotic lesion within the left humeral head. 3. Stable cardiomegaly. X-RAY OF KUB Impression: No evidence of pathologic bowel dilatation. Fecal load is within normal limits for age. Consultations: [facility] Medication Reconciliation New Medications: Quetiapine Fumarate (Quetiapine Fumarate) 25 Mg Tab 12.5 MG PO HS PRN for sleep , #30 TAB [Boost Nutritional Drink] () 1 BOX LIQD 1 BOX PO BIDM for 30 Days, #60 BOX Continued Medications: Acetaminophen (Tylenol) 325 Mg Tab 650 MG PO Q6 PRN for Pain or Fever, TAB Albuterol Hfa (Ventolin Hfa) 200 Puffs/74152 Mcg Aers 2 PUFFS INH Q6H for Shortness of Breath, #1 INHALER Colesevelam Hcl (Welchol) 625 Mg Tab 625 MG PO BID, TAB Enalapril Maleate (Vasotec) 10 Mg Tab 10 MG PO BID, TAB Fluticasone Furoate-Vilanterol (Breo Ellipta) 1 Inh Inh 1 PUFF INH DAILY Fluticasone Propionate (Fluticasone Propionate) 120 Sprays/6000 Mcg Inha 2 SPRAYS GREGORIO DAILY Hydroxychloroquine Sulfate (Plaquenil) 200 Mg Tab 200 MG PO DAILY, TAB Ipratropium-Albuterol (Duoneb) 3 Ml Nebu 1 TREATMENT INH Q6 PRN for cough/sob, INHA Latanoprost (Xalatan 0.005% Oph Lizz) 0.005 % Lizz 1 DROP OPB HS Melatonin (Melatonin Maximum Strengt) 5 Mg Tab 1 TAB PO HS for 30 Days, #30 TAB 1 Refill Metoprolol Succinate (Metoprolol Succinate ER) 25 Mg Tabcr 50 MG PO QAM Metoprolol Succinate (Toprol Xl) 25 Mg Tabcr 25 MG PO QPM, #30 TAB Montelukast Sod (Montelukast Sodium) 10 Mg Tab 10 MG PO DAILY Ondasetron Odt (Zofran Odt) 4 Mg Tab 4 MG SL Q8 for Nausea, #6 TAB Polyethylene (Polyethylene Glycol 3350) 527 Gm Soln 17 GM PO DAILY PRN for Constipation Prednisone (Prednisone) 1 Mg Tab 1 MG PO DAILY, TAB in addition to 5mg tab Prednisone (Prednisone) 5 Mg Tab 5 MG PO DAILY, TAB Sennosides-Docusate Sodium (Sennalax-S) 1 Tab Tab 1 TAB PO DAILY PRN for Constipation Tiotropium Austin (Spiriva Handihaler) 30 Puff/540 Mcg Aerp 1 CAP INH DAILY, INHALER Discontinued Medications: Hydrochlorothiazide (Hydrochlorothiazide) 25 Mg Tab 25 MG PO QAM Lorazepam (Lorazepam) 0.5 Mg Tab 1 TAB PO HS PRN for Sleep Potassium Chloride (Potassium Chloride ER) 20 Meq Tab 20 MEQ PO BID Admission Information HPI (per Admitting provider): Pt is 82 y/o F with PMH COPD, HTN, PMR lung CA with possible brain metastasis and others listed below presented to ER with complaint of increased confusion & increased back pain. History obtained from patient's family secondary to patient's history of problems with short-term memory loss. Patient is currently residing at [facility] for the past 7 weeks. Has it was too difficult for her to care for patient at home. Patient with history hospitalization 11/12/17-11/14/17 for possible brain metastasis versus hemorrhage. She was discharged to [facility] and then went back home now is at [facility]. Family reports for the past 3 weeks patient has been complaining of mid and low back pain and trial of physical therapy was started. Reports patient takes Tylenol which seems to control pain. Patient ambulates with walker. Patient's states 2-3 days ago noticed she was having difficult with hand eye coordination and was having difficulty using her walker and locking and nonlocking the walker. States seems to have increased confusion memory problems over past couple of weeks. He reports she appeared to have some labored breathing this morning. Not on home oxygen. Patient has been off of Keppra, no reported seizures. Denies any other recent medicine changes. Reports history of constipation, usually resolved with meds and prune juice. No BM for 2 days. Patient with reported chronic poor appetite. Has been having chronic weakness. reports noticing increased poor appetite and increased weakness the week following Ketruda treatments. Patient with reported weight loss since last year. Reports last week patient had her 6th Keytruda treatment. Patient was scheduled to have a PET scan on 02/06/18. Denies known fever/chills, diaphoresis, vomiting, MCMAHAN, syncope, falls, hemoptysis, cough , choking, reported abdominal pain, extremity edema, rashes, urinary symptoms. Patient was reporting increased back pain after CT scan in ER today and then received acetaminophen and since patient reports has been pain-free and is denying any other complaints. Physical Exam (per Admitting): General Appearance: no apparent distress (Lying on right side in bed), + thin Head: normocephalic, atraumatic Eyes: normal inspection, PERRL, sclerae normal ENT: hearing grossly normal, pharynx normal, + pertinent finding (Mucous membranes slightly dry) Neck: supple, trachea midline Respiratory/Chest: no respiratory distress, no accessory muscle use, + decreased breath sounds Cardiovascular: regular rate, rhythm, normal peripheral pulses Abdomen/GI: normal bowel sounds, non tender, soft Back: + pertinent finding (No tenderness to palpation at this time (patient was medicated with Tylenol prior to exam)) Extremities/Musculoskelatal: no pedal edema, non-tender, + pertinent finding (Bilateral pedal pulls and pushes intact, flexion of bilateral hips intact, flexion and extension of bilateral knees intact. Distal pulses intact, brisk capillary refill, sensation to light touch) Neurologic/Psych: alert, + pertinent finding (Patient is pleasantly confused ) Skin: warm/dry Hospital Course pleasant , no episode of agitation denies of any headache no fever or chills stable to be transferred to [facility] for SNF today PHYSICAL EXAM ; General-elderly female, confused/disoriented Eyes-sclera nonicteric, reactive to light ENT-erythematous nasal bridge, bilateral cheeks (patient has history of rosacea ) menstrual mucosa Neck-no jugular venous distention no carotid bruit, no thyromegaly, trachea midline Lungs-clear to auscultate no wheeze or rales Heart-regular S1-S2 Abdomen-soft nontender Extremities-no lower extremity rash or deformity Neuro-more disoriented, confused today, No focal neurological deficit noted Last 8 Hrs Date Time Temp Pulse Resp B/P (MAP) Pulse Ox O2 Delivery O2 Flow Rate FiO2 02/06/18 11:30 36.5 73 18 94 Nasal Cannula 02/06/18 11:24 36.5 73 18 182/97 (125) 94 2.0 02/06/18 10:55 Nasal Cannula 2.0 02/06/18 07:09 36.6 73 20 152/81 (104) 96 2.0 CONFUSION/METABOLIC ENCEPHALOPATHY presented with worsening confusion/disorientation past couple of weeks family noted worsening of motor skills , poor co ordination CT HEAD:on admission -1.1 cm hyperdense focus within the left parietal vertex which has decreased in conspicuity since head CT of November 13, 2017. This favors an underlying lesion which may have decreased in size since prior exam although is suboptimally assessed on this unenhanced exam. Otherwise, unchanged appreciate neurology eval no evidence of Sz episode /CT head shows improvement of brain mets Lesion possible delirium with progression of dementia ( Alzheimer's Type ) in setting of metastatic lung cancer with brain metastases status post radiation treatment Leading to progressive cognitive impairment, short-term memory loss/Delirium/ sundowning Neurology suggested to avoid benzodiazepines( Ativan ) Which may cause paradoxical effect in elderly -worsening of confusion/ agitation Suggested to start with low-dose Seroquel 12.5-25 mg PO at night as needed for sleep and agitation dose could adjusted/titrated given pt's response In the past patient did not tolerate antiseizure medication- Keppra which worsened her confusion, patient was mostly sedated, was having hallucinations Keppra dose was tapered down , later discontinued -Per Neurology : no antiseizure medications indicated trial of low Dose acetylcholinesterase inhibitor -Aricept /Donepezil 5 mg daily ordered D/w family members wants to hold Aricept for now pt responded fairly well with low dose Seroquel 12.5 mg HS PRN for sleep and agitation will be discharged to [facility] with above dose LUMBAR SPINE COMPRESSION FRACTURE possible Pathologic Fx due bone mets complains of mid and lower back pain for past couple of weeks. no report of recent trauma or Fall CT of [place] -SPINE shows : Acute to subacute fracture involving the superior endplate of L1 without significant retropulsion. -No extension into the posterior elements. The appearance favors a benign compression fracture. - A pathologic fracture could appear similar although is considered less likely. -Multiple mildly enlarged left periaortic and bilateral common iliac lymph nodes which are likely neoplastic and favor metastatic disease although lymphoma could appear similar. -overall Prognosis is very poor pt is scheduled for PET scan as out pt by Oncology PROTEIN CALORIE MALNUTRITION : Moderate reports of significant wt loss 12 lb /7.57 kg in the past 3 months Reports of decreased appetite Skipping meals Ordered dietary consult Added dietary supplement boost with meals 3 times daily Diet change to regular to increase calorie intake HTN BP was elevated in ER possible due to Back pain /anxiety BP much improved now cont out pt meds - CONSTIPATION chronic constipation, no BM for couple of days. 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 involving the left upper lobe and left lower lobe, contralateral lymphadenopathy T3/T4 N3, stage IIIc PDL 1 expression> 70% EGFR and ALK negative Possible brain metastatic disease (left parietal vertex) versus bleeding because of the subarachnoid hemorrhage -MRI of brain could not be done because of intracranial aneurysmal sleep -Treated with radiation treatment on left parietal lesion on 12/07/2017 at [facility] -Started on Keytruda therapy every 3 weeks on 10/11/2017 On Keytruda /Pembrolizumab IV infusion every 3 weeks last week had 6th treatment of keytruda CXR: Persistent asymmetric left lung interstitial thickening which raises the possibility of lymphangitic carcinomatosis. Possible sclerotic lesion within the left humeral head. Stable cardiomegaly PET CT scan on 10/03/2017: -ill-defined left upper lobe spiculated nodule measuring 2.48-1.7 cm, nodular thickening of the left major fissure and additional lung including left lower lobe and upper lobe suspicious for carcinomatosis. -Intensive mediastinal left hilar, bilateral supraclavicular metabolic active lymphadenopathy measuring between 1.5-2 cm -No suspicious finding noted in the abdomen or in the kelsey -Focal uptake noted in the left femoral head and appears to be DJD without any corresponding findings on the CT scan schedule for PET scan as out pt in a week Prior hematology oncology-if repeat PET scan shows no improvement in cancer burden, or worsening/progression of disease pt will not be a candidate for further Keytruda treatment -Family updated willing for Hospice as prognosis remains very poor -transition to palliative care/hospice, after the repeat PET scan and discussion with Dr. Dodd hematology oncology clinic-if no further treatment option available COPD No cough or fever. no apparent respiratory distress. 91-94% on room air. -continue home inhalers, Singulair POLYMYALGIA RHEUMATICA -continue prednisone, hydroxychloroquine CODE STATUS: Full code/needs to be readdressed over all prognosis is poor DVT PROPHYLAXIS high risk with metastatic CA sub q heparin DISPOSITION accepted at [facility] for [facility] rehab will be transferred to SNF today Son updated at bedside Total time spent on discharge = 40 mins This includes examination of the patient, discharge planning, medication reconciliation, and communication with other providers. Discharge Instructions Discharge Instructions Date of Service Feb 06, 2018. Admission Reason for Admission: Back Pain, Weakness Discharge Discharge Diagnosis / Problem: METASTATIC LUNG CA /DEMENTIA /AMBULATORY DYSFUNCTION Discharge Goals Goal(s): Decrease discomfort, Improve function, Increase independence, Improve disease control, Diagnostic testing Activity Recommendations Activity Level: Assistance Required Therapies: Physical Therapy, Occupational Therapy . Additional Information Patient informed of condition: Yes Advance Directives: No DNR: No Level of Care: Skilled Communicable Disease: No Prognosis: Other (POOR PROGNOSIS WITH METASTATIC MALIGNANCY ) Singh Catheter: No Instructions / Follow-Up Instructions / Follow-Up FOLLOW UP WITH PHYSICIAN AT [facility] PET SCAN OUT PATIENT AT [facility] NEXT WEEK OFFICE WILL CONTACT WITH SCHEDULE HEMATOLOGY /ONCOLOGY FOLLOW UP WITH DR MORENO DODD IN 1-2 WEEKS AFTER THE PET SCAN IMAGING OFFICE WILL CONTACT WITH SCHEDULE Current Hospital Diet Patient's current hospital diet: Regular Diet Discharge Diet Recommended Diet: Regular Diet Pending Studies Studies pending at discharge: no Medical Emergencies . Who to Call and When: Medical Emergencies: If at any time you feel your situation is an emergency, please call 911 immediately. . Non-Emergent Contact Non-Emergency issues call your: Primary Care Provider . . "Provider Documentation" section prepared by Cora Mason. . Core Measure Problem Core Measures: None Additional Copies To Moreno Dodd M.D.
[2018-02-06] MEDS ORDERED: ENALAPRIL MALEATE 5 MG TAB PO STA (12:33)
--- NOTE | 2018-02-06 15:23 | Palliative Care Progress Note ---
Palliative Care Progress Note Date of Service Feb 06, 2018. Subjective Pt evaluation today including: conversation w/ patient, conversation w/ family (two sons Malachi and Lloyd), physical exam, chart review Patient awake, alert and oriented to person and place today. She has no complaints. Sons Lloyd and Malachi at bedside. They still plan to talk with their father about patient's code status and goals of care. Plan is for patient to go to [facility] today at 4pm. Review of Systems Constitutional: + weakness ENT: No trouble swallowing Respiratory: No shortness of breath, No dyspnea on exertion Cardiac: No chest pain, No edema Abdomen: No pain, No nausea, No vomiting Female : No problem reported Neurologic: + memory loss Psychiatric: No anxiety Objective Vital Signs Date Time Temp Pulse Resp B/P (MAP) Pulse Ox O2 Delivery O2 Flow Rate FiO2 02/06/18 11:30 36.5 73 18 94 Nasal Cannula 02/06/18 11:24 36.5 73 18 182/97 (125) 94 2.0 02/06/18 10:55 Nasal Cannula 2.0 02/06/18 07:09 36.6 73 20 152/81 (104) 96 2.0 02/06/18 00:05 Nasal Cannula 2.0 02/05/18 22:56 36.4 78 20 127/66 (86) 90 Nasal Cannula 2.0 Humidified Oxygen 02/05/18 19:44 36.7 81 18 160/83 (108) 93 Nasal Cannula 2.0 02/05/18 16:00 Nasal Cannula 2.0 02/05/18 15:05 36.4 79 18 156/88 (110) 94 Nasal Cannula 2.0 Physical Exam General Appearance: no apparent distress Eyes: + pertinent finding (bilateral eyes reddened) ENT: hearing grossly normal Neck: supple, no JVD Respiratory/Chest: lungs clear, no respiratory distress, no accessory muscle use Cardiovascular: regular rate, rhythm, no edema, + normal peripheral pulses Abdomen: normal bowel sounds, non tender, soft Neurologic/Psychiatric: alert, + disoriented Skin: normal color Laboratory Results Last 24 Hours Test 02/06/18 11:26 Bedside Glucose 118 mg/dl Assessment and Plan Problem list: Weakness Confusion- hx dementia, brain mets Lung cancer with mets to brain and skull Goals of care Palliative care recs: -Patient's sons to discuss patient's code status with their father/patient's . They both want patient to be a DNR. -Patient being discharged to [facility] today, so further goals of care discussion will happen there. Patient's family understands that she may not improve with therapy, at which time they will consider permanent SNF placement and possibly hospice. -Uncertain if patient will undergo another Keytruda infusion. Family to decide once they meet with Dr. Dodd. -PET/CT scan scheduled as outpatient. -Continue Seroquel 12.5mg QHS PRN agitation. 25mg was too sedating for patient. -The sons know how to get a hold of me with any further questions. Total time spent 25 minutes with >50% of time spent at bedside with patient and family counseling and discussing goals of care.
== END 2018-02-06 16:15 | DRG 542 ==
LOC: EDBD 11:53 → C.EDC 11:54 → C.MED 16:03 → ENRESERV 17:02 → C.4E 02-04 11:20 → ENRESERV 02-04 11:48
PROVIDERS: ADMIT Hospitalist; ATTEND Hospitalist
DX: M84.58XA Pathological fracture in neoplastic disease, other specified site, initial encounter for fracture (principal); G93.41 Metabolic encephalopathy; C79.51 Secondary malignant neoplasm of bone; C79.31 Secondary malignant neoplasm of brain; C34.90 Malignant neoplasm of unspecified part of unspecified bronchus or lung; E44.0 Moderate protein-calorie malnutrition; G30.9 Alzheimer's disease, unspecified; F02.80 Dementia in other diseases classified elsewhere, unspecified severity, without behavioral disturbance, psychotic disturbance, mood disturbance, and anxiety; R26.9 Unspecified abnormalities of gait and mobility; I10 Essential (primary) hypertension; K59.09 Other constipation; J44.9 Chronic obstructive pulmonary disease, unspecified; M35.3 Polymyalgia rheumatica; Z87.891 Personal history of nicotine dependence; Z79.51 Long term (current) use of inhaled steroids; Z79.52 Long term (current) use of systemic steroids; Z79.899 Other long term (current) drug therapy; Z88.0 Allergy status to penicillin; Z88.1 Allergy status to other antibiotic agents; Z88.2 Allergy status to sulfonamides; Z88.5 Allergy status to narcotic agent; Z88.6 Allergy status to analgesic agent